=== PATIENT | female | born 1995 | race Caucasian/White ===

== ENCOUNTER 2017-08-13 17:55 | Emergency (ER) | payer OTHER ==
[2017-08-13 18:13] VITALS: BP 134/73; PULSE 80; RESP 18; TEMP 99.5
[2017-08-13] MEDS ORDERED: METOCLOPRAMIDE 5 MG/ML 2 ML VIAL IVP STA (19:06)
[2017-08-13] MEDS ORDERED: SODIUM CHLORIDE 0.9% 1,000 ML IV STA (19:06)
--- NOTE | 2017-08-13 19:09 | ED ---
General Adult HPI - General Chief complaint: Nausea/Vomiting/Diarrhea Stated complaint: Vomiting. Newly Time Seen by Provider: 08/13/17 19:02 Source: patient, RN notes reviewed Mode of arrival: ambulatory Limitations: no limitations - History of Present Illness Initial comments: 22-year-old female presents to the emergency department with a chief complaint of nausea vomiting . Patient states is about 5 or 6 weeks . Patient states that she is having a lot of nausea vomiting. She able to keep water down but she is unable to keep down. She states no pain discomfort no vaginal bleeding. Patient is a . Patient states she called her doctor and they referred her here. Patient states he keep water down. She was concerned due to the vomiting so she thought that she should be evaluated. Patient denies any recent fever, chills, shortness of breath, chest pain, back pain, abdominal pain, numbness or tingling, dysuria or hematuria, constipation or diarrhea, headaches or visual changes, or any other current symptoms. - Related Data Home Medications Medication Instructions Recorded Confirmed No Known Home Medications [No 08/13/17 08/13/17 Known Home Medications] Allergies Allergy/AdvReac Type Severity Reaction Status Date / Time No Known Allergies Allergy Verified 08/13/17 19:14 Review of Systems ROS Statement: Those systems with pertinent positive or pertinent negative responses have been documented in the HPI. ROS Other: All systems not noted in ROS Statement are negative. 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 Absent: scleral icterus, conjunctival injection, periorbital swelling ENT exam: Present: normal exam, mucous membranes moist Neck exam: Present: normal inspection. Absent: tenderness, meningismus, lymphadenopathy Respiratory exam: Present: normal lung sounds bilaterally. Absent: respiratory distress, wheezes, rales, rhonchi, stridor Cardiovascular Exam: Present: regular rate, normal rhythm, normal heart sounds. Absent: systolic murmur, diastolic murmur, rubs, gallop, clicks GI/Abdominal exam: Present: soft, normal bowel sounds. Absent: distended, tenderness, guarding, rebound, rigid Neurological exam: Present: alert, oriented X3 Psychiatric exam: Present: normal affect, normal mood Skin exam: Present: warm, dry, intact, normal color. Absent: rash Course Vital Signs 08/13/17 18:09 Temperature 99.5 F Pulse Rate 80 Respiratory 18 Rate Blood Pressure 134/73 O2 Sat by Pulse 99 Oximetry - Reevaluation(s) Reevaluation #1: 08/13/17 19:46 Patient appeared to the department prior to workup for her nausea. At this time unable to locate the patient. Unable to educate the patient was amenable to discuss discharge for return parameters. Medical Decision Making - Medical Decision Making 22-year-old female presents to the emergency department with a chief complaint of nausea and vomiting in . Disposition Clinical Impression: Nausea Disposition: Left Against Medical Advice Condition: Undetermined Referrals: None,Stated [Primary Care Provider] - 1-2 days Time of Disposition: 19:47
== END 2017-08-13 19:51 | disposition left against medical advice (07) ==
LOC: EC 17:55
DX: O21.9 Vomiting of pregnancy, unspecified (principal); Z3A.01 Less than 8 weeks gestation of pregnancy
CPT/HCPCS: 99283

== ENCOUNTER 2018-12-28 15:41 | Observation (INO) | payer OTHER ==
[2018-12-28] MEDS ORDERED: SODIUM CHLORIDE 0.9% 1,000 ML IV STA (16:21)
[2018-12-28] MEDS ORDERED: ONDANSETRON 4 MG/2 ML VIAL IVP STA (16:21)
[2018-12-28 16:37] LABS: Basophils % (A) 0 %; Eosinophils # (A) 0.1 k/uL (0-0.7); Eosinophils % (A) 1 %; HCT 34.2 % (34.0-46.0); HGB 11.7 gm/dL (11.4-16.0); Lymphocytes # (A) 1.2 k/uL (1.0-4.8); Lymphocytes % (A) 14 %; MCH 29.2 pg (25.0-35.0); MCHC 34.2 g/dL (31.0-37.0); MCV 85.5 fL (80.0-100.0); Mean Platelet Volume 7.4; Monocytes # (A) 0.2 k/uL (0-1.0); Monocytes % (A) 3 %; Neutrophils # (A) 6.6 k/uL (1.3-7.7); Neutrophils % (A) 81 %; Platelet Count 229 k/uL (150-450); RDW 13.6 % (11.5-15.5); WBC 8.2 k/uL (3.8-10.6)
[2018-12-28 16:49] LABS: ALT 28 U/L (9-52); AST 20 U/L (14-36); Albumin 4.3 g/dL (3.5-5.0); Alkaline Phosphatase 54 U/L (38-126); Amylase 82 U/L (30-110); Anion Gap 14 mmol/L; Blood Urea Nitrogen 10 mg/dL (7-17); Calcium 9.2 mg/dL (8.4-10.2); Carbon Dioxide 15 mmol/L (22-30); Chloride 108 mmol/L (98-107); Glucose 80 mg/dL (74-99); Lipase 94 U/L (23-300); Potassium 3.6 mmol/L (3.5-5.1); Sodium 137 mmol/L (137-145); Total Bilirubin 0.9 mg/dL (0.2-1.3); Total Protein 6.9 g/dL (6.3-8.2)
[2018-12-28] MEDS: SODIUM CHLORIDE 0.9% 1,000 ML IV SCH (17:07)
--- NOTE | 2018-12-28 17:32 | ED ---
Nausea/Vomiting/Diarrhea HPI - General Source: patient, RN notes reviewed, old records reviewed Mode of arrival: EMS Limitations: no limitations <April Davis - Last Filed: 12/28/18 18:36> <George Hernandez - Last Filed: 12/28/18 18:54> - General Chief complaint: Nausea/Vomiting/Diarrhea Stated complaint: N/V Time Seen by Provider: 12/28/18 15:47 - History of Present Illness Initial comments: Alanis is a 23-year-old female presents to emergency department today after a syncopal episode while she was with her grandmother. She reports she's been under immense stress and has not been eating well over the past 3 days. She states she's been anxious and worked herself up to a panic attack. She states she's been having some vomiting episodes. She denies any chest or abdominal pain. She has a known history of Taiko-Vwvdbzzmv-Ktxgc syndrome. Patient states that she has has no headache. She reports that when she passed out today she did not fall to hit her head on the ground. She states that she has no complaints of pain at this time. (April Davis) - Related Data Home Medications Medication Instructions Recorded Confirmed No Known Home Medications 08/13/17 08/13/17 Allergies Allergy/AdvReac Type Severity Reaction Status Date / Time No Known Allergies Allergy Verified 12/28/18 15:49 Review of Systems ROS Other: All systems not noted in ROS Statement are negative. <April Davis - Last Filed: 12/28/18 18:36> ROS Other: All systems not noted in ROS Statement are negative. <George Hernandez - Last Filed: 12/28/18 18:54> ROS Statement: Those systems with pertinent positive or pertinent negative responses have been documented in the HPI. 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 History of Any Multi-Drug Resistant Organisms: None Reported Past Surgical History: No Surgical Hx Reported Past Anesthesia/Blood Transfusion Reactions: No Reported Reaction Past Psychological History: No Psychological Hx Reported Smoking Status: Never smoker Past Alcohol Use History: None Reported Past Drug Use History: None Reported - Past Family History Mother Family Medical History: No Reported History <April Davis - Last Filed: 12/28/18 18:36> General Exam Limitations: no limitations General appearance: alert, in no apparent distress Head exam: Present: atraumatic, normocephalic, normal inspection Eye exam: Present: normal appearance, PERRL, EOMI. Absent: scleral icterus, conjunctival injection, periorbital swelling ENT exam: Present: normal exam, mucous membranes moist Neck exam: Present: normal inspection. Absent: tenderness, meningismus, lymphadenopathy Respiratory exam: Present: normal lung sounds bilaterally. Absent: respiratory distress, wheezes, rales, rhonchi, stridor Cardiovascular Exam: Present: regular rate, normal rhythm, normal heart sounds. Absent: systolic murmur, diastolic murmur, rubs, gallop, clicks GI/Abdominal exam: Present: soft, normal bowel sounds. Absent: distended, tenderness, guarding, rebound, rigid Extremities exam: Present: normal inspection, full ROM, normal capillary refill. Absent: tenderness, pedal edema, joint swelling, calf tenderness Back exam: Present: normal inspection Neurological exam: Present: alert, oriented X3, CN II-XII intact Psychiatric exam: Present: normal affect, normal mood Skin exam: Present: warm, dry, intact, normal color. Absent: rash <April Davis - Last Filed: 12/28/18 18:36> - General Exam Comments Initial Comments: Well-appearing 23-year-old female. Alert and oriented 3. No significant distress. Patient appears somewhat anxious. (April Davis) Course Vital Signs 12/28/18 12/28/18 15:46 18:32 Temperature 97.4 F L Pulse Rate 88 88 Respiratory 16 16 Rate Blood Pressure 119/81 111/69 O2 Sat by Pulse 99 98 Oximetry Medical Decision Making - Lab Data Result diagrams: 12/28/18 16:25 12/28/18 16:25 <April Davis - Last Filed: 12/28/18 18:36> - Lab Data Result diagrams: 12/28/18 16:25 12/28/18 16:25 <George Hernandez - Last Filed: 12/28/18 18:54> - Medical Decision Making 23-year-old female with syncopal episode with known history of blood Parkinson White. She states she's been having some nausea and vomiting as well as anxiety. She is on her menstrual cyst the father for children has recently left her. She reports that her symptoms are related to panic attack and likely dehydration. The patient's history of Parkinson White would like to admit the Patient for cardiac workup. She denies any chest pain at this time. Patient was given a liter bolus at this time and started on maintenance fluids. Reevaluation she is resting comfortably in bed. I discussed the concerns for staple episode with a history of Swann Parkinson Axel. Patient agrees to admission. All questions answered. She does previously see Dr. Mahajan for cardiology. (April Davis) Case was discussed with PA. Chart reviewed. EKG reviewed. Case was discussed with Dr. Cope, who will admit for hospital call. (George Hernandez) - Lab Data Lab Results 12/28/18 12/28/18 12/28/18 Range/Units 16:25 16:25 17:05 WBC 8.2 (3.8-10.6) k/uL RBC 4.00 (3.80-5.40) m/uL Hgb 11.7 (11.4-16.0) gm/dL Hct 34.2 (34.0-46.0) % MCV 85.5 (80.0-100.0) fL MCH 29.2 (25.0-35.0) pg MCHC 34.2 (31.0-37.0) g/dL RDW 13.6 (11.5-15.5) % Plt Count 229 (150-450) k/uL Neutrophils % 81 % Lymphocytes % 14 % Monocytes % 3 % Eosinophils % 1 % Basophils % 0 % Neutrophils # 6.6 (1.3-7.7) k/uL Lymphocytes # 1.2 (1.0-4.8) k/uL Monocytes # 0.2 (0-1.0) k/uL Eosinophils # 0.1 (0-0.7) k/uL Basophils # 0.0 (0-0.2) k/uL Sodium 137 (137-145) mmol/L Potassium 3.6 (3.5-5.1) mmol/L Chloride 108 H (98-107) mmol/L Carbon Dioxide 15 L (22-30) mmol/L Anion Gap 14 mmol/L BUN 10 (7-17) mg/dL Creatinine 0.33 L (0.52-1.04) mg/dL Est GFR (CKD-EPI)AfAm >90 (>60 ml/min/1.73 sqM) Est GFR (CKD-EPI)NonAf >90 (>60 ml/min/1.73 sqM) Glucose 80 (74-99) mg/dL Calcium 9.2 (8.4-10.2) mg/dL Total Bilirubin 0.9 (0.2-1.3) mg/dL AST 20 (14-36) U/L ALT 28 (9-52) U/L Alkaline Phosphatase 54 (38-126) U/L Total Protein 6.9 (6.3-8.2) g/dL Albumin 4.3 (3.5-5.0) g/dL Amylase 82 (30-110) U/L Lipase 94 (23-300) U/L Urine Color Yellow Urine Appearance Cloudy H (Clear) Urine pH 5.5 (5.0-8.0) Ur Specific [place] 1.030 (1.001-1.035) Urine Protein 1+ H (Negative) Urine Glucose (UA) Negative (Negative) Urine Ketones 4+ H (Negative) Urine Blood Negative (Negative) Urine Nitrite Negative (Negative) Urine Bilirubin Negative (Negative) Urine Urobilinogen 2.0 (<2.0) mg/dL Ur Leukocyte Esterase Trace H (Negative) Urine RBC 3 (0-5) /hpf Urine WBC 3 (0-5) /hpf Ur Squamous Epith Cells 9 H (0-4) /hpf Urine Bacteria Occasional H (None) /hpf Urine Mucus Moderate H (None) /hpf Urine HCG, Qual (Not Detectd) 12/28/18 Range/Units 17:05 WBC (3.8-10.6) k/uL RBC (3.80-5.40) m/uL Hgb (11.4-16.0) gm/dL Hct (34.0-46.0) % MCV (80.0-100.0) fL MCH (25.0-35.0) pg MCHC (31.0-37.0) g/dL RDW (11.5-15.5) % Plt Count (150-450) k/uL Neutrophils % % Lymphocytes % % Monocytes % % Eosinophils % % Basophils % % Neutrophils # (1.3-7.7) k/uL Lymphocytes # (1.0-4.8) k/uL Monocytes # (0-1.0) k/uL Eosinophils # (0-0.7) k/uL Basophils # (0-0.2) k/uL Sodium (137-145) mmol/L Potassium (3.5-5.1) mmol/L Chloride (98-107) mmol/L Carbon Dioxide (22-30) mmol/L Anion Gap mmol/L BUN (7-17) mg/dL Creatinine (0.52-1.04) mg/dL Est GFR (CKD-EPI)AfAm (>60 ml/min/1.73 sqM) Est GFR (CKD-EPI)NonAf (>60 ml/min/1.73 sqM) Glucose (74-99) mg/dL Calcium (8.4-10.2) mg/dL Total Bilirubin (0.2-1.3) mg/dL AST (14-36) U/L ALT (9-52) U/L Alkaline Phosphatase (38-126) U/L Total Protein (6.3-8.2) g/dL Albumin (3.5-5.0) g/dL Amylase (30-110) U/L Lipase (23-300) U/L Urine Color Urine Appearance (Clear) Urine pH (5.0-8.0) Ur Specific [place] (1.001-1.035) Urine Protein (Negative) Urine Glucose (UA) (Negative) Urine Ketones (Negative) Urine Blood (Negative) Urine Nitrite (Negative) Urine Bilirubin (Negative) Urine Urobilinogen (<2.0) mg/dL Ur Leukocyte Esterase (Negative) Urine RBC (0-5) /hpf Urine WBC (0-5) /hpf Ur Squamous Epith Cells (0-4) /hpf Urine Bacteria (None) /hpf Urine Mucus (None) /hpf Urine HCG, Qual Detected (Not Detectd) 12/28/18 18:37 EKG shows normal sinus rhythm with full Parkinson White noted. Ventricular rate of 82 bpm. Verbal 108 ms. QS ration 114 ms. QT QTc is 43/511 ms. (April Davis) Disposition Is patient prescribed a controlled substance at d/c from ED?: No Time of Disposition: 18:40 <April Davis - Last Filed: 12/28/18 18:36> <George Hernandez - Last Filed: 12/28/18 18:54> Clinical Impression: Syncope, WPW (Tremk-Ewvptktcn-Ffsbe syndrome), Nausea & vomiting Disposition: HOME SELF-CARE Condition: Stable Referrals: None,Stated [Primary Care Provider] - 1-2 days
[2018-12-28 17:36] LABS: Appearance,Urine Cloudy (Clear); Bacteria,Urine Occasional /hpf; Bilirubin,Urine Negative (Negative); Blood,Urine Negative (Negative); Color,Urine Yellow; Glucose,Urine (UA) Negative (Negative); Ketones,Urine 4+ (Negative); Leukocyte Esterase,Urine Trace (Negative); Mucus,Urine Moderate /hpf; Nitrite,Urine Negative (Negative); PH, Urine 5.5 (5.0-8.0); Protein,Urine 1+ (Negative); RBC,Urine 3 /hpf (0-5); Squamous Epithelial Cell,Urine 9 /hpf (0-4); WBC,Urine 3 /hpf (0-5)
[2018-12-28] MEDS ORDERED: ACETAMINOPHEN TAB 325 MG TAB PO PRN (21:24)
[2018-12-29] MEDS: SODIUM CHLORIDE 0.9% 1,000 ML IV SCH (03:00)
[2018-12-29 05:09] LABS: Cholesterol 127 mg/dL (<200); HDL Cholesterol 45 mg/dL (40-60); LDL Cholesterol,Calculated 64 mg/dL (0-99); Triglycerides 91 mg/dL (<150)
[2018-12-29 05:39] VITALS: TEMP 98.4
[2018-12-29 07:10] VITALS: RESP 16
--- NOTE | 2018-12-29 08:59 | P.CRDCN ---
History of Present Illness History of present illness: This is a pleasant 23-year-old female past medical history significant for WPW first noted in 2013. She followed with Dr. Mahajan in the office. She presented to the hospital with symptoms of nausea, vomiting, dizziness and pre- syncope. She just recently found out she was . Her symptoms of nausea and vomiting have been going on for approximately 3 days and she has not been eating or drinking. Yesterday she was vomiting and then she started feeling extremely light headed and felt like her vision went black. She did no actually lose consciousness or fall to the ground. This only happened one time and resolved on its own. At the time of my exam she is seen and examined resting comfortably in bed in no acute distress. She states her symptoms of nausea and vomiting have improved since admission. She has had no further symptoms of dizziness or presyncope. EKG reveals sinus mechanism with ST abnormalities and T-wave inverson in the precordial leads with a delta wave noted in V2. Laboratory data reviewed, WBC 8.2, hemoglobin 11.7, platelets 229, sodium 137, potassium 3.6, creatinine 0.33, cardiac enzymes negative 3, LDL 64 and HDL 45. At the time of my exam: CONSTITUTIONAL: Denies fever. Denies chills. EYES: Denies blurred vision. Denies vision changes. Denies eye pain. EARS, NOSE, MOUTH & THROAT: Denies headache. Denies sore throat. Denies ear pain. CARDIOVASCULAR: Denies chest pain. Denies shortness of breath. Denies orthopnea. Denies PND. Denies palpitations. RESPIRATORY: Denies cough. GASTROINTESTINAL: Denies abdominal pain. Denies diarrhea. Denies constipation. Denies nausea. Denies vomiting. MUSCULOSKELETAL: Denies myalgias. INTEGUMENTARY: Denies pruitis. Denies rash. NEUROLOGIC: Denies numbness. Denies tingling. Denies weakness. PSYCHIATRIC: Denies anxiety. Denies depression. ENDOCRINE: Denies fatigue. Denies weight change. Denies polydipsia. Denies polyurina. GENITOURINARY: Denies burning, hematuria or urgency with micturation. HEMATOLOGIC: Denies history of anemia. Denies bleeding. Blood pressure 108/65 heart rate 85 afebrile maintaining oxygen saturation on room air GENERAL: This is a 23-year-old female in no apparent distress at the time of my examination. HEENT: Head is atraumatic, normocephalic. Pupils are equal, round. Sclerae anicteric. Conjunctivae are clear. Mucous membranes of the mouth are moist. Neck is supple. There is no jugular venous distention. No carotid bruit is heard. LUNGS: Clear to auscultation no wheezes, rales or rhonchi. No chest wall tenderness is noted on palpation or with deep breathing. HEART: Regular rate and rhythm without murmurs, rubs or gallops. S1 and S2 heard. ABDOMEN: Soft, nontender. Bowel sounds are heard. No organomegaly noted. EXTREMITIES: No evidence of peripheral edema and no calf tenderness noted. VASCULAR: Radial and dorsalis pedis pulses palpated, no evidence of clubbing. NEUROLOGIC: Patient is awake, alert and oriented x3. ASSESSMENT Dehydration, poor oral intake, nausea/vomiting and presyncopal spell History of Swann Parkinson White PLAN Check for orthostatic changes. Obtain 2-D echocardiogram and Doppler study to assess cardiac structure and fun ction. Hydrate the patient and increase oral intake. No further cardiac workup at this time. Follow-up in the office with Dr. Mahajan upon discharge. Thank you kindly for this consultation. Nurse Practitioner note has been reviewed, I agree with a documented findings and plan of care. Patient was seen and examined. 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 History of Any Multi-Drug Resistant Organisms: None Reported Past Surgical History: No Surgical Hx Reported Past Anesthesia/Blood Transfusion Reactions: No Reported Reaction Past Psychological History: No Psychological Hx Reported Smoking Status: Never smoker Past Alcohol Use History: None Reported Past Drug Use History: None Reported - Past Family History Mother Family Medical History: No Reported History Medications and Allergies Home Medications Medication Instructions Recorded Confirmed Type Acetaminophen Tab [Tylenol Tab] 325 mg PO Q6H PRN 12/28/18 12/28/18 History Allergies Allergy/AdvReac Type Severity Reaction Status Date / Time No Known Allergies Allergy Verified 12/28/18 19:19 Physical Exam Vitals: Vital Signs Temp Pulse Resp BP Pulse Ox 12/29/18 07:07 85 16 108/65 97 12/29/18 05:38 98.4 F 92 19 116/71 97 12/28/18 19:19 98.1 F 85 19 116/82 95 12/28/18 18:32 88 16 111/69 98 12/28/18 15:46 97.4 F L 88 16 119/81 99 Intake and Output 12/28/18 12/29/18 12/29/18 22:59 06:59 14:59 Other: Weight 45.359 kg Results 12/28/18 16:25 12/28/18 16:25 Cardiac Enzymes 12/28/18 12/28/18 12/28/18 Range/Units 16:25 16:25 22:54 AST 20 (14-36) U/L Troponin I <0.012 <0.012 (0.000-0.034) ng/mL 12/29/18 Range/Units 04:41 AST (14-36) U/L Troponin I <0.012 (0.000-0.034) ng/mL Lipids 12/29/18 Range/Units 04:41 Triglycerides 91 (<150) mg/dL Cholesterol 127 (<200) mg/dL HDL Cholesterol 45 (40-60) mg/dL CBC 12/28/18 Range/Units 16:25 WBC 8.2 (3.8-10.6) k/uL RBC 4.00 (3.80-5.40) m/uL Hgb 11.7 (11.4-16.0) gm/dL Hct 34.2 (34.0-46.0) % Plt Count 229 (150-450) k/uL Comprehensive Metabolic Panel 12/28/18 Range/Units 16:25 Sodium 137 (137-145) mmol/L Potassium 3.6 (3.5-5.1) mmol/L Chloride 108 H (98-107) mmol/L Carbon Dioxide 15 L (22-30) mmol/L BUN 10 (7-17) mg/dL Creatinine 0.33 L (0.52-1.04) mg/dL Glucose 80 (74-99) mg/dL Calcium 9.2 (8.4-10.2) mg/dL AST 20 (14-36) U/L ALT 28 (9-52) U/L Alkaline Phosphatase 54 (38-126) U/L Total Protein 6.9 (6.3-8.2) g/dL Albumin 4.3 (3.5-5.0) g/dL Current Medications Generic Name Dose Route Start Last Admin Trade Name Freq PRN Reason Stop Dose Admin Acetaminophen 650 mg 12/28/18 21:24 Tylenol Tab PO Q6H PRN Pain Sodium Chloride 1,000 mls @ 100 mls/hr 12/28/18 17:00 12/29/18 03:00 Saline 0.9% IV 100 mls/hr .Q10H LIZZETH Administration Intake and Output 12/28/18 12/29/18 12/29/18 22:59 06:59 14:59 Other: Weight 45.359 kg 12/28/18 16:25 12/28/18 16:25
[2018-12-29 10:45] VITALS: BMI 18.8
[2018-12-29] MEDS ORDERED: ONDANSETRON 4 MG TAB PO PRN (11:10)
[2018-12-29 11:13] VITALS: BP 126/71; PULSE 106
--- NOTE | 2018-12-29 13:22 | ECHOF ---
Referral Reason:dizziness,syncope MEASUREMENTS -------- HEIGHT: 152.4 cm WEIGHT: 45.4 kg BP: RVIDd: 2.0 cm (< 3.3) IVSd: 0.6 cm (0.6 - 1.1) LVIDd: 4.2 cm (3.9 - 5.3) LVPWd: 0.6 cm (0.6 - 1.1) IVSs: 1.1 cm LVIDs: 2.9 cm LVPWs: 0.9 cm LA Diam: 2.3 cm (2.7 - 3.8) Ao Diam: 2.5 cm (2.0 - 3.7) AV Cusp: 2.0 cm (1.5 - 2.6) LA Diam: 2.1 cm (2.7 - 3.8) MV EXCURSION: 25.163 mm (> 18.000) MV EF SLOPE: 136 mm/s (70 - 150) EPSS: 0.2 cm MV E Ender: 0.83 m/s MV DecT: 179 ms MV A Ender: 0.73 m/s MV E/A Ratio: 1.13 RAP: 5.00 mmHg RVSP: 22.27 mmHg FINDINGS -------- Sinus rhythm. This was a technically adequate study. LV size, wall thickness and systolic function are normal, with an EF greater than 55%. The left eric tricular size is normal. The right ventricle is normal in size. The left atrial size is normal. The right atrial size is normal. The aortic valve is trileaflet, and appears structurally normal. No aortic stenosis or regurgitation. Mild mitral annular calcification present. Mild mitral regurgitation is present. Mild tricuspid regurgitation present. There is no evidence of pulmonary hypertension. The right v entricular systolic pressure, as measured by Doppler, is 22.27mmHg. There is no pulmonic regurgitation present. The aortic root size is normal. There is no pericardial effusion. CONCLUSIONS -------- 1. LV size, wall thickness and systolic function are normal, with an EF greater than 55%. 2. The left ventricular size is normal. 3. The right ventricle is normal in size. 4. The left atrial size is normal. 5. The right atrial size is normal. 6. The aortic valve is trileaflet, and appears structurally normal. No aortic stenosis or regurgitati on. 7. Mild mitral annular calcification present. 8. Mild mitral regurgitation is present. 9. Mild tricuspid regurgitation present. 10. There is no evidence of pulmonary hypertension. 11. The right ventricular systolic pressure, as measured by Doppler, is 22.27mmHg. 12. There is no pulmonic regurgitation present. 13. The aortic root size is normal. 14. There is no pericardial effusion. BOX COVERING MACHINE OPERATOR: Shaina Sauceda RDCS
--- NOTE | 2018-12-29 17:41 | HP ---
HISTORY AND PHYSICAL CHIEF COMPLAINT: Syncope. HISTORY OF PRESENT ILLNESS: This is the first known admission for this 23-year-old white female. She is under a great deal of stress in that her boyfriend just left. They have 3 children together. She has history of Kuqne-Wfqwqwofn-Erjca and has not been handling things well at all. She passed out. She apparently had no warning, or, etc. She has never done this before and she has never had seizure problem. She has had no chest pain, headache, focal neurologic deficits, diaphoresis, fever and chills, etc. PAST MEDICAL HISTORY: Past medical history, family history and personal and social histories are otherwise unremarkable and noncontributory. She is not taking any medication and she is not allergic to any. She has had no surgery and she does not smoke. PHYSICAL EXAM: Blood pressure 147/77 with a pulse of 101, respirations 36 and she is afebrile. In general, she appeared to be slender, pale and in no acute distress. Skin color was normal otherwise. Skin is warm and dry. Lymph nodes not enlarged. Head, ears, eyes, nose, mouth, and throat were normal. Pupils equal, round, reactive to light and accommodation. Extraocular movements were intact. Neck was supple. Ears, nose, mouth, and throat were otherwise normal. Chest is clear. Cardiac exam is normal. No murmurs or extra sounds. The abdomen is flat, soft, nontender. Extremities: Normal. Neurologically she is intact. IMPRESSION: 1. Syncopal episode. 2. Anxiety. 3. History of Qwqei-Hhpvrtzaz-Rtbko syndrome. PLAN: 1. Bed rest. 2. IV fluids. 3. Cardiology consult. MMODL / IJN: [id number] /
--- NOTE | 2018-12-29 18:55 | DS ---
DISCHARGE SUMMARY CHIEF COMPLAINT: Syncope. HISTORY OF PRESENT ILLNESS AND PHYSICAL EXAM: Details of this lady's history and physical can be found in the initial workup. LABORATORY STUDIES: While she was in the hospital, she had laboratory studies, details of which can be found in the laboratory section of her chart. COURSE IN HOSPITAL: After admission, she was placed on bedrest, started on intravenous fluids and she had no further problems including arrhythmias, syncope, etc. It was felt that she could go home and she will go home on her usual activity, diet and medication. She will be given a prescription for Zofran. While she has in the hospital, she found out that she was . FINAL DIAGNOSES: 1. Syncope. 2. Anxiety. 3. Intrauterine . 4. Nausea and vomiting. 5. Anorexia. PLAN: Discharge on Zofran and follow up in several days. She is also instructed to start taking a vitamin. MMODL / CASIEN: [id number] /
== END 2018-12-29 12:16 | disposition home or self-care (01) ==
LOC: EC 15:41 → 1SOBS 18:54
PROVIDERS: ADMIT Family Medicine; ATTEND Family Medicine
DX: R55 Syncope and collapse (principal); I45.6 Pre-excitation syndrome; E86.0 Dehydration; R63.0 Anorexia; Z68.1 Body mass index [BMI] 19.9 or less, adult; R11.2 Nausea with vomiting, unspecified; Z33.1 Pregnant state, incidental
CPT/HCPCS: 96361; 96374; 99285; 36415; 93005; 93306; 80061; 80053; 82150; 83690; 84484 ×2; 85025; 81001; 81025; G0378 ×2; J2405

== ENCOUNTER 2019-02-15 18:55 | Emergency (ER) | payer OTHER ==
[2019-02-15 19:01] VITALS: BP 115/79; PULSE 79; RESP 18; TEMP 98.2
[2019-02-15] MEDS ORDERED: HYDROcodone/APAP 7.5-325MG 1 EACH TAB PO ONE (19:25)
[2019-02-15] MEDS ORDERED: AMOXIC-POT CLAV 875-125MG 1 EACH TAB PO STA (19:25)
--- NOTE | 2019-02-15 19:46 | ED ---
General Adult HPI - General Chief complaint: Dental/Oral Stated complaint: dental pain Time Seen by Provider: 02/15/19 19:03 Source: patient, RN notes reviewed, old records reviewed Mode of arrival: ambulatory Limitations: no limitations - History of Present Illness Initial comments: 43-year-old female patient no pertinent past medical history presents to ED with dental pain. Patient reports that she has history of poor dentition, had a tooth break in the right lower jaw proximal to distal. Patient now has pain for 1 day. She denies any other complaints. She states that she is not . Systemic: Pt denies fatigue, myalgia, fever/chills, rash. Pt denies weakness, night sweats, weight loss. Neuro: Pt denies headache, visual disturbances, syncope or pre-syncope. HEENT: Pt denies ocular discharge or irritation, otalgia, rhinorrhea, pharyngitis or notable lymphadenopathy. Cardiopulmonary: Pt denies chest pain, SOB, heart palpitations, dyspnea on exertion. Abdominal/GI: Pt denies abdominal pain, n/v/d. : Pt denies dysuria, burning w/ urination, frequency/urgency. Denies new onset urinary or bowel incontinence. MSK: Pt denies myalgia, loss of strength or function in extremities. Neuro: Pt denies new onset weakness, paresthesias. - Related Data Previous Rx's Medication Instructions Recorded Ondansetron [Zofran] 4 mg PO Q8HR PRN #10 tab 12/29/18 Amoxicillin/Potassium Clav 1 each PO Q12HR #20 tab 02/15/19 [Augmentin 875-125 Tablet] Allergies Allergy/AdvReac Type Severity Reaction Status Date / Time No Known Allergies Allergy Verified 12/28/18 19:19 Review of Systems ROS Statement: Those systems with pertinent positive or pertinent negative responses have been documented in the HPI. ROS Other: All systems not noted in ROS Statement are negative. 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, migraines, past syncope when she had influenza. History of Any Multi-Drug Resistant Organisms: None Reported Past Surgical History: No Surgical Hx Reported Past Anesthesia/Blood Transfusion Reactions: No Reported Reaction Past Psychological History: Anxiety Smoking Status: Current some day smoker Past Alcohol Use History: Occasional - Past Family History Father History Unknown: Yes Additional Family Medical History / Comment(s): Father resides in [facility] and pt does not know his medical hx. Mother Family Medical History: No Reported History Additional Family Medical History / Comment(s): Mother is healthy General Exam - General Exam Comments Initial Comments: Constitutional: NAD, AOX3, Pt has pleasant affect. HEENT: NC/AT, trachea midline, neck supple, no lymphadenopathy. Posterior pharynx non erythematous, without exudates. External ears appear normal, without discharge. Mucous membranes moist. Eyes PERRLA, EOM intact. There is no scleral icterus. No pallor noted. Broken 32nd tooth. Mild amount of erythema. No drainable abscess. Dental exam reveals mildly poor dentition. No other areas of erythema. Cardiopulmonary: RRR, no murmurs, rubs or gallops, no JVD noted. Lungs CTAB in anterior and posterior snyder. No peripheral edema. Abdominal exam: Abdomen soft and non-distended. Abdomen non-tender to palpation in all 4 quadrants. Bowel sounds active in LLQ. No hepatosplenomegaly. No ecchymosis Neuro: CN II-XII grossly intact. No nuchal rigidity. MSK: No posterior calf tenderness bilaterally, homans sign negative bilaterally. Posterior tibialis and radial pulse +2 bilaterally. Sensation intact in upper and lower extremities. Full active ROM in upper and lower extremities, 5/5 stregnth. Limitations: no limitations Course Vital Signs 02/15/19 18:59 Temperature 98.2 F Pulse Rate 79 Respiratory 18 Rate Blood Pressure 115/79 O2 Sat by Pulse 99 Oximetry Medical Decision Making - Medical Decision Making 43-year-old female patient no pertinent past medical history presents to ED with dental pain. Patient reports that she has history of poor dentition, had a tooth break in the right lower jaw proximal to distal. Patient now has pain for 1 day. She denies any other complaints. She states that she is not . Pt vital sign stable, afebrile. Physical exam displayed: Broken 32nd tooth. Mild amount of erythema. No drainable abscess. Dental exam reveals mildly poor dentition. No other areas of erythema. Patient administered 1 dose of pain medication and Augmentin ED. Patient was discharged with Augmentin. Patient to follow up with primary care provider and dentist in 1-[address] Patient not drive him home. Case discussed with Dr. Bro. Disposition Clinical Impression: Pain, dental Disposition: HOME SELF-CARE Condition: Stable Instructions (If sedation given, give patient instructions): Toothache (ED) Additional Instructions: Patient to adhere to previously discussed treatment plan and will take medication(s) as directed. Patient to follow up with PCP in 1-2 days. Patient to return to ED if symptoms do not improve. Follow-up with dentist as soon as possible. Follow up with primary care provider in 1-2 days. Prescriptions: Amoxicillin/Potassium Clav [Augmentin 875-125 Tablet] 1 each PO Q12HR #20 tab Is patient prescribed a controlled substance at d/c from ED?: No Referrals: None,Stated [Primary Care Provider] - 1-2 days
== END 2019-02-15 20:03 | disposition home or self-care (01) ==
LOC: EC 18:55
DX: K08.89 Other specified disorders of teeth and supporting structures (principal); F17.200 Nicotine dependence, unspecified, uncomplicated
CPT/HCPCS: 99283

== ENCOUNTER 2019-05-23 22:33 | Emergency (ER) | payer OTHER ==
[2019-05-23] MEDS ORDERED: LIDOCAINE 1% INJ 10MG/ML (20 ML MDV) SQ ONE (23:18)
[2019-05-23] MEDS ORDERED: CLINDAMYCIN 150 MG CAP PO STA (23:18)
--- NOTE | 2019-05-23 23:59 | ED ---
General Adult HPI - General Chief complaint: Dental/Oral Stated complaint: Dental Pain Time Seen by Provider: 05/23/19 22:55 Source: patient Mode of arrival: ambulatory Limitations: no limitations - History of Present Illness Initial comments: 24-year-old female patient presents to the emergency department today for evaluation of left upper dental pain. Patient states she did have a tooth break a couple of days ago and the pain has been worsening. Patient denies any facial swelling, fever, chills, nausea, or vomiting. Denies any trismus or difficulty swallowing. Patient is 35 weeks , reports normal movement, denies vaginal bleeding or discharge. Patient has not yet contacted a dentist. Patient denies any recent rash, shortness breath, chest pain, abdominal pain, diarrhea, constipation, back pain, numbness, tingling, dizziness, weakness, hematuria, dysuria, urinary urgency, urinary frequency, headache, visual changes, or any other complaints. - Related Data Previous Rx's Medication Instructions Recorded Clindamycin HCl 300 mg PO Q6H #40 cap 05/24/19 Allergies Allergy/AdvReac Type Severity Reaction Status Date / Time No Known Allergies Allergy Verified 12/28/18 19:19 Review of Systems ROS Statement: Those systems with pertinent positive or pertinent negative responses have been documented in the HPI. ROS Other: All systems not noted in ROS Statement are negative. 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, migraines, past syncope when she had influenza. History of Any Multi-Drug Resistant Organisms: None Reported Past Surgical History: No Surgical Hx Reported Past Anesthesia/Blood Transfusion Reactions: No Reported Reaction Past Psychological History: Anxiety Smoking Status: Current some day smoker Past Alcohol Use History: Occasional - Past Family History Father History Unknown: Yes Additional Family Medical History / Comment(s): Father resides in [facility] and pt does not know his medical hx. Mother Family Medical History: No Reported History Additional Family Medical History / Comment(s): Mother is healthy General Exam Limitations: no limitations General appearance: alert, in no apparent distress, other (This is a well-d eveloped, well-nourished adult female patient in mild distress related to pain. Vital signs upon presentation are temperature 97.9F, pulse 95, respirations 20, blood pressure 135/92, pulse ox 97% on room air.) ENT exam: Present: mucous membranes moist, other (There is very poor dentition with multiple dental caries. Left first molar is broken with exposed pulp. There is surrounding gingival erythema but no evidence for drainable abscess.). Absent: normal exam Respiratory exam: Present: normal lung sounds bilaterally. Absent: respiratory distress, wheezes, rales, rhonchi, stridor Cardiovascular Exam: Present: regular rate, normal rhythm, normal heart sounds. Absent: systolic murmur, diastolic murmur, rubs, gallop, clicks Neurological exam: Present: alert, oriented X3, CN II-XII intact Psychiatric exam: Present: normal affect, normal mood Skin exam: Present: warm, dry, intact, normal color. Absent: rash Course Vital Signs 05/23/19 05/24/19 22:52 00:12 Temperature 97.9 F 98 F Pulse Rate 95 90 Respiratory 20 18 Rate Blood Pressure 135/92 131/80 O2 Sat by Pulse 97 98 Oximetry Procedures - Nerve Block Consent Obtained: verbal consent Local Anesthetic Used: Lidocaine 1% Amount of anesthesia used: 3 Side: left Intraoral Nerve Block: superior alveolar Procedure Successful: Yes Complications: none Patient Tolerated Procedure: well, no complications Medical Decision Making - Medical Decision Making 24-year-old female patient who is 35 weeks presents to the emergency department today for evaluation of left upper dental pain. Physical examination did reveal broken first molar with exposed pulp. There is some surrounding gingival erythema but no evidence for dental abscess. We did perform nerve block as patient is quite uncomfortable. She is having no related symptoms. She was started on clindamycin. She is instructed to follow up with dentistry as soon as possible. She will be discharged to follow up with the primary care physician for recheck in 1-2 days. Return parameters were discussed in detail. She verbalizes understanding and agrees with this plan. Disposition Clinical Impression: Dental caries, Dental infection Disposition: HOME SELF-CARE Condition: Good Instructions (If sedation given, give patient instructions): Dental Caries (ED), Toothache (ED) Additional Instructions: Complete antibiotic prescription in full. Follow up with dentistry for recheck as soon as possible. Follow up with your primary care physician for recheck in 1-2 days. Return to the emergency department for recheck for any new, worsening, or concerning symptoms. Prescriptions: Clindamycin HCl 300 mg PO Q6H #40 cap Is patient prescribed a controlled substance at d/c from ED?: No Referrals: None,Stated [Primary Care Provider] - 1-2 days Time of Disposition: 23:58
[2019-05-24 00:13] VITALS: BP 131/80; PULSE 90; RESP 18; TEMP 98
== END 2019-05-24 00:17 | disposition home or self-care (01) ==
LOC: EC 22:33
DX: O99.613 Diseases of the digestive system complicating pregnancy, third trimester (principal); K02.9 Dental caries, unspecified; K04.7 Periapical abscess without sinus; Z3A.35 35 weeks gestation of pregnancy
CPT/HCPCS: 99282; 64400; J2001

== ENCOUNTER 2019-05-28 22:18 | Inpatient (IN) | payer OTHER ==
[2019-05-28 22:55] LABS: Amphetamine Screen,Urine Not Detected (NotDetected); Barbiturate Screen,Urine Not Detected (NotDetected); Benzodiazepines Screen,Urine Not Detected (NotDetected); Cocaine Screen,Urine Not Detected (NotDetected); Methadone Screen, Urine Not Detected (NotDetected); Opiate Screen,Urine Not Detected (NotDetected); Oxycodone Screen, Urine Not Detected (NotDetected); Phencyclidine Screen,Urine Not Detected (NotDetected); Tricyclic Antidepressant,Urine Not Detected (NotDetected); Urn Cannabinoid Scrn Not Detected (NotDetected)
[2019-05-28 23:04] LABS: Appearance,Urine Clear (Clear); Bilirubin,Urine Negative (Negative); Blood,Urine Small (Negative); Color,Urine Colorless; Glucose,Urine (UA) Negative (Negative); Ketones,Urine Negative (Negative); Leukocyte Esterase,Urine Negative (Negative); Nitrite,Urine Negative (Negative); Protein,Urine Negative (Negative); RBC,Urine <1 /hpf (0-5); Specific Gravity,Urine 1.002 (1.001-1.035); Squamous Epithelial Cell,Urine <1 /hpf (0-4); Urobilinogen,Urine <2.0 mg/dL (<2.0)
[2019-05-29 00:10] LABS: Basophils % (A) 1 %; Eosinophils # (A) 0.2 k/uL (0-0.7); Eosinophils % (A) 3 %; HCT 27.4 % (34.0-46.0); HGB 8.9 gm/dL (11.4-16.0); Lymphocytes # (A) 2.6 k/uL (1.0-4.8); Lymphocytes % (A) 32 %; MCH 26.1 pg (25.0-35.0); MCHC 32.4 g/dL (31.0-37.0); MCV 80.5 fL (80.0-100.0); Mean Platelet Volume 8.5; Monocytes # (A) 0.4 k/uL (0-1.0); Monocytes % (A) 5 %; Neutrophils # (A) 4.6 k/uL (1.3-7.7); Neutrophils % (A) 56 %; Platelet Count 287 k/uL (150-450); RDW 14.4 % (11.5-15.5); WBC 8.2 k/uL (3.8-10.6)
[2019-05-29] MEDS ORDERED: LIDOCAINE 0.5% (PF) 5 MG/ML (50 ML SDV) SQ PRN (00:44)
[2019-05-29] MEDS ORDERED: OXYTOCIN 10 UNIT/ML 1 ML VIAL IM PRN (00:44)
[2019-05-29] MEDS ORDERED: TERBUTALINE 1 MG/ML VIAL SQ PRN (00:44)
[2019-05-29] MEDS ORDERED: AMPICILLIN 2,000 MG in SODIUM CHLORIDE 0.9% 100 ML IVPB STA (00:44)
[2019-05-29] MEDS ORDERED: CARBOPROST TROMETHAMINE 250 MCG/ML 1 ML AMP IM PRN (00:44)
[2019-05-29] MEDS ORDERED: METHYLERGONOVINE 0.2 MG/ML 1 ML AMP IM PRN (00:44)
[2019-05-29] MEDS ORDERED: OXYTOCIN 30 UNITS/500 ML NS 30 UNIT in SALINE 1 500ML.BAG IV SCH (00:45)
[2019-05-29] MEDS ORDERED: LACTATED RINGERS 1,000 ML IV SCH (00:45)
[2019-05-29] MEDS: LACTATED RINGERS 1,000 ML IV SCH ×2 (01:01→10:19)
--- NOTE | 2019-05-29 01:03 | US ---
EXAM: US Second or Third Trimester , Transabdominal and Transvaginal CLINICAL HISTORY: ITS.REASON US Reason: no care, complete OB ultrasound TECHNIQUE: Real-time transabdominal and endovaginal obstetrical ultrasound of the maternal pelvis and a second or third trimester with image documentation. Endovaginal imaging was used for better evaluation of the fetus and adnexa. COMPARISON: No relevant prior studies available. FINDINGS: Fetus: Coffey. Heart rate: Positive heart tones noted at 126 bpm. Presentation: There is a single intrauterine gestation identified in the vertex position. Placenta: The placenta is fundal and posterior in location. Hypoechoic areas within the placenta are most consistent with developing venous lakes. No evidence for abruption. Amniotic fluid: The BALBIR is 8.17 cm. Anatomy: See below. BIOMETRICS Gestational age: Estimated gestational age by ultrasound is 35 weeks 1 day. FATMATA: The estimated date of delivery is 07/01/2019. EFW: The estimated weight is 2708 g. BPD: The biparietal diameter is 8.6 cm consistent with 34 weeks 5 days. HC: Head circumference measures 31.59 cm consistent with 35 weeks 3 days. AC: The abdominal circumference is 31.71 cm consistent with 35 weeks 4 days. FL: Femur length is 6.97 cm consistent with 35 weeks 5 days. MATERNAL: Uterus: Unremarkable. No myometrial mass. Cervix: The cervix is closed measuring 2.2 cm. Free fluid: No free fluid. IMPRESSION: 1. There is a single intrauterine gestation identified in the vertex position. Positive heart tones noted at 126 bpm. 2. The placenta is fundal and posterior in location. No significant abnormality identified. No evidence for previa. The cervix is closed measuring 2.2 cm. 3. Estimated gestational age by ultrasound is 35 weeks 1 day. The estimated date of delivery is 07/01/2019. 4. The estimated weight is 2708 g. 5. The BALBIR is 8.17 cm. This is low normal but above the 5th percentile for dates.
[2019-05-29 01:07] VITALS: BMI 24.3
[2019-05-29] MEDS ORDERED: ROPIVACAINE 100 MG, fentaNYL (PF) 200 MCG in SODIUM CHLORIDE 0.9% 76 ML EPIDURAL ONE (04:10)
[2019-05-29] MEDS: AMPICILLIN 1,000 MG in SODIUM CHLORIDE 0.9% 50 ML IVPB SCH ×2 (05:20→10:19)
--- NOTE | 2019-05-29 07:22 | P.HPOB ---
History of Present Illness H&P Date: 05/29/19 Chief Complaint: Leaking of fluid and bleeding This is a 24-year-old female 4 para 3 with an unknown date of confinement with a last menstrual period in early August, who presented to labor and delivery with complaints of leaking of fluid at about 9:30 PM last night and then after she started to leak she noticed some vaginal bleeding. She did pass some small clot and then came to the hospital. She has been feeling good movement. In triage she was evaluated and found to be positive amnisure and some minimal bleeding noted. A complete ultrasound was performed and the baby was measuring at 35 and one sevenths weeks. Placenta looked okay and fluid level was 8.2. She was admitted for possible rupture of membranes and vaginal bleeding. Obstetrical history: . History of 3 vaginal deliveries at term. She states she was 2 weeks over on all 3 of her other deliveries and was induced. She denies any complications or problems with her other pregnancies. Gynecologic history: No history of sexual transmitted diseases. Review of Systems Constitutional: Denies chills, Denies fever Eyes: denies blurred vision, denies pain Ears, nose, mouth and throat: Reports dental pain (Tooth pain, states she took some Advil a few days ago.) Cardiovascular: Denies chest pain, Denies shortness of breath Respiratory: Denies cough Gastrointestinal: Denies abdominal pain Genitourinary: Reports abnormal vaginal bleeding, Reports pelvic pain, Reports Musculoskeletal: Reports low back pain Integumentary: Denies pruritus, Denies rash Neurological: Denies numbness, Denies weakness Psychiatric: Denies anxiety, Denies depression 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, past syncope when she had influenza. History of Any Multi-Drug Resistant Organisms: None Reported Past Surgical History: No Surgical Hx Reported Past Anesthesia/Blood Transfusion Reactions: No Reported Reaction Past Psychological History: Anxiety Additional Psychological History / Comment(s): Pt states her significant other of 8 yrs recently left and that she is very stressed out at this time. She now resides with her mother and her 3 children, ages 5,3 and 1[address] She [address] not drive. Smoking Status: Never smoker Past Alcohol Use History: Occasional Past Drug Use History: None Reported - Past Family History Father History Unknown: Yes Additional Family Medical History / Comment(s): Father resides in [facility] and pt does not know his medical hx. Mother Family Medical History: No Reported History Additional Family Medical History / Comment(s): Mother is healthy Medications and Allergies Home Medications Medication Instructions Recorded Confirmed Type Ibuprofen [Advil] 400 mg PO DAILY PRN 05/28/19 05/28/19 History Allergies Allergy/AdvReac Type Severity Reaction Status Date / Time No Known Allergies Allergy Verified 05/28/19 22:30 Exam Osteopathic Statement: *. No significant issues noted on an osteopathic structural exam other than those noted in the History and Physical/Consult. Vital Signs Temp Pulse Resp BP 05/28/19 22:56 97.3 F L 92 16 135/72 Intake and Output 05/28/19 05/28/19 05/29/19 14:59 22:59 06:59 Other: Weight 54.749 kg HEENT: Within normal limits Heart: Regular rate and rhythm Lungs: Clear to auscultation bilaterally Abdomen: Cervix: Initially in triage was 1 cm/50%/-2 station with a small amount of blood noted on the glove and no gush of fluid seen. Amnisure was positive. heart tones: Category 1 Extremities: Negative Homans Results Result Diagrams: 05/28/19 23:48 05/28/19 23:48 Abnormal Lab Results - Last 24 Hours (Table) 05/28/19 05/28/19 Range/Units 22:50 23:48 RBC 3.40 L (3.80-5.40) m/uL Hgb 8.9 L (11.4-16.0) gm/dL Hct 27.4 L (34.0-46.0) % Urine Blood Small H (Negative) Assessment and Plan (1) with third trimester bleeding Current Visit: Yes Status: Acute Code(s): O46.93 - ANTEPARTUM HEMORRHAGE, UNSPECIFIED, THIRD TRIMESTER SNOMED Code(s): 139971859 (2) Third trimester Current Visit: No Status: Acute Code(s): Z33.1 - STATE, INCIDENTAL SNOMED Code(s): 36482218 Plan: Admission for possible spontaneous rupture membranes with some vaginal bleeding. Oxytocin induction of labor. Will obtain all labs and urine drug screen. Expectant management. If bleeding becomes excessive or heart tone issues, will proceed with section. We'll give ampicillin due to unknown group B streptococcus.
--- NOTE | 2019-05-29 07:25 | P.PROBDLV ---
Vaginal Delivery Note - . Vaginal Delivery Note: The patient was found to be 9 cm when I first checked her. Artificial rupture of membrane's was carried out with clear fluid noted with some dark red blood clot. She had received an epidural. She pushed a couple pushes and infant taken to a [facility]. With one further push, the infant's head delivered across the perineum followed by the anterior shoulder. Nose and mouth were bulb suctioned at the perineum. A gush of bloody fluid was noted after delivery of the body. The remainder the infant easily delivered and was placed on mother's abdomen. Cord was clamped and cut and was taken to warmer for evaluation. A viable female was noted with scores of 8 at 1 minute and 9 at 5 minutes and weight was 6 lbs. 1 oz. Placenta delivered shortly thereafter, intact, with a three-vessel cord. There was some adherent clot noted in the membranes. There was also an area along 1 edge that appeared to be a very small abruption. Uterus did contract fairly well after oxytocin was given and uterine massage was carried out. A gloved hand was placed within the uterine cavity and there was a few pieces of membrane removed. No active bleeding is noted. Inspection of the perineum revealed a small second-degree perineal laceration and a left periurethral laceration. These areas were anesthetized with 1% lidocaine and then sutured with 3-0 and 2-0 Vicryl suture in the usual multilayer fashion. Estimated blood loss is approximately 200 mL's.
[2019-05-29] MEDS ORDERED: IBUPROFEN 600 MG TAB PO PRN (07:32)
[2019-05-29] MEDS ORDERED: diphenhydrAMINE 50 MG/ML 1 ML VIAL IVP PRN ×4 (07:32→08:52)
[2019-05-29] MEDS ORDERED: ACETAMINOPHEN TAB 325 MG TAB PO PRN (07:32)
[2019-05-29] MEDS ORDERED: BENZOCAINE/MENTHOL SPRAY 1 GM/SPRAY AEROSOL TOPICAL PRN ×2 (07:32→08:52)
[2019-05-29] MEDS ORDERED: diphenhydrAMINE 25 MG CAP PO PRN ×2 (07:32→08:52)
[2019-05-29] MEDS ORDERED: LANOLIN CREAM 5 GM TUBE TOPICAL PRN ×2 (07:32→08:52)
[2019-05-29] MEDS ORDERED: HYDROCORTISONE 2.5% RECTAL CREAM 30 GM TUBE RECTAL PRN ×2 (07:32→08:52)
[2019-05-29] MEDS ORDERED: diphenhydrAMINE 50 MG CAP PO PRN ×2 (07:32→08:52)
[2019-05-29] MEDS ORDERED: WITCH HAZEL 1 EACH MED..PAD TOPICAL PRN ×2 (07:32→08:52)
[2019-05-29] MEDS ORDERED: ZOLPIDEM 5 MG TAB PO PRN ×2 (07:32→08:52)
[2019-05-29] MEDS ORDERED: SIMETHICONE 80 MG CHEWABLE PO PRN ×2 (07:32→08:52)
[2019-05-29] MEDS ORDERED: OXYTOCIN 20 UNITS/1000 ML NS 1,000 ML IV SCH ×2 (07:45→08:52)
[2019-05-29] MEDS ORDERED: SENNOSIDES-DOCUSATE SODIUM 1 EACH TAB PO SCH (08:00)
[2019-05-29] MEDS: IBUPROFEN 600 MG TAB PO PRN ×2 (09:46→16:54)
[2019-05-29] MEDS: SENNOSIDES-DOCUSATE SODIUM 1 EACH TAB PO SCH ×2 (10:18→19:49)
[2019-05-29] MEDS: ACETAMINOPHEN TAB 325 MG TAB PO PRN ×2 (12:22→21:59)
[2019-05-30] MEDS: IBUPROFEN 600 MG TAB PO PRN (03:57)
[2019-05-30 06:14] LABS: Basophils # (A) 0.1 k/uL (0-0.2); Basophils % (A) 1 %; Eosinophils # (A) 0.4 k/uL (0-0.7); Eosinophils % (A) 3 %; HGB 8.6 gm/dL (11.4-16.0); Lymphocytes # (A) 3.1 k/uL (1.0-4.8); Lymphocytes % (A) 26 %; MCH 26.6 pg (25.0-35.0); MCHC 32.9 g/dL (31.0-37.0); MCV 80.7 fL (80.0-100.0); Mean Platelet Volume 8.5; Monocytes # (A) 0.6 k/uL (0-1.0); Monocytes % (A) 5 %; Neutrophils # (A) 7.6 k/uL (1.3-7.7); Neutrophils % (A) 63 %; Platelet Count 272 k/uL (150-450); RBC 3.22 m/uL (3.80-5.40); WBC 11.9 k/uL (3.8-10.6)
--- NOTE | 2019-05-30 06:54 | P.PNOBGVD ---
Subjective - Subjective Patient reports: Reports appetite normal, Reports voiding normally, Reports pain well controlled, Reports ambulating normally : doing well Objective - Latest Vital Signs Latest vital signs: Vital Signs Temp Pulse Resp BP Pulse Ox 05/30/19 00:00 98.3 F 85 16 102/56 95 05/29/19 20:00 97.6 F 80 20 135/59 96 05/29/19 16:00 80 20 118/75 05/29/19 12:00 97.6 F 91 20 126/60 05/29/19 09:15 97.7 F 96 16 122/73 05/29/19 08:45 98.6 F 72 15 122/66 05/29/19 08:15 97.4 F L 77 16 125/62 05/29/19 08:00 97.1 F L 78 16 119/60 05/29/19 07:45 97.8 F 75 16 133/60 05/29/19 07:30 97.2 F L 85 16 118/57 05/29/19 07:15 98.1 F 92 16 120/57 Intake and Output 05/29/19 05/29/19 05/30/19 14:59 22:59 06:59 Other: Voiding Method Toilet # Voids 0 1 2 - Exam Lungs: bilateral: normal Chest: Normal S1, Normal S2 Extremities: Present: normal Abdomen: Present: normal appearance, soft Uterus: Present: normal, firm - Labs Labs: Abnormal Lab Results - Last 24 Hours (Table) 05/30/19 Range/Units 05:48 WBC 11.9 H (3.8-10.6) k/uL RBC 3.22 L (3.80-5.40) m/uL Hgb 8.6 L (11.4-16.0) gm/dL Hct 26.0 L (34.0-46.0) % Assessment and Plan Assessment: day #1. Patient is resting without complaints. Vital signs are stable she is afebrile. Uterus is firm nontender and she is having normal lochia. My impression this is a normal course. Plan is to continue routine care discharge home tomorrow (1) with third trimester bleeding Current Visit: Yes Status: Acute Code(s): O46.93 - ANTEPARTUM HEMORRHAGE, UNSPECIFIED, THIRD TRIMESTER SNOMED Code(s): 320497437
[2019-05-30] MEDS: IRON AG/C/B12/CA/SUC.ACID/STOM 1 EACH TAB PO SCH (09:18)
[2019-05-30] MEDS: SENNOSIDES-DOCUSATE SODIUM 1 EACH TAB PO SCH (09:19)
[2019-05-31] MEDS: SENNOSIDES-DOCUSATE SODIUM 1 EACH TAB PO SCH ×2 (00:55→07:45)
[2019-05-31] MEDS: IBUPROFEN 600 MG TAB PO PRN ×2 (02:31→11:38)
--- NOTE | 2019-05-31 07:02 | P.PNOBGVD ---
Subjective - Subjective Patient reports: Reports appetite normal, Reports voiding normally, Reports pain well controlled, Reports ambulating normally : doing well Objective - Latest Vital Signs Latest vital signs: Vital Signs Temp Pulse Resp BP Pulse Ox 05/31/19 00:00 97.8 F 67 20 105/51 98 05/30/19 16:00 98.4 F 76 16 107/56 05/30/19 08:00 98.6 F 80 16 127/61 Intake and Output 05/30/19 05/31/19 05/31/19 22:59 06:59 14:59 Other: # Voids 1 2 - Exam Lungs: bilateral: normal Chest: Normal S1, Normal S2 Extremities: Present: normal Abdomen: Present: normal appearance, soft Uterus: Present: normal, firm Assessment and Plan Assessment: day #1. Patient is resting without complaints. Vital signs are stable she's afebrile. Uterus is firm nontender she's having normal lochia. My impression is a normal course. Patient also appears to have chronic anemia however she is asymptomatic. Plan is to discharge home and follow-up with Dr. Rocha in approximately 6 weeks. (1) with third trimester bleeding Current Visit: Yes Status: Acute Code(s): O46.93 - ANTEPARTUM HEMORRHAGE, UNSPECIFIED, THIRD TRIMESTER SNOMED Code(s): 703038436
--- NOTE | 2019-05-31 07:09 | P.DS ---
Providers Date of admission: 05/29/19 00:33 Expected date of discharge: 05/31/19 Attending physician: Rachel Rocha Primary care physician: Stated None - Discharge Diagnosis(es) (1) with third trimester bleeding Current Visit: Yes Status: Acute Hospital Course: Please see dictated H&P per Dr. Rocha on this patient's admission. In brief summary this is a 24-year-old 4 para 3 female with limited or no care who presented to labor and delivery with bleeding and thought to be in active labor. Patient went on to have a vaginal delivery viable female infant., Please see dictated delivery note. Patient also was noted to have chronic anemia started on some iron therapy. Patient on day #2 felt to be stable for discharge home follow up with Dr. Rocha in 6 weeks. Procedures: Normal spontaneous vaginal delivery Patient Condition at Discharge: Good Plan - Discharge Summary New Discharge Prescriptions: New Ibuprofen [Motrin] 600 mg PO Q6HR PRN #30 tab PRN Reason: Mild Pain Or Fever >= 100.5 Discontinued Ibuprofen [Advil] 400 mg PO DAILY PRN PRN Reason: Mild Pain Discharge Medication List Ibuprofen [Motrin] 600 mg PO Q6HR PRN #30 tab 05/31/19 [Rx] Follow up Appointment(s)/Referral(s): Rachel Rocha DO [Doctor of Osteopathic Medicine] - 07/10/19 11:30 am Patient Instructions/Handouts: Vaginal Delivery (DC), Iron Deficiency Anemia (DC) Activity/Diet/Wound Care/Special Instructions: No intercourse or anything per vagina for 6 weeks. Please call if any fever, chills, excessive vaginal bleeding, and/or abdominal pain. Please buy some [id number] iron tablets for your chronic anemia. Discharge Disposition: HOME SELF-CARE
[2019-05-31 08:35] VITALS: BP 95/57; PULSE 73; RESP 16; TEMP 98
[2019-05-31] MEDS: IRON AG/C/B12/CA/SUC.ACID/STOM 1 EACH TAB PO SCH (10:08)
== END 2019-05-31 12:30 | disposition home or self-care (01) | DRG 807 ==
LOC: FBPOP 22:18 → 4FBP 05-29 00:33
PROVIDERS: ADMIT Obstetrics & Gynecology; ATTEND Obstetrics & Gynecology
PROC: 10E0XZZ Delivery of Products of Conception, External Approach (ICD-10-PCS; principal; 2019-05-29)
PROC: 0KQM0ZZ Repair Perineum Muscle, Open Approach (ICD-10-PCS; 2019-05-29)
PROC: 10907ZC Drainage of Amniotic Fluid, Therapeutic from Products of Conception, Via Natural or Artificial Opening (ICD-10-PCS; 2019-05-29)
PROC: 0UQMXZZ Repair Vulva, External Approach (ICD-10-PCS; 2019-05-29)
DX: O67.8 Other intrapartum hemorrhage (principal); Z37.0 Single live birth; Z3A.35 35 weeks gestation of pregnancy; O99.02 Anemia complicating childbirth; O70.1 Second degree perineal laceration during delivery; O71.82 Other specified trauma to perineum and vulva; D64.9 Anemia, unspecified; F41.9 Anxiety disorder, unspecified; O99.344 Other mental disorders complicating childbirth; K08.89 Other specified disorders of teeth and supporting structures; I45.6 Pre-excitation syndrome; O09.33 Supervision of pregnancy with insufficient antenatal care, third trimester
CPT/HCPCS: 59025; 76805; 76817; 80306; 81001; 82947; 84112; 85025; 86762; 86780; 86850; 86900; 86901; 87340; 88307; 99213

== ENCOUNTER 2019-07-11 16:38 | Emergency (ER) | payer OTHER ==
[2019-07-11 16:53] VITALS: BP 117/73; PULSE 96; RESP 18; TEMP 98.7
[2019-07-11] MEDS ORDERED: LIDOCAINE 1% INJ 10MG/ML (20 ML MDV) SQ ONE (16:57)
[2019-07-11] MEDS ORDERED: ACETAMINOPHEN TAB 325 MG TAB PO STA (17:35)
--- NOTE | 2019-07-11 17:39 | ED ---
General Adult HPI - General Chief complaint: Skin/Abscess/Foreign Body Stated complaint: lump lt armpit Time Seen by Provider: 07/11/19 16:56 Source: patient, RN notes reviewed Mode of arrival: ambulatory Limitations: no limitations - History of Present Illness Initial comments: 24-year-old female without any significant past medical history presents to the emergency department for abscess to the left armpit. This has been ongoing for about 4-5 days. Patient states she shaved and then 2 days later started to get a bump in her armpit. States it is very painful. Denies fevers or chills. Denies any spreading or streaking redness. Denies any chance of stating that she had a baby 1 month ago. She is not breast-feeding.Patient has no other complaints at this time including shortness of breath, chest pain, abdominal pain, nausea or vomiting, headache, or visual changes. - Related Data Previous Rx's Medication Instructions Recorded Cephalexin [Keflex] 500 mg PO Q12HR #20 cap 07/11/19 Sulfamethox-Tmp 800-160Mg [Bactrim 1 tab PO Q12HR #20 tab 07/11/19 DS 800-160 mg] Allergies Allergy/AdvReac Type Severity Reaction Status Date / Time No Known Allergies Allergy Verified 07/11/19 17:05 Review of Systems ROS Statement: Those systems with pertinent positive or pertinent negative responses have been documented in the HPI. ROS Other: All systems not noted in ROS Statement are negative. 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 History of Any Multi-Drug Resistant Organisms: None Reported Past Surgical History: No Surgical Hx Reported Past Anesthesia/Blood Transfusion Reactions: No Reported Reaction Past Psychological History: Anxiety Smoking Status: Never smoker Past Alcohol Use History: Occasional Past Drug Use History: None Reported - Past Family History Father History Unknown: Yes Additional Family Medical History / Comment(s): Father resides in [facility] and pt does not know his medical hx. Mother Family Medical History: No Reported History Additional Family Medical History / Comment(s): Mother is healthy General Exam Limitations: no limitations General appearance: alert, in no apparent distress Head exam: Present: atraumatic, normocephalic, normal inspection Eye exam: Present: normal appearance, PERRL, EOMI. Absent: scleral icterus, conjunctival injection, periorbital swelling ENT exam: Present: normal exam, mucous membranes moist Neck exam: Present: normal inspection. Absent: tenderness, meningismus, lymphadenopathy Respiratory exam: Present: normal lung sounds bilaterally. Absent: respiratory distress, wheezes, rales, rhonchi, stridor Cardiovascular Exam: Present: regular rate, normal rhythm, normal heart sounds. Absent: systolic murmur, diastolic murmur, rubs, gallop, clicks Extremities exam: Present: other (H and is a 1 cm x 1 cm abscess noted in the left armpit. This is tender to palpation. There is no significant overlying erythema. ) Course Vital Signs 07/11/19 16:51 Temperature 98.7 F Pulse Rate 96 Respiratory 18 Rate Blood Pressure 117/73 O2 Sat by Pulse 98 Oximetry Medical Decision Making - Medical Decision Making Abscess was incised and drained. Purulent material expelled. There is no spreading redness or streaking redness. No fever. Vitals are stable. Patient is well-appearing, nontoxic. No immunocompromising states. Patient will be discharged home with antibiotics. Recommended warm compresses and following up with primary care or dermatology. Recommended returning here if she has any worsening symptoms. Disposition Clinical Impression: Abscess Disposition: HOME SELF-CARE Condition: Good Instructions (If sedation given, give patient instructions): Abscess Incision and Drainage (ED), Abscess (ED) Additional Instructions: Please apply warm compresses to the area to keep abscess draining. Take antibiotics as directed. Follow-up with primary care or dermatology in 1-2 days. Return to the emergency department if you have any worsening symptoms, abscess is not resolving, or youre getting fevers. Prescriptions: Sulfamethox-Tmp 800-160Mg [Bactrim DS 800-160 mg] 1 tab PO Q12HR #20 tab Cephalexin [Keflex] 500 mg PO Q12HR #20 cap Is patient prescribed a controlled substance at d/c from ED?: No Referrals: Jodie Parham MD [REFERRING] - 1-2 days Paulino Cardoza MD [STAFF PHYSICIAN] - 1-2 days Time of Disposition: 17:36
== END 2019-07-11 18:06 | disposition home or self-care (01) ==
LOC: EC 16:38
DX: L02.412 Cutaneous abscess of left axilla (principal)
CPT/HCPCS: 99283; 10060; J2001

== ENCOUNTER 2019-12-02 19:52 | Emergency (ER) | payer OTHER ==
[2019-12-02 20:00] VITALS: BP 129/76; PULSE 99; RESP 18; TEMP 98.6
[2019-12-02] MEDS ORDERED: LIDOCAINE 1%-EPI 1:100,000 20 ML VIAL SQ STA (20:10)
[2019-12-02] MEDS ORDERED: SULFAMETH-TMP DS STARTER PACK 2 TAB BTL PO STA (20:26)
--- NOTE | 2019-12-02 20:31 | ED ---
Skin/Abscess/FB HPI - General Chief complaint: Skin/Abscess/Foreign Body Stated complaint: L Axilla Abcess Time Seen by Provider: 12/02/19 20:01 Source: patient Mode of arrival: ambulatory Limitations: no limitations - History of Present Illness Initial comments: Patient is a 24-year-old female presenting to emergency Department with a chief complaint of an abscess. Patient states the abscess form of the last 3 days in the left axilla. States she's had an abscesses previously in the same region. States it had to be drained and she was on antibiotics afterwards. Denies any drainage from the reason. States warm compresses improves the pain. States she has pain whenever she is moving her left upper extremity. Denies any fevers or chills nausea vomiting. Denies taking medication to alleviate the symptoms. - Related Data Previous Rx's Medication Instructions Recorded Cephalexin [Keflex] 500 mg PO Q12HR #20 cap 07/11/19 Sulfamethox-Tmp 800-160Mg [Bactrim 1 tab PO Q12HR #20 tab 07/11/19 DS 800-160 mg] Sulfamethox-Tmp 800-160Mg [Bactrim 1 each PO Q12HR #20 tab 12/02/19 Ds] Allergies Allergy/AdvReac Type Severity Reaction Status Date / Time No Known Allergies Allergy Verified 07/11/19 17:05 Review of Systems ROS Statement: Those systems with pertinent positive or pertinent negative responses have been documented in the HPI. ROS Other: All systems not noted in ROS Statement are negative. 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 History of Any Multi-Drug Resistant Organisms: None Reported Past Surgical History: No Surgical Hx Reported Past Anesthesia/Blood Transfusion Reactions: No Reported Reaction Past Psychological History: Anxiety Smoking Status: Never smoker Past Alcohol Use History: Occasional Past Drug Use History: None Reported - Past Family History Father History Unknown: Yes Additional Family Medical History / Comment(s): Father resides in [facility] and pt does not know his medical hx. Mother Family Medical History: No Reported History Additional Family Medical History / Comment(s): Mother is healthy General Exam Limitations: no limitations General appearance: alert, in no apparent distress Head exam: Present: atraumatic, normocephalic, normal inspection Eye exam: Present: normal appearance Pupils: Present: normal accommodation ENT exam: Present: normal exam Neck exam: Present: normal inspection, full ROM Respiratory exam: Present: normal lung sounds bilaterally Cardiovascular Exam: Present: regular rate, normal rhythm, normal heart sounds Extremities exam: Present: full ROM, tenderness (Tenderness at the site of abscess.). Absent: normal inspection (Abscess in the left axilla measuring approximately 3 cm x 1.5 cm. No discharge. Fluctuance noted. No induration.) Back exam: Present: normal inspection, full ROM Neurological exam: Present: alert, oriented X3 Psychiatric exam: Present: normal affect, normal mood Skin exam: Present: warm, dry, intact, normal color Course Vital Signs 12/02/19 19:55 Temperature 98.6 F Pulse Rate 99 Respiratory 18 Rate Blood Pressure 129/76 O2 Sat by Pulse 100 Oximetry Procedures - Incision & Drainage Consent Obtained: verbal consent Indication: Abscess Site: other (Left axilla) Size (cm): 3 Anesthetic Used: lidocaine 1%, with epi Amount (mLs): 3 I&D Cleaning Method: Alcohol Wipe Sterile Field Used?: No Scalpel Used: #11 Needle Aspiration Performed?: No Irrigation Performed?: No I&D Drainage Obtained: Pus, Blood Culture Obtained?: Yes Complications: pain, bleeding Patient Tolerated Procedure: well, no complications Medical Decision Making - Medical Decision Making Patient is 24-year-old female presenting to emergency with chief complaint an abscess. Abscess in the left axilla. The fluctuance noted. I was able to drain the abscess. Wound culture obtained. Patient started on Bactrim. Return parameters discussed. Case discussed with physician. Disposition Clinical Impression: Abscess of axilla, left Disposition: HOME SELF-CARE Condition: Stable Instructions (If sedation given, give patient instructions): Abscess (ED), Abscess Incision and Drainage (DC) Additional Instructions: Take prescribed medication as directed. Follow with primary care. Return to emergency department if symptoms worsen. Avoid using deodorants on the left armpit. Avoid shaving in the region as well. Prescriptions: Sulfamethox-Tmp 800-160Mg [Bactrim Ds] 1 each PO Q12HR #20 tab Is patient prescribed a controlled substance at d/c from ED?: No Referrals: None,Stated [Primary Care Provider] - 1-2 days Time of Disposition: 20:31
== END 2019-12-02 20:48 | disposition home or self-care (01) ==
LOC: EC 19:52
DX: L02.412 Cutaneous abscess of left axilla (principal)
CPT/HCPCS: 10060; 87070; 87077; 87186; 87205; 99283

== ENCOUNTER 2020-09-07 17:34 | Emergency (ER) | payer OTHER ==
[2020-09-07 17:51] VITALS: PULSE 80
[2020-09-07 18:18] LABS: Basophils # (A) 0.1 k/uL (0-0.2); Basophils % (A) 1 %; Eosinophils # (A) 0.2 k/uL (0-0.7); Eosinophils % (A) 3 %; HCT 38.4 % (34.0-46.0); HGB 12.6 gm/dL (11.4-16.0); Lymphocytes # (A) 2.5 k/uL (1.0-4.8); Lymphocytes % (A) 40 %; MCH 28.2 pg (25.0-35.0); MCHC 32.8 g/dL (31.0-37.0); MCV 85.9 fL (80.0-100.0); Mean Platelet Volume 8.2; Monocytes # (A) 0.3 k/uL (0-1.0); Monocytes % (A) 4 %; Neutrophils # (A) 3.2 k/uL (1.3-7.7); Neutrophils % (A) 51 %; Platelet Count 295 k/uL (150-450); RBC 4.47 m/uL (3.80-5.40); WBC 6.3 k/uL (3.8-10.6)
[2020-09-07 18:20] LABS: Appearance,Urine Clear (Clear); Bilirubin,Urine Negative (Negative); Blood,Urine Moderate (Negative); Color,Urine Yellow; Glucose,Urine (UA) Negative (Negative); Ketones,Urine Negative (Negative); Leukocyte Esterase,Urine Negative (Negative); Mucus,Urine Rare /hpf; Nitrite,Urine Negative (Negative); Protein,Urine Negative (Negative); RBC,Urine 65 /hpf (0-5); Specific Gravity,Urine 1.018 (1.001-1.035); Squamous Epithelial Cell,Urine <1 /hpf (0-4); Urobilinogen,Urine <2.0 mg/dL (<2.0); WBC,Urine 1 /hpf (0-5)
--- NOTE | 2020-09-07 18:24 | ED ---
General Adult HPI - General Chief complaint: Vaginal Bleeding Stated complaint: vaginal bleeding Time Seen by Provider: 09/07/20 17:49 Source: patient, RN notes reviewed Mode of arrival: ambulatory Limitations: no limitations - History of Present Illness Initial comments: 25-year-old female presents to the emergency room for a chief complaint of vaginal bleeding times one month. Patient states she has had heavier vaginal bleeding than normal. States it has lasted consistently for one month. She states she does take oral contraceptives and has not taken a test. Patient states that she called her ACCOUNT ENGINEER and has an appointment in 2 days but did not want to wait. States she wants it taken care of before the holidays. Patient denies any lightheadedness shortness of breath or chest pain.Patient has no other complaints at this time including shortness of breath, chest pain, abdominal pain, nausea or vomiting, headache, or visual changes. - Related Data Home Medications Medication Instructions Recorded Confirmed Control Unknown 1 tab PO DAILY 09/07/20 09/07/20 Allergies Allergy/AdvReac Type Severity Reaction Status Date / Time No Known Allergies Allergy Verified 09/07/20 18:29 Review of Systems ROS Statement: Those systems with pertinent positive or pertinent negative responses have been documented in the HPI. ROS Other: All systems not noted in ROS Statement are negative. 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 Mother Family Medical History: No Reported History Additional Family Medical History / Comment(s): Mother is healthy General Exam Limitations: no limitations General appearance: alert, in no apparent distress Head exam: Present: atraumatic, normocephalic, normal inspection Eye exam: Present: normal appearance ENT exam: Present: normal exam, mucous membranes moist Neck exam: Present: normal inspection, full ROM. Absent: tenderness, meningismus, lymphadenopathy Respiratory exam: Present: normal lung sounds bilaterally. Absent: respiratory distress, wheezes, rales, rhonchi, stridor Cardiovascular Exam: Present: regular rate, normal rhythm, normal heart sounds. Absent: systolic murmur, diastolic murmur, rubs, gallop, clicks GI/Abdominal exam: Present: soft, normal bowel sounds. Absent: distended, tenderness, guarding, rebound, rigid External exam: Present: normal external exam. Absent: erythema, swelling, l esions, lacerations, ecchymosis Speculum exam: Present: vaginal bleeding (minimal). Absent: normal speculum exam, erythema, vaginal discharge, cervical discharge, foreign body, tissue, laceration By manual exam: Present: normal by manual exam. Absent: cervical motion tenderness, adnexal tenderness, adnexal mass, uterine enlargement, uterine tende rness Neurological exam: Present: alert Course Vital Signs 09/07/20 09/07/20 17:36 18:47 Temperature 98.9 F 99.6 F Pulse Rate 80 80 Respiratory 20 18 Rate Blood Pressure 126/83 128/83 O2 Sat by Pulse 100 100 Oximetry Medical Decision Making - Medical Decision Making Vitals are stable. Patient presents for light vaginal bleeding for 1 month. Physical exam otherwise unremarkable aside from minimal bleeding on pelvic exam. CBC CMP unremarkable. Urinalysis does show 65 red blood cells which is likely secondary to vaginal bleeding. Trichomonas negative, gonorrhea chlamydia pending however patient does not have a high suspicion for this. Ultrasound shows no evidence of ovarian torsion, solid adnexal mass, or free fluid. At this time patient is stable and can be discharged home to follow up with primary care. If she develops any worsening symptoms it is lightheadedness or worsening bleeding she will return to the emergency room. Patient has an appointment with her ACCOUNT ENGINEER Dr. Noland in 2 days that she will attend. - Lab Data Result diagrams: 09/07/20 18:06 09/07/20 18:06 Lab Results 09/07/20 09/07/20 09/07/20 Range/Units 18:06 18:06 18:06 WBC 6.3 (3.8-10.6) k/uL RBC 4.47 (3.80-5.40) m/uL Hgb 12.6 (11.4-16.0) gm/dL Hct 38.4 (34.0-46.0) % MCV 85.9 (80.0-100.0) fL MCH 28.2 (25.0-35.0) pg MCHC 32.8 (31.0-37.0) g/dL RDW 13.0 (11.5-15.5) % Plt Count 295 (150-450) k/uL MPV 8.2 Neutrophils % 51 % Lymphocytes % 40 % Monocytes % 4 % Eosinophils % 3 % Basophils % 1 % Neutrophils # 3.2 (1.3-7.7) k/uL Lymphocytes # 2.5 (1.0-4.8) k/uL Monocytes # 0.3 (0-1.0) k/uL Eosinophils # 0.2 (0-0.7) k/uL Basophils # 0.1 (0-0.2) k/uL Sodium (137-145) mmol/L Potassium (3.5-5.1) mmol/L Chloride (98-107) mmol/L Carbon Dioxide (22-30) mmol/L Anion Gap mmol/L BUN (7-17) mg/dL Creatinine (0.52-1.04) mg/dL Est GFR (CKD-EPI)AfAm (>60 ml/min/1.73 sqM) Est GFR (CKD-EPI)NonAf (>60 ml/min/1.73 sqM) Glucose (74-99) mg/dL Calcium (8.4-10.2) mg/dL Total Bilirubin (0.2-1.3) mg/dL AST (14-36) U/L ALT (4-34) U/L Alkaline Phosphatase (38-126) U/L Total Protein (6.3-8.2) g/dL Albumin (3.5-5.0) g/dL Urine Color Yellow Urine Appearance Clear (Clear) Urine pH 5.0 (5.0-8.0) Ur Specific [place] 1.018 (1.001-1.035) Urine Protein Negative (Negative) Urine Glucose (UA) Negative (Negative) Urine Ketones Negative (Negative) Urine Blood Moderate H (Negative) Urine Nitrite Negative (Negative) Urine Bilirubin Negative (Negative) Urine Urobilinogen <2.0 (<2.0) mg/dL Ur Leukocyte Esterase Negative (Negative) Urine RBC 65 H (0-5) /hpf Urine WBC 1 (0-5) /hpf Ur Squamous Epith Cells <1 (0-4) /hpf Urine Mucus Rare H (None) /hpf Urine HCG, Qual Not Detected (Not Detectd) Trichomonas Ag (Rapid) (Negative) 09/07/20 09/07/20 Range/Units 18:06 18:24 WBC (3.8-10.6) k/uL RBC (3.80-5.40) m/uL Hgb (11.4-16.0) gm/dL Hct (34.0-46.0) % MCV (80.0-100.0) fL MCH (25.0-35.0) pg MCHC (31.0-37.0) g/dL RDW (11.5-15.5) % Plt Count (150-450) k/uL MPV Neutrophils % % Lymphocytes % % Monocytes % % Eosinophils % % Basophils % % Neutrophils # (1.3-7.7) k/uL Lymphocytes # (1.0-4.8) k/uL Monocytes # (0-1.0) k/uL Eosinophils # (0-0.7) k/uL Basophils # (0-0.2) k/uL Sodium 139 (137-145) mmol/L Potassium 4.2 (3.5-5.1) mmol/L Chloride 106 (98-107) mmol/L Carbon Dioxide 27 (22-30) mmol/L Anion Gap 6 mmol/L BUN 10 (7-17) mg/dL Creatinine 0.55 (0.52-1.04) mg/dL Est GFR (CKD-EPI)AfAm >90 (>60 ml/min/1.73 sqM) Est GFR (CKD-EPI)NonAf >90 (>60 ml/min/1.73 sqM) Glucose 96 (74-99) mg/dL Calcium 9.7 (8.4-10.2) mg/dL Total Bilirubin 0.4 (0.2-1.3) mg/dL AST 79 H (14-36) U/L ALT 84 H (4-34) U/L Alkaline Phosphatase 58 (38-126) U/L Total Protein 7.7 (6.3-8.2) g/dL Albumin 4.5 (3.5-5.0) g/dL Urine Color Urine Appearance (Clear) Urine pH (5.0-8.0) Ur Specific [place] (1.001-1.035) Urine Protein (Negative) Urine Glucose (UA) (Negative) Urine Ketones (Negative) Urine Blood (Negative) Urine Nitrite (Negative) Urine Bilirubin (Negative) Urine Urobilinogen (<2.0) mg/dL Ur Leukocyte Esterase (Negative) Urine RBC (0-5) /hpf Urine WBC (0-5) /hpf Ur Squamous Epith Cells (0-4) /hpf Urine Mucus (None) /hpf Urine HCG, Qual (Not Detectd) Trichomonas Ag (Rapid) Negative (Negative) Disposition Clinical Impression: Dysfunctional uterine bleeding Disposition: HOME SELF-CARE Condition: Good Instructions (If sedation given, give patient instructions): Dysmenorrhea (ED) Additional Instructions: Please follow-up with your doctor in one to 2 days. If you have any worsening symptoms such as worsening bleeding or lightheadedness return to the emergency room. Is patient prescribed a controlled substance at d/c from ED?: No Referrals: Edward Velasquez [STAFF PHYSICIAN] - 1-2 days Time of Disposition: 20:34
[2020-09-07 18:27] LABS: ALT 84 U/L (4-34); AST 79 U/L (14-36); African American GFR (CKD) >90 (>60 ml/min/1.73 sqM); Albumin 4.5 g/dL (3.5-5.0); Alkaline Phosphatase 58 U/L (38-126); Anion Gap 6 mmol/L; Blood Urea Nitrogen 10 mg/dL (7-17); Calcium 9.7 mg/dL (8.4-10.2); Carbon Dioxide 27 mmol/L (22-30); Chloride 106 mmol/L (98-107); Glucose 96 mg/dL (74-99); Non-African American GFR(CKD) >90 (>60 ml/min/1.73 sqM); Potassium 4.2 mmol/L (3.5-5.1); Sodium 139 mmol/L (137-145); Total Bilirubin 0.4 mg/dL (0.2-1.3); Total Protein 7.7 g/dL (6.3-8.2)
[2020-09-07 18:49] VITALS: BP 128/83; RESP 18; TEMP 99.6
--- NOTE | 2020-09-07 20:25 | US ---
EXAMINATION TYPE: US transvaginal DATE OF EXAM: 09/07/2020 COMPARISON: US CLINICAL HISTORY: pain, bleeding. Irregular bleeding x 1 month. . TECHNIQUE: Transvaginal (TV). Date of LMP: 07/28/2020 EXAM MEASUREMENTS: Uterus: 7.3 x 4.2 x 3.6 cm Endometrial Stripe: 0.65 cm Right Ovary: 2.7 x 1.6 x 1.4 cm Left Ovary: 2.9 x 1.8 x 1.7 cm 1. Uterus: Anteverted 2. Endometrium: Measures 0.65 cm. 3. Right Ovary: Anechoic areas seen. Largest measures 0.8 x 0.6 x 0.5 cm. 4. Left Ovary: Anechoic areas seen. Largest measures 0.7 x 0.7 x 0.6 cm. Spectral, color and waveform doppler imaging shows arterial and venous flow within the ovaries. 5. Bilateral Adnexa: Prominent vessels left adnexa 0.6 cm. 6. Posterior cul-de-sac: Appears wnl Bowel peristalsis seen throughout adnexa. IMPRESSION: No evidence of ovarian torsion. No solid adnexal mass. No free fluid.
== END 2020-09-07 21:12 | disposition home or self-care (01) ==
LOC: EC 17:34
DX: N93.8 Other specified abnormal uterine and vaginal bleeding (principal); F17.290 Nicotine dependence, other tobacco product, uncomplicated; Z79.3 Long term (current) use of hormonal contraceptives; Z86.14 Personal history of Methicillin resistant Staphylococcus aureus infection
CPT/HCPCS: 36415; 76830; 80053; 81001; 81025; 85025; 87070; 87491; 87591; 87808; 93975; 99284

== ENCOUNTER 2021-01-17 14:56 | Emergency (ER) | payer OTHER ==
[2021-01-17] MEDS ORDERED: SODIUM CHLORIDE 0.9% 1,000 ML IV STA (15:09)
[2021-01-17] MEDS ORDERED: ONDANSETRON 4 MG/2 ML VIAL IVP STA (15:09)
[2021-01-17 15:34] LABS: Appearance,Urine Clear (Clear); Bilirubin,Urine Negative (Negative); Blood,Urine Negative (Negative); Color,Urine Yellow; Glucose,Urine (UA) Negative (Negative); Ketones,Urine 3+ (Negative); Leukocyte Esterase,Urine Negative (Negative); Nitrite,Urine Negative (Negative); Protein,Urine Trace (Negative); Specific Gravity,Urine 1.024 (1.001-1.035); Urobilinogen,Urine <2.0 mg/dL (<2.0)
--- NOTE | 2021-01-17 15:39 | ED ---
General Adult HPI - General Chief complaint: Abdominal Pain Stated complaint: Nausea,Vomitting Time Seen by Provider: 01/17/21 15:02 Source: patient, RN notes reviewed, old records reviewed Mode of arrival: ambulatory Limitations: no limitations - History of Present Illness Initial comments: 25 -year-old female presenting for evaluation of fever, vomiting, lower abdominal pain. Symptoms have been present for the past 24 hours. She has central and bilateral lower abdominal pain and suprapubic pain. She denies dysuria or urinary frequency. She denies any vaginal discharge or vaginal bleeding. Uncertain if she is currently . She has had multiple episodes of vomiting. No upper abdominal pain. No previous abdominal surgery. - Related Data Home Medications Medication Instructions Recorded Confirmed No Known Home Medications 01/17/21 01/17/21 Allergies Allergy/AdvReac Type Severity Reaction Status Date / Time No Known Allergies Allergy Verified 01/17/21 15:52 Review of Systems ROS Statement: Those systems with pertinent positive or pertinent negative responses have been documented in the HPI. ROS Other: All systems not noted in ROS Statement are negative. 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 Mother Family Medical History: No Reported History Additional Family Medical History / Comment(s): Mother is healthy General Exam Limitations: no limitations General appearance: alert, in no apparent distress Head exam: Present: atraumatic, normocephalic Eye exam: Present: normal appearance, PERRL ENT exam: Present: normal oropharynx, mucous membranes dry Neck exam: Present: normal inspection. Absent: tenderness, meningismus Respiratory exam: Present: normal lung sounds bilaterally. Absent: respiratory distress, wheezes, rales Cardiovascular Exam: Present: regular rate, normal rhythm GI/Abdominal exam: Present: soft, tenderness (Lower abdominal pain and tenderne ss). Absent: distended, guarding, rebound Extremities exam: Present: normal inspection, normal capillary refill. Absent: pedal edema Neurological exam: Present: alert, oriented X3, CN II-XII intact. Absent: motor sensory deficit Psychiatric exam: Present: normal affect, normal mood Skin exam: Present: warm, dry, intact. Absent: cyanosis, diaphoretic Course Vital Signs 01/17/21 14:57 Temperature 100.3 F H Pulse Rate 91 Respiratory 20 Rate Blood Pressure 116/71 O2 Sat by Pulse 100 Oximetry Medical Decision Making - Medical Decision Making 25-year-old female presenting with vomiting, lower abdominal pain. No vaginal bleeding or vaginal discharge. No dysuria. On examination the patient does have some minimal tenderness. No rebound or guarding. She is hemodynamically stable. She does appear dehydrated likely secondary to vomiting. Her workup reveals a normal CBC, normal CMP, she has 3+ ketones in her urine suggestive of dehydration and volume loss. Her urine test is positive. Blood type is A+. She has a ultrasound showing a yolk sac within the uterus. She will require repeat beta hCG. She does have good OB follow-up as this is her fifth and she has 4 living children. She will take a vitamin. She's given strict return parameters. - Lab Data Result diagrams: 01/17/21 15:38 01/17/21 15:38 Lab Results 01/17/21 01/17/21 01/17/21 Range/Units 15:21 15:22 15:38 WBC 3.8 (3.8-10.6) k/uL RBC 4.03 (3.80-5.40) m/uL Hgb 12.1 (11.4-16.0) gm/dL Hct 34.6 (34.0-46.0) % MCV 85.9 (80.0-100.0) fL MCH 29.9 (25.0-35.0) pg MCHC 34.9 (31.0-37.0) g/dL RDW 13.6 (11.5-15.5) % Plt Count 198 (150-450) k/uL MPV 8.3 Neutrophils % 59 % Lymphocytes % 29 % Monocytes % 9 % Eosinophils % 1 % Basophils % 0 % Neutrophils # 2.2 (1.3-7.7) k/uL Lymphocytes # 1.1 (1.0-4.8) k/uL Monocytes # 0.3 (0-1.0) k/uL Eosinophils # 0.0 (0-0.7) k/uL Basophils # 0.0 (0-0.2) k/uL Sodium (137-145) mmol/L Potassium (3.5-5.1) mmol/L Chloride (98-107) mmol/L Carbon Dioxide (22-30) mmol/L Anion Gap mmol/L BUN (7-17) mg/dL Creatinine (0.52-1.04) mg/dL Est GFR (CKD-EPI)AfAm (>60 ml/min/1.73 sqM) Est GFR (CKD-EPI)NonAf (>60 ml/min/1.73 sqM) Glucose (74-99) mg/dL Plasma Lactic Acid Rosas (0.7-2.0) mmol/L Calcium (8.4-10.2) mg/dL Total Bilirubin (0.2-1.3) mg/dL AST (14-36) U/L ALT (4-34) U/L Alkaline Phosphatase (38-126) U/L Total Protein (6.3-8.2) g/dL Albumin (3.5-5.0) g/dL Amylase (30-110) U/L Lipase (23-300) U/L Urine Color Yellow Urine Appearance Clear (Clear) Urine pH 6.0 (5.0-8.0) Ur Specific Girard 1.024 (1.001-1.035) Urine Protein Trace H (Negative) Urine Glucose (UA) Negative (Negative) Urine Ketones 3+ H (Negative) Urine Blood Negative (Negative) Urine Nitrite Negative (Negative) Urine Bilirubin Negative (Negative) Urine Urobilinogen <2.0 (<2.0) mg/dL Ur Leukocyte Esterase Negative (Negative) Urine HCG, Qual Detected (Not Detectd) Blood Type Blood Type Recheck Bld Type Recheck Status 01/17/21 01/17/21 01/17/21 Range/Units 15:38 15:38 16:45 WBC (3.8-10.6) k/uL RBC (3.80-5.40) m/uL Hgb (11.4-16.0) gm/dL Hct (34.0-46.0) % MCV (80.0-100.0) fL MCH (25.0-35.0) pg MCHC (31.0-37.0) g/dL RDW (11.5-15.5) % Plt Count (150-450) k/uL MPV Neutrophils % % Lymphocytes % % Monocytes % % Eosinophils % % Basophils % % Neutrophils # (1.3-7.7) k/uL Lymphocytes # (1.0-4.8) k/uL Monocytes # (0-1.0) k/uL Eosinophils # (0-0.7) k/uL Basophils # (0-0.2) k/uL Sodium 138 (137-145) mmol/L Potassium 3.8 (3.5-5.1) mmol/L Chloride 106 (98-107) mmol/L Carbon Dioxide 22 (22-30) mmol/L Anion Gap 10 mmol/L BUN 6 L (7-17) mg/dL Creatinine 0.51 L (0.52-1.04) mg/dL Est GFR (CKD-EPI)AfAm >90 (>60 ml/min/1.73 sqM) Est GFR (CKD-EPI)NonAf >90 (>60 ml/min/1.73 sqM) Glucose 85 (74-99) mg/dL Plasma Lactic Acid Rosas 0.9 (0.7-2.0) mmol/L Calcium 9.4 (8.4-10.2) mg/dL Total Bilirubin 0.6 (0.2-1.3) mg/dL AST 25 (14-36) U/L ALT 16 (4-34) U/L Alkaline Phosphatase 49 (38-126) U/L Total Protein 6.9 (6.3-8.2) g/dL Albumin 4.2 (3.5-5.0) g/dL Amylase 104 (30-110) U/L Lipase 60 (23-300) U/L Urine Color Urine Appearance (Clear) Urine pH (5.0-8.0) Ur Specific Girard (1.001-1.035) Urine Protein (Negative) Urine Glucose (UA) (Negative) Urine Ketones (Negative) Urine Blood (Negative) Urine Nitrite (Negative) Urine Bilirubin (Negative) Urine Urobilinogen (<2.0) mg/dL Ur Leukocyte Esterase (Negative) Urine HCG, Qual (Not Detectd) Blood Type B Positive Blood Type Recheck B Pos Bld Type Recheck Status No Disposition Clinical Impression: Nausea & vomiting, Disposition: HOME SELF-CARE Condition: Good Instructions (If sedation given, give patient instructions): (ED), Nausea and Vomiting in (ED) Additional Instructions: Please follow up with Dr. Noland. Please return with worsening or changing symptoms. Is patient prescribed a controlled substance at d/c from ED?: No Referrals: Burke Cope MD [Primary Care Provider] - 1-2 days Time of Disposition: 17:55
[2021-01-17 15:52] LABS: Basophils % (A) 0 %; Eosinophils % (A) 1 %; HCT 34.6 % (34.0-46.0); HGB 12.1 gm/dL (11.4-16.0); Lymphocytes # (A) 1.1 k/uL (1.0-4.8); Lymphocytes % (A) 29 %; MCH 29.9 pg (25.0-35.0); MCHC 34.9 g/dL (31.0-37.0); MCV 85.9 fL (80.0-100.0); Mean Platelet Volume 8.3; Monocytes # (A) 0.3 k/uL (0-1.0); Monocytes % (A) 9 %; Neutrophils # (A) 2.2 k/uL (1.3-7.7); Neutrophils % (A) 59 %; Platelet Count 198 k/uL (150-450); RBC 4.03 m/uL (3.80-5.40); RDW 13.6 % (11.5-15.5); WBC 3.8 k/uL (3.8-10.6)
[2021-01-17 16:03] LABS: ALT 16 U/L (4-34); AST 25 U/L (14-36); African American GFR (CKD) >90 (>60 ml/min/1.73 sqM); Albumin 4.2 g/dL (3.5-5.0); Alkaline Phosphatase 49 U/L (38-126); Amylase 104 U/L (30-110); Anion Gap 10 mmol/L; Blood Urea Nitrogen 6 mg/dL (7-17); Calcium 9.4 mg/dL (8.4-10.2); Carbon Dioxide 22 mmol/L (22-30); Chloride 106 mmol/L (98-107); Glucose 85 mg/dL (74-99); Lipase 60 U/L (23-300); Non-African American GFR(CKD) >90 (>60 ml/min/1.73 sqM); Potassium 3.8 mmol/L (3.5-5.1); Sodium 138 mmol/L (137-145); Total Bilirubin 0.6 mg/dL (0.2-1.3); Total Protein 6.9 g/dL (6.3-8.2)
--- NOTE | 2021-01-17 17:02 | US ---
EXAMINATION TYPE: Transabdominal DATE OF EXAM: 01/17/2021 4:46 PM COMPARISON: NONE CLINICAL HISTORY: preg pain. pelvic pain EXAM PERFORMED: Transabdominal (TA) EXAM MEASUREMENTS: GESTATIONAL AGE / DATING Physician Established: Not yet established Dates by LMP: (2 weeks/1 days) EDC: 10/09/21 Dates by First Scan: No previous this is first scan Dates by Current Scan for: (5 weeks/4 days) EDC: 09/15/21 - MSD MATERNAL ANATOMY Uterus: 7.4 x 5.4 x 5.6cm Right Ovary: 2.3 x 1.0 x 1.6cm Left Ovary: 3.1 x 1.7 x 2.4cm Post CDS / Adnexa: dilated vessels bilateral adnexa Presence of free fluid: no Presence of corpus luteal cyst: hypoechoic area left ovary = 1.5 x 1.4 x 1.9cm GESTATION / SURVEY MSD: 1.4cm (5 weeks/4 days) Yolk Sac (normal less than 6mm): 0.3cm no evidence of pole at this time. Date of LMP: 01/02/21 Beta HcG (if available): Not available at this time IMPRESSION: Intrauterine saclike structure without pole identified and suggestive of early gestation. Recom mend serial beta hCG and follow-up imaging to confirm viability and exclude failed .
[2021-01-17 18:00] VITALS: BP 124/71; PULSE 72; RESP 16; TEMP 99.9
== END 2021-01-17 18:50 | disposition home or self-care (01) ==
LOC: EC 14:56
DX: O21.9 Vomiting of pregnancy, unspecified (principal); O26.891 Other specified pregnancy related conditions, first trimester; R10.30 Lower abdominal pain, unspecified; Z3A.01 Less than 8 weeks gestation of pregnancy
CPT/HCPCS: 36415; 86900; 86901; 80053; 82150; 83605; 83690; 85025; 81003; 81025; 84702; 87040; 76801; 99284; 96374; 96361; J2405

== ENCOUNTER → 2021-01-18 | Outpatient (CLI) | payer OTHER | END | disposition home or self-care (01) | LOC: LABWHC1 14:23 | PROVIDERS: ATTEND Emergency Medicine | DX: O20.0 Threatened abortion (principal); Z3A.00 Weeks of gestation of pregnancy not specified | CPT/HCPCS: 36415; 84702 ==

== ENCOUNTER 2021-06-27 15:35 | Outpatient (CLI) | payer OTHER ==
[2021-06-27 16:08] VITALS: BP 122/65; PULSE 84; RESP 16; TEMP 97.3
[2021-06-27 16:13] LABS: Appearance,Urine Clear (Clear); Bilirubin,Urine Negative (Negative); Blood,Urine Negative (Negative); Color,Urine Yellow; Glucose,Urine (UA) Negative (Negative); Ketones,Urine 1+ (Negative); Leukocyte Esterase,Urine Negative (Negative); Nitrite,Urine Negative (Negative); PH, Urine 5.5 (5.0-8.0); Protein,Urine Negative (Negative); Specific Gravity,Urine 1.015 (1.001-1.035); Urobilinogen,Urine <2.0 mg/dL (<2.0)
--- NOTE | 2021-06-28 07:59 | P.MSEPDOC ---
Presenting Problems - Arrival Data Date of Arrival on Unit: 06/27/21 Time of Arrival on Unit: 15:40 Mode of Transport: Ambulatory - Complaint OB-Reason for Admission/Chief Complaint: Pain Comment: abd cramping. 03/25 Medical History - Information : 5 Para: 4 Term: 4 : 0 Abortions: Spontaneous or Elective: 0 Number of Living Children: 4 - Gestational Age Gestational Age by FATMATA (wks/days): 29 Weeks and 2 Days - History Complications: No Care Comment: late care Review of Systems - Review of Systems Constitutional: No problems Breast: No problems ENT: No problems Cardiovascular: No problems Respiratory: No problems Gastrointestinal: No problems Genitourinary: No problems Musculoskeletal: No problems Neurological: No problems Skin: No problems Vital Signs - Temperature Temperature: 97.3 F Temperature Source: Temporal Artery Scan - Pulse Pulse Oximetery Pulse Rate: 84 Pulse Assessment Method: Pulse Oximetry - Respirations Respiratory Rate: 16 Oxygen Delivery Method: Room Air O2 Sat by Pulse Oximetry: 97 - Blood Pressure Right Arm Sitting Blood Pressure: 122/65 Blood Pressure Mean: 84 Blood Pressure Source: Automatic Cuff Maternal Triage Index - Maternal Triage Index Presenting for scheduled procedure w/no complaint: No - Stat/Priority 1 Stat Priority 1: No - Urgent/Priority 2 Urgent Priority 2: No - Prompt/Priority 3 Prompt Priority 3: No - Non-Urgent/Priority 4 Non-Urgent Priority 4: No - Scheduled/Requesting Priority 5 Scheduled/Requesting Priority 5: Yes Criteria Met for Priority 5: abd cramping Disposition - Disposition OB Disposition: Triage, Discharge to home Discharge Date: 06/27/21 Discharge Time: 16:33 I agree with the RN Medical Screening Exam: Yes Case reviewed; plan agreed upon as documented in EMR&OBIX.: Yes Comments: Pateint was neither seen nor examined by me Diagnosis: FALSE LABOR, UNSPECIFIED
== END 2021-06-27 16:33 | disposition home or self-care (01) ==
LOC: FBPOP 15:35
PROVIDERS: ATTEND Obstetrics & Gynecology
DX: O47.9 False labor, unspecified (principal); Z3A.29 29 weeks gestation of pregnancy
CPT/HCPCS: 81003; G0463; 99213

== ENCOUNTER 2021-08-17 20:24 | Outpatient (CLI) | payer OTHER ==
[2021-08-17 21:31] VITALS: BP 131/60; PULSE 110; RESP 16; TEMP 97.5
--- NOTE | 2021-10-06 09:28 | P.MSEPDOC ---
Presenting Problems - Arrival Data Date of Arrival on Unit: 08/17/21 Time of Arrival on Unit: 20:24 Mode of Transport: Ambulatory - Complaint OB-Reason for Admission/Chief Complaint: Pain Comment: Pt presents to triage with c/o a sharp pain in vagina that started around 193. 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 Pt states her fourth child came on their own at 38 weeks. Pt states she is not taking any medication for heart condition and that she has not had any issues with it this . Pt reports Dr. Griffith is not concerned and is not planning on inducing early due to WPW Review of Systems - Review of Systems Constitutional: No problems Breast: No problems ENT: No problems Cardiovascular: No problems Respiratory: No problems Gastrointestinal: No problems Genitourinary: No problems Musculoskeletal: No problems Neurological: No problems Skin: No problems Vital Signs - Temperature Temperature: 97.5 F Temperature Source: Temporal Artery Scan - Pulse Pulse Oximetery Pulse Rate: 110 Pulse Assessment Method: Automatic Cuff - Respirations Respiratory Rate: 16 Oxygen Delivery Method: Room Air O2 Sat by Pulse Oximetry: 97 - Blood Pressure Right Arm Blood Pressure: 131/60 Blood Pressure Mean: 83 Blood Pressure Source: Automatic Cuff Medical Screen Scoring - Cervical Exam Dilation (cm): 1 Effacement (%): 60 Station: -1 Membranes: Intact - Uterine Contractions Intensity: Mild Resting: Soft to palpation - Assessment - Baby A Baseline FHR: 140 Heart Rate - NICHD Category: Category I (Normal) NST: Reactive Physician Notification - Physician Notified Physician Notified Date: 08/17/21 Physician Notified Time: 21:04 Physician: Nivia Neal New Order Received: Yes - Notification Comment Comment: Dr. Neal in dept. Update provided re: pt c/o sharp, knife like pain in vagina. that started around 193, pain 7/10, reactive NST, contx pattern, pelvic/bedrest for last month due to "baby sititng low", SVE same as in office yesterday, and vitals WNL. Strip reviewed per Dr. Neal. Orders received to d/c pt home at this time Maternal Triage Index - Maternal Triage Index Presenting for scheduled procedure w/no complaint: No - Stat/Priority 1 Stat Priority 1: No - Urgent/Priority 2 Urgent Priority 2: No - Prompt/Priority 3 Prompt Priority 3: No - Non-Urgent/Priority 4 Non-Urgent Priority 4: Yes Criteria Met for Priority 4: Non-urgent symptoms: sharp knifelike pain in vagina Disposition - Disposition OB Disposition: Discharge to home Discharge Date: 08/17/21 Discharge Time: 21:13 I agree with the RN Medical Screening Exam: Yes Case reviewed; plan agreed upon as documented in EMR&OBIX.: Yes Diagnosis: RELATED CONDITIONS, UNSPECIFIED, THIRD TRIMESTER
== END 2021-08-17 21:13 | disposition home or self-care (01) ==
LOC: FBPOP 20:24
PROVIDERS: ATTEND Obstetrics & Gynecology Obstetrics
DX: O26.893 Other specified pregnancy related conditions, third trimester (principal); R10.2 Pelvic and perineal pain; Z3A.36 36 weeks gestation of pregnancy
CPT/HCPCS: 59025; G0463; 99213

== ENCOUNTER 2021-08-25 12:32 | Outpatient (CLI) | payer OTHER ==
[2021-08-25 13:30] VITALS: BP 125/56; PULSE 88; RESP 16; TEMP 97.7
--- NOTE | 2021-10-06 09:25 | P.MSEPDOC ---
Presenting Problems - Arrival Data Date of Arrival on Unit: 08/25/21 Time of Arrival on Unit: 12:32 Mode of Transport: Ambulatory - Complaint OB-Reason for Admission/Chief Complaint: Rule Out SROM Comment: Pt states woke up with wet shorts at 0900, clear fluid with no odor, denies further leaking, did not wear a pad, perineum dry. Medical History - Information : 5 Para: 4 Term: 4 : 0 Abortions: Spontaneous or Elective: 0 Number of Living Children: 4 - Gestational Age Gestational Age by FATMATA (wks/days): 37 Weeks and 5 Days Review of Systems - Review of Systems Constitutional: No problems Breast: No problems ENT: No problems Cardiovascular: No problems Respiratory: No problems Gastrointestinal: No problems Genitourinary: No problems Musculoskeletal: No problems Neurological: No problems Skin: No problems Vital Signs - Temperature Temperature: 97.7 F Temperature Source: Oral - Pulse Right Sitting Brachial Pulse Rate: 88 Pulse Assessment Method: Automatic Cuff - Respirations Respiratory Rate: 16 Oxygen Delivery Method: Room Air - Blood Pressure Right Arm Sitting Blood Pressure: 125/56 Blood Pressure Mean: 79 Blood Pressure Source: Automatic Cuff Medical Screen Scoring - Cervical Exam Dilation (cm): 3 Effacement (%): 60 Station: -2 Membranes: Intact - Assessment - Baby A Baseline FHR: 140 Heart Rate - NICHD Category: Category I (Normal) NST: Reactive Physician Notification - Physician Notified Physician Notified Date: 08/25/21 Physician Notified Time: 13:20 Physician: Luis Miguel Carpenter New Order Received: Yes - Notification Comment Comment: Spk c\Dr. Carpenter, advil pt of Nacho, , 37 5/7, c/o possible SROM at 0900, amnisure negative, no leaking, SVE 3/60/-2, firm cervix, unchanged from check 2 days ago. Cat 1 FHT. Appt 08/30 c\Nacho. Orders rec'd to d/c home. Maternal Triage Index - Maternal Triage Index Presenting for scheduled procedure w/no complaint: No - Stat/Priority 1 Stat Priority 1: No - Urgent/Priority 2 Urgent Priority 2: No - Prompt/Priority 3 Prompt Priority 3: No - Non-Urgent/Priority 4 Non-Urgent Priority 4: Yes Criteria Met for Priority 4: r/o SROM, 37 5/7 wks Disposition - Disposition OB Disposition: Discharge to home, Written follow up instructions reviewed Discharge Date: 08/25/21 Discharge Time: 13:26 I agree with the RN Medical Screening Exam: Yes Physician's MSE Comment: I have neither seen nor examined the patient. Case reviewed; plan agreed upon as documented in EMR&OBIX.: Yes Diagnosis: RELATED CONDITIONS, UNSPECIFIED, THIRD TRIMESTER
== END 2021-08-25 13:26 | disposition home or self-care (01) ==
LOC: FBPOP 12:32
PROVIDERS: ATTEND Obstetrics & Gynecology
DX: O26.893 Other specified pregnancy related conditions, third trimester (principal); N89.8 Other specified noninflammatory disorders of vagina; Z3A.37 37 weeks gestation of pregnancy
CPT/HCPCS: 59025; 84112; G0463; 99213

== ENCOUNTER 2021-09-01 04:43 | Inpatient (IN) | payer OTHER ==
[2021-09-01] MEDS ORDERED: LIDOCAINE 0.5% (PF) 5 MG/ML (50 ML SDV) SQ PRN (06:10)
[2021-09-01] MEDS ORDERED: TERBUTALINE 1 MG/ML VIAL SQ PRN (06:10)
[2021-09-01] MEDS ORDERED: CARBOPROST TROMETHAMINE 250 MCG/ML 1 ML AMP IM PRN (06:10)
[2021-09-01] MEDS ORDERED: METHYLERGONOVINE 0.2 MG/ML 1 ML AMP IM PRN (06:10)
[2021-09-01] MEDS ORDERED: OXYTOCIN 10 UNIT/ML 1 ML VIAL IM PRN (06:10)
[2021-09-01] MEDS ORDERED: OXYTOCIN 30 UNITS/500 ML NS 30 UNIT in SALINE 1 500ML.BAG IV SCH (06:15)
[2021-09-01] MEDS: LACTATED RINGERS 1,000 ML IV SCH ×2 (06:30→07:35)
[2021-09-01 06:53] LABS: Basophils % (A) 1 %; Eosinophils % (A) 3 %; HCT 34.8 % (34.0-46.0); HGB 11.3 gm/dL (11.4-16.0); Hypochromasia Slight; Lymphocytes % (A) 25 %; MCH 28.3 pg (25.0-35.0); MCHC 32.4 g/dL (31.0-37.0); MCV 87.3 fL (80.0-100.0); Mean Platelet Volume 8.8; Monocytes % (A) 6 %; Neutrophils % (A) 62 %; Platelet Count 350 k/uL (150-450); RBC 3.99 m/uL (3.80-5.40); RDW 14.1 % (11.5-15.5); WBC 12.4 k/uL (3.8-10.6)
[2021-09-01 06:54] LABS: Basophils # (A) 0.1 k/uL (0-0.2); Eosinophils # (A) 0.4 k/uL (0-0.7); Lymphocytes # (A) 3.1 k/uL (1.0-4.8); Monocytes # (A) 0.8 k/uL (0-1.0); Neutrophils # (A) 7.7 k/uL (1.3-7.7)
[2021-09-01 07:04] LABS: Amphetamine Screen,Urine Not Detected (NotDetected); Barbiturate Screen,Urine Not Detected (NotDetected); Benzodiazepines Screen,Urine Not Detected (NotDetected); Cocaine Screen,Urine Not Detected (NotDetected); Methadone Screen, Urine Not Detected (NotDetected); Opiate Screen,Urine Not Detected (NotDetected); Oxycodone Screen, Urine Not Detected (NotDetected); Phencyclidine Screen,Urine Not Detected (NotDetected); Tricyclic Antidepressant,Urine Not Detected (NotDetected); Urn Cannabinoid Scrn Detected (NotDetected)
--- NOTE | 2021-09-01 07:26 | P.HPOB ---
History of Present Illness H&P Date: 09/01/21 Chief Complaint: Strong uterine contractions every 10 minutes apart This is a 26-year-old female 5 para 4004 EDC 09/10/2021 at 38-5/7 weeks' gestation who initially presented to the hospital with uterine contractions every 10 minutes apart, moderate to strong intensity, throughout the night. She was monitored in the triage area, heart tones were reassuring, however there was a variable deceleration down to the 100s. Cervix is 5 cm dilated, patient is admitted for labor. Past medical history significant for Corbett Parkinson White syndrome, asymptomatic. Past surgical history is negative. Current medications vitamins daily, Zofran as needed, baby aspirin daily. ALLERGIES none known. Family history significant for colon cancer, brain aneurysm, diabetes. Obstetric history is significant for normal spontaneous vaginal deliveries 4, unremarkable. Social history patient is a former tobacco smoker, quit with . She is , she denies alcohol or drug use. history blood type is B+, rubella status immune. VDRL testing, urine culture, group B strep cultures, HIV, hepatitis B surface antigen, gonorrhea Chlamydia cultures all negative. One-hour Glucola 108. On exam patient is 5 foot 0 inches, 124 pounds, blood pressure 134/72 with a pulse of 82 on admission. General physical exam is within normal limits. Chest is clear in all snyder. Cardiac exam reveals regular rate and rhythm. Cervix is 5 cm dilated, 80% effaced, -1 to -2 station, vertex presentation. Artificial amniorrhexis reveals clear fluid. heart rate at this time is consistent with reactive NST with frequent accelerations. Uterine contractions are occurring every 5 minutes apart of moderate intensity. Impression: 38-5/7 weeks intrauterine , early labor. All signs reassuring at this time with one variable deceleration noted in the triage area. Plan: Patient is requesting epidural and anesthesia is aware. Continue close maternal and surveillance. Oxytocin augmentation as needed. Anticipate normal spontaneous vaginal delivery. 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 History of Any Multi-Drug Resistant Organisms: None Reported, MRSA Date of last positivie culture/infection: 12/02/19 MDRO Source:: MRSA AXILLA Past Surgical History: No Surgical Hx Reported Past Anesthesia/Blood Transfusion Reactions: No Reported Reaction Past Psychological History: Anxiety, Depression Additional Psychological History / Comment(s): pt lives with fiance and children, taking wellbutrin for depression Smoking Status: Current every day smoker Past Alcohol Use History: Occasional Past Drug Use History: None Reported - Past Family History Father History Unknown: Yes Additional Family Medical History / Comment(s): Father resides in [facility] and pt does not know his medical hx. Mother Family Medical History: No Reported History Additional Family Medical History / Comment(s): 4 brain anyresms Medications and Allergies Home Medications Medication Instructions Recorded Confirmed Type Pnv,Calcium 72/Iron/Folic Acid 1 tab PO DAILY 06/27/21 09/01/21 History [ Plus Tablet] Iron 1 tab PO DAILY 08/17/21 09/01/21 History buPROPion [Wellbutrin] 25 mg PO DAILY 08/25/21 09/01/21 History Allergies Allergy/AdvReac Type Severity Reaction Status Date / Time No Known Allergies Allergy Verified 09/01/21 04:51 Exam Vital Signs Temp Pulse Resp BP 09/01/21 06:36 97.0 F L 82 18 134/72 09/01/21 06:19 97.0 F L 82 18 134/72 Intake and Output 08/31/21 09/01/21 09/01/21 22:59 06:59 14:59 Other: Weight 56.245 kg Dictation under HPI please Results Result Diagrams: 09/01/21 06:30 Abnormal Lab Results - Last 24 Hours (Table) 09/01/21 09/01/21 Range/Units 05:30 06:30 WBC 12.4 H (3.8-10.6) k/uL Hgb 11.3 L (11.4-16.0) gm/dL U Marijuana (THC) Screen Detected H (NotDetected) Assessment and Plan Assessment: 38-5/7 weeks intrauterine , early labor. All signs reassuring. Plan: Oxytocin augmentation as needed. Dural has been requested in the anesthesia team is aware. close maternal and surveillance. Anticipate normal spontaneous vaginal delivery.
[2021-09-01] MEDS ORDERED: ACETAMINOPHEN TAB 325 MG TAB PO PRN (08:25)
[2021-09-01] MEDS ORDERED: diphenhydrAMINE 25 MG CAP PO PRN (08:25)
[2021-09-01] MEDS ORDERED: diphenhydrAMINE ELIXIR 25 MG/10 ML CUP PO PRN (08:25)
[2021-09-01] MEDS ORDERED: HYDROCORTISONE 2.5% RECTAL CREAM 30 GM TUBE RECTAL PRN (08:25)
[2021-09-01] MEDS ORDERED: LANOLIN CREAM 5 GM TUBE TOPICAL PRN (08:25)
[2021-09-01] MEDS ORDERED: diphenhydrAMINE 50 MG CAP PO PRN (08:25)
[2021-09-01] MEDS ORDERED: SIMETHICONE 80 MG CHEWABLE PO PRN (08:25)
[2021-09-01] MEDS ORDERED: diphenhydrAMINE 50 MG/ML 1 ML VIAL IVP PRN ×2 (08:25)
[2021-09-01] MEDS ORDERED: BENZOCAINE/MENTHOL SPRAY 1 GM/SPRAY AEROSOL TOPICAL PRN (08:25)
[2021-09-01] MEDS ORDERED: ZOLPIDEM 5 MG TAB PO PRN (08:25)
--- NOTE | 2021-09-01 08:25 | P.PROBDLV ---
Vaginal Delivery Note - . Vaginal Delivery Note: This is a 26-year-old white female 5 para 4004 EDC 09/10/2021 at 38-5/7 weeks' gestation who presented early this morning in early labor. Group strep cultures negative, blood type B positive, rubella status immune. Essentially normal , please see dictated history and physical for details. On admission patient was 5 cm dilated. Artificial amniorrhexis revealed clear fluid. 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 Epidural was placed per her request. She became completely dilated at 0758 hours. Perineal body was prepped and draped in usual sterile fashion. With excellent maternal expulsive efforts 's head delivered occiput anterior and restituted accordingly. There was a nuchal cord 1 that was reduced. Left or anterior shoulder was gently delivered from underneath the pubic symphysis at which time the oropharynx, nasopharynx, and external nares were all bulb suctioned. Patient was officially delivered of a liveborn male infant at 0810 hours. There was a tight body cord 1 that was reduced that wrapped as well around the shoulder. Umbilical cord was doubly clamped and ligated, he was handed to waiting nurses for evaluation where scores of 9 and 10 at one and 5 minutes respectively were given. The placenta delivered spontaneously, it was inspected and noted to be intact with trivascular cord at 0813 hours. Uterus is then massaged. Careful inspection of the cervix, vagina, perineum, periurethral, and perirectal areas revealed no lacerations or defects. Total estimated blood loss 250 mL's. All sponge needle and enhancement counts are correct. Patient is requesting circumcision for her infant son.
[2021-09-01] MEDS: IBUPROFEN 600 MG TAB PO SCH ×3 (11:46→22:21)
[2021-09-01] MEDS ORDERED: ROPIVACAINE 100 MG, fentaNYL (PF). 200 MCG in SODIUM CHLORIDE 0.9% 76 ML EPIDURAL ONE (12:45)
[2021-09-01] MEDS: SENNOSIDES-DOCUSATE SODIUM 1 EACH TAB PO SCH (20:38)
[2021-09-02 01:22] VITALS: TEMP 98.3
[2021-09-02] MEDS: IBUPROFEN 600 MG TAB PO SCH ×2 (06:27→09:09)
[2021-09-02] MEDS: SENNOSIDES-DOCUSATE SODIUM 1 EACH TAB PO SCH (09:09)
[2021-09-02 09:43] VITALS: BP 118/63; PULSE 71; RESP 18
--- NOTE | 2021-09-02 11:02 | P.DS ---
Providers Date of admission: 09/01/21 06:10 Expected date of discharge: 09/02/21 Attending physician: Sinai Griffith Primary care physician: Stated None - Discharge Diagnosis(es) (1) Spontaneous onset of labor Current Visit: Yes Status: Acute (2) Term Current Visit: Yes Status: Acute (3) Normal spontaneous vaginal delivery Current Visit: Yes Status: Acute (4) Nuchal cord Current Visit: Yes Status: Acute Hospital Course: This is a 26-year-old 5 now para 5 woman who presented at 38-5/7 weeks gestation in spontaneous active labor. Following admission she received an epidural anesthetic. She received Pitocin augmentation and artificial rupture of membranes. She went on to deliver a liveborn male infant with Apgars of 9 at 1 minute and 10 at 5 minutes. Please see the delivery summary for complete details. The patient's course was unremarkable. By day #1 she was ambulating and voiding without difficulty. Her lochia was decreasing. She was breast-feeding successfully. She had sustained no perineal lacerations and her pain was well-controlled. Vital signs were stable. She was therefore discharged home with routine instructions for care and follow-up. Patient Condition at Discharge: Good Plan - Discharge Summary New Discharge Prescriptions: No Action Iron 1 tab PO DAILY buPROPion [Wellbutrin] 25 mg PO DAILY Pnv,Calcium 72/Iron/Folic Acid [ Plus Tablet] 1 tab PO DAILY Discharge Medication List Pnv,Calcium 72/Iron/Folic Acid [ Plus Tablet] 1 tab PO DAILY 06/27/21 [History] Iron 1 tab PO DAILY 08/17/21 [History] buPROPion [Wellbutrin] 25 mg PO DAILY 08/25/21 [History] Follow up Appointment(s)/Referral(s): Sinai Griffith MD [STAFF PHYSICIAN] - 6 Weeks Activity/Diet/Wound Care/Special Instructions: Follow-up in the office in 6 weeks . Call with any concerning signs or symptoms including heavy vaginal bleeding, severe abdominal pain, fever greater than 101, swelling or redness of the lower extremities, foul vaginal discharge, or signs of depression. Nothing in the vagina for 6 weeks after delivery, specifically no intercourse. Discharge Disposition: HOME SELF-CARE
== END 2021-09-02 13:00 | disposition home or self-care (01) | DRG 805 ==
LOC: FBPOP 04:43 → 4FBP 06:10
PROVIDERS: ADMIT Obstetrics & Gynecology; ATTEND Obstetrics & Gynecology
PROC: 10E0XZZ Delivery of Products of Conception, External Approach (ICD-10-PCS; principal; 2021-09-01)
PROC: 4A0HXCZ Measurement of Products of Conception, Cardiac Rate, External Approach (ICD-10-PCS; 2021-09-01)
PROC: 10907ZC Drainage of Amniotic Fluid, Therapeutic from Products of Conception, Via Natural or Artificial Opening (ICD-10-PCS; 2021-09-01)
PROC: 3E033VJ Introduction of Other Hormone into Peripheral Vein, Percutaneous Approach (ICD-10-PCS; 2021-09-01)
DX: O76 Abnormality in fetal heart rate and rhythm complicating labor and delivery (principal); O99.42 Diseases of the circulatory system complicating childbirth; Z37.0 Single live birth; F17.210 Nicotine dependence, cigarettes, uncomplicated; F32.A Depression, unspecified; F41.9 Anxiety disorder, unspecified; I45.6 Pre-excitation syndrome; O69.81X0 Labor and delivery complicated by cord around neck, without compression, not applicable or unspecified; O99.344 Other mental disorders complicating childbirth; Z3A.38 38 weeks gestation of pregnancy; Z79.82 Long term (current) use of aspirin; Z79.899 Other long term (current) drug therapy
CPT/HCPCS: 59025; 80306; 85025; 86850; 86900; 86901; 99213

== ENCOUNTER 2022-02-27 14:20 | Emergency (ER) | payer OTHER ==
[2022-02-27 15:12] VITALS: BP 139/91; PULSE 83; RESP 16; TEMP 97.7
[2022-02-27] MEDS ORDERED: LORazepam 1 MG TAB PO STA (15:37)
--- NOTE | 2022-02-27 15:41 | ED ---
Anxiety HPI - General Chief Complaint: Anxiety Stated Complaint: Anxiety Time Seen by Provider: 02/27/22 15:13 Source: patient Mode of arrival: ambulatory - History of Present Illness Initial Comments: Patient is a 26-year-old female presenting with chief complaint of anxiety. Patient states that for the last week her anxiety has been much worse. She admits to frequent panic attacks, loss of appetite, and nausea. She is currently on Wellbutrin, she has no appointment with Dr. Cope to increase the dosage. Patient was hopeful that by coming here today in seeking help she would be able to get in with Dr. Cope sooner. She denies any chest pain, shortness of breath, abdominal pain, vomiting, diarrhea, hematochezia, melena, cough, congestion, headache, vision or hearing changes, dysuria, hematuria, urgency, frequency. - Related Data Home Medications: Home Medications Medication Instructions Recorded Confirmed Pnv,Calcium 72/Iron/Folic Acid 1 tab PO DAILY 06/27/21 11/10/21 [ Plus Tablet] Iron 1 tab PO DAILY 08/17/21 11/10/21 buPROPion [Wellbutrin] 25 mg PO DAILY 08/25/21 11/10/21 Previous Rx's Medication Instructions Recorded hydrOXYzine HCL 25 mg PO Q8HR PRN #20 tab 02/27/22 Allergies/Adverse Reactions: Allergies Allergy/AdvReac Type Severity Reaction Status Date / Time No Known Allergies Allergy Verified 02/27/22 15:12 Review of Systems ROS Statement: Those systems with pertinent positive or pertinent negative responses have been documented in the HPI. ROS Other: All systems not noted in ROS Statement are negative. 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 History of Any Multi-Drug Resistant Organisms: MRSA Date of last positivie culture/infection: 12/02/19 MDRO Source:: MRSA LEFT AXILLA Past Surgical History: No Surgical Hx Reported Past Anesthesia/Blood Transfusion Reactions: No Reported Reaction Additional Past Anesthesia/Blood Transfusion Reaction / Comment(s): NO ANESTH HX Past Psychological History: Anxiety, Depression Smoking Status: Current every day smoker Past Alcohol Use History: None Reported Past Drug Use History: Marijuana - Past Family History Father History Unknown: Yes Mother Family Medical History: No Reported History General Exam Limitations: no limitations General appearance: alert, in no apparent distress Head exam: Present: atraumatic, normocephalic, normal inspection Eye exam: Present: normal appearance, EOMI. Absent: scleral icterus Neck exam: Present: normal inspection Respiratory exam: Present: normal lung sounds bilaterally. Absent: respiratory distress, wheezes, rales, rhonchi, stridor Cardiovascular Exam: Present: regular rate, normal rhythm, normal heart sounds. Absent: systolic murmur, diastolic murmur, rubs, gallop, clicks Neurological exam: Present: alert, oriented X3, CN II-XII intact Psychiatric exam: Present: normal affect, normal mood Skin exam: Present: warm, dry, intact, normal color. Absent: rash Course Vital Signs 02/27/22 15:10 Temperature 97.7 F Pulse Rate 83 Respiratory 16 Rate Blood Pressure 139/91 O2 Sat by Pulse 99 Oximetry Medical Decision Making - Medical Decision Making Patient is a 26-year-old female presenting with chief complaint of anxiety. Patient states that over the last week her anxiety has been increased. She is currently on Wellbutrin. She is unable to get in to see her PCP until next week. Vitals are stable. Examination is unremarkable. Patient was given anxiety medication here in the ER, she was discharged with a prescription for hydroxyzine. I discussed precautions when taking hydroxyzine. Follow-up with PCP as soon as possible. Report back to ER with any new or worsening symptoms. I discussed return parameters and alarming symptoms. Answered all questions. Patient conveyed verbal understanding and agreed to the plan. I discussed this case with my attending Dr. Dumont. Disposition Clinical Impression: Acute anxiety Disposition: HOME SELF-CARE Condition: Good Instructions (If sedation given, give patient instructions): Generalized Anxiety Disorder (ED) Additional Instructions: Follow-up with PCP at scheduled appointment. Report back to ER if any new or worsening symptoms. Take medication as prescribed. Prescriptions: hydrOXYzine HCL 25 mg PO Q8HR PRN #20 tab PRN Reason: Anxiety Is patient prescribed a controlled substance at d/c from ED?: No Referrals: None,Stated [REFERRING] - 1-2 days Time of Disposition: 15:41
== END 2022-02-27 15:49 | disposition home or self-care (01) ==
LOC: EC 14:20
DX: F41.9 Anxiety disorder, unspecified (principal); F32.A Depression, unspecified; F17.200 Nicotine dependence, unspecified, uncomplicated; F12.90 Cannabis use, unspecified, uncomplicated; Z79.899 Other long term (current) drug therapy
CPT/HCPCS: 99283

== ENCOUNTER 2022-03-04 07:59 | Emergency (ER) | payer OTHER ==
[2022-03-04] MEDS ORDERED: NEOMYCIN-POLYMYXIN-HC (3.5-10,000-10 MG) OTIC DROPS 10 ML BTL LEFT EAR STA (09:06)
--- NOTE | 2022-03-04 09:06 | ED ---
ENT HPI - General Chief complaint: ENT Stated complaint: Covid, ear pain Time Seen by Provider: 03/04/22 08:06 Source: patient Mode of arrival: ambulatory Limitations: no limitations - History of Present Illness Initial comments: Patient is a 26-year-old female presenting with chief complaint of left ear pain. Pain began yesterday, she states that her ears have been popping. She admits to external pain as well. She denies any hearing changes or discharge from the ear. Her infant son is Covid positive. She denies any sore throat, congestion, sinus pain or pressure, fever, chills, nausea, vomiting, headache, vision or hearing changes, neck pain or stiffness, chest pain, shortness of breath. - Related Data Home Medications Medication Instructions Recorded Confirmed Vit No.180/Iron/Folic 1 tab PO DAILY 06/27/21 11/10/21 [ Plus Tablet] Iron 1 tab PO DAILY 08/17/21 11/10/21 buPROPion [Wellbutrin] 25 mg PO DAILY 08/25/21 11/10/21 Previous Rx's Medication Instructions Recorded hydrOXYzine HCL 25 mg PO Q8HR PRN #20 tab 02/27/22 Allergies Allergy/AdvReac Type Severity Reaction Status Date / Time No Known Allergies Allergy Verified 03/04/22 08:06 Review of Systems ROS Statement: Those systems with pertinent positive or pertinent negative responses have been documented in the HPI. ROS Other: All systems not noted in ROS Statement are negative. 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 History of Any Multi-Drug Resistant Organisms: MRSA Date of last positivie culture/infection: 12/02/19 MDRO Source:: MRSA LEFT AXILLA Past Surgical History: No Surgical Hx Reported Past Anesthesia/Blood Transfusion Reactions: No Reported Reaction Additional Past Anesthesia/Blood Transfusion Reaction / Comment(s): NO ANESTH HX Past Psychological History: Anxiety, Depression Smoking Status: Current every day smoker Past Alcohol Use History: None Reported Past Drug Use History: Marijuana - Past Family History Father History Unknown: Yes Additional Family Medical History / Comment(s): Father resides in [facility] and pt does not know his medical hx. Mother Family Medical History: No Reported History Additional Family Medical History / Comment(s): 4 brain anyresms General Exam Limitations: no limitations General appearance: alert, in no apparent distress Head exam: Present: atraumatic, normocephalic, normal inspection Eye exam: Present: normal appearance, EOMI. Absent: scleral icterus ENT exam: Present: normal oropharynx, mucous membranes moist, TM's normal bilaterally, other (Left-sided tragal tenderness, canal erythema, no mastoid tenderness.) Neck exam: Present: normal inspection Neurological exam: Present: alert, oriented X3, CN II-XII intact Psychiatric exam: Present: normal affect, normal mood Skin exam: Present: warm, dry, intact, normal color. Absent: rash Course Vital Signs 03/04/22 03/04/22 08:04 09:27 Temperature 97.8 F 98.1 F Pulse Rate 84 71 Respiratory 20 18 Rate Blood Pressure 129/89 122/78 O2 Sat by Pulse 99 99 Oximetry Medical Decision Making - Medical Decision Making Patient is a 26-year-old female presenting with chief complaint of left ear pain. Pain started yesterday, states her ear has been popping, she has been exposed to Covid. On examination there is tragal tenderness and canal tenderness and erythema. There is no mastoid tenderness. Patient is swabbed for Covid, results pending at time of discharge. I instructed her that she is able to call our facility for her results showed she did not want to wait for them. Patient likely has otitis externa, we'll treat with polymyxin B ear drops. Follow-up with PCP in one to 2 days. Report back to ER if any new or worsening symptoms. Answered all questions and discussed return parameters. Patient conveyed verbal understanding and agreed to the plan. I discussed this case with my attending Dr. Bro - Lab Data Lab Results 03/04/22 Range/Units 08:17 Coronavirus (PCR) Not Detected (Not Detectd) Disposition Clinical Impression: Otitis externa Disposition: HOME SELF-CARE Condition: Good Instructions (If sedation given, give patient instructions): Earache (ED) Additional Instructions: Follow-up with PCP this week. Report back to ER with any new or worsening symptoms. You may call the ER for Covid test results. Apply 4 drops of antibiotic eardrops 4 times daily for 7 days. Is patient prescribed a controlled substance at d/c from ED?: No Referrals: Burke Cope MD [Primary Care Provider] - 1-2 days Time of Disposition: 09:05
[2022-03-04 09:29] VITALS: BP 122/78; PULSE 71; RESP 18; TEMP 98.1
== END 2022-03-04 09:29 | disposition home or self-care (01) ==
LOC: EC 07:59
DX: U07.1 COVID-19 (principal); H60.92 Unspecified otitis externa, left ear; F41.8 Other specified anxiety disorders; F12.90 Cannabis use, unspecified, uncomplicated
CPT/HCPCS: 87635; 99283

== ENCOUNTER 2022-10-07 14:53 | Emergency (ER) | payer OTHER ==
[2022-10-07 15:12] VITALS: TEMP 98.8
[2022-10-07] MEDS ORDERED: SODIUM CHLORIDE 0.9% 1,000 ML IV STA (15:24)
--- NOTE | 2022-10-07 15:45 | ED ---
Abdominal Pain HPI - General Source: patient, RN notes reviewed Mode of arrival: ambulatory Limitations: no limitations <Leon Borja - Last Filed: 10/07/22 15:44> <Lokesh Julien - Last Filed: 10/07/22 18:09> - General Chief Complaint: Abdominal Pain Stated Complaint: NVD Time Seen by Provider: 10/07/22 15:20 - History of Present Illness Initial Comments: 27-year-old female presents emergency Department with chief complaint of abdominal pain. Patient states that over the last 3 days she is lower abdominal pain when she eats. She has no upper abdominal pain states that she starts getting cramping, diarrhea patient denies any dysuria hematuria denies any chance states that her last menstrual cycle was proximal month ago. Patient denies any vomiting states that she can drink fluids without issues. Denies history of appendectomy or cholecystomy no prior GI disorders. (Leon Borja) - Related Data Home Medications Medication Instructions Recorded Confirmed No Known Home Medications 10/07/22 10/07/22 Allergies Allergy/AdvReac Type Severity Reaction Status Date / Time No Known Allergies Allergy Verified 10/07/22 17:27 Review of Systems ROS Other: All systems not noted in ROS Statement are negative. <Leon Borja - Last Filed: 10/07/22 15:44> ROS Other: All systems not noted in ROS Statement are negative. <Lokesh Julien - Last Filed: 10/07/22 18:09> ROS Statement: Those systems with pertinent positive or pertinent negative responses have been documented in the HPI. 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 History of Any Multi-Drug Resistant Organisms: MRSA Date of last positivie culture/infection: 12/02/19 MDRO Source:: MRSA LEFT AXILLA Past Surgical History: No Surgical Hx Reported Past Anesthesia/Blood Transfusion Reactions: No Reported Reaction Additional Past Anesthesia/Blood Transfusion Reaction / Comment(s): NO ANESTH HX Past Psychological History: Anxiety, Depression Smoking Status: Current every day smoker Past Alcohol Use History: None Reported Past Drug Use History: Marijuana - Past Family History Father History Unknown: Yes Additional Family Medical History / Comment(s): Father resides in [facility] and pt does not know his medical hx. Mother Family Medical History: No Reported History Additional Family Medical History / Comment(s): 4 brain anyresms <HuongLeon Judi - Last Filed: 10/07/22 15:44> General Exam Limitations: no limitations General appearance: alert, in no apparent distress Head exam: Present: atraumatic, normocephalic, normal inspection ENT exam: Present: normal exam, mucous membranes moist Neck exam: Present: normal inspection, full ROM. Absent: tenderness, meningismus, lymphadenopathy Respiratory exam: Present: normal lung sounds bilaterally. Absent: respiratory distress, wheezes, rales, rhonchi, stridor Cardiovascular Exam: Present: regular rate, normal rhythm, normal heart sounds. Absent: systolic murmur, diastolic murmur, rubs, gallop, clicks GI/Abdominal exam: Present: soft, tenderness (Minimal lower), normal bowel sounds. Absent: distended, guarding, rebound, rigid Back exam: Absent: CVA tenderness (R), CVA tenderness (L) <Leon Borja - Last Filed: 10/07/22 15:44> Course <Lokesh Julien - Last Filed: 10/07/22 18:09> Vital Signs 10/07/22 15:09 Temperature 98.8 F Pulse Rate 84 Respiratory 20 Rate Blood Pressure 127/75 O2 Sat by Pulse 99 Oximetry - Reevaluation(s) Reevaluation #1: 10/07/22 17:54 Patient denies development of any new symptoms while in the ED. Patient's abdomen is currently soft and nontender on exam. Patient is aware of her test results, and she feels comfortable being discharged home at this time. Patient was counseled about early and abdominal pain/nausea/diarrhea. Patient states that she intends to follow up with Dr. Griffith (who is her OBGYN doctor) for her . Patient was clearly explained return and follow-up instructions, and she feels comfortable with this plan. (Lokesh Julien) Medical Decision Making - Lab Data Result diagrams: 10/07/22 15:45 10/07/22 15:45 <Lokesh Julien - Last Filed: 10/07/22 18:09> - Medical Decision Making Was pt. sent in by a medical professional or institution (Dr., PA, REGISTERED TRAVEL NURSE, urgent care, hospital, or snf...) When possible be specific @ -No Did you speak to anyone other than the patient for history (EMS, parent, family, police, friend...)? What history was obtained from this source @ -No Did you review nursing and triage notes (agree or disagree)? Why? @ -I reviewed and agree with nursing and triage notes Were old charts reviewed (outside hosp., previous admission, EMS record, old EKG, old radiological studies, urgent care reports/EKG's, snf records)? Report findings @ -No old charts were reviewed Differential Diagnosis (chest pain, altered mental status, abdominal pain women, abdominal pain men, vaginal bleeding, weakness, fever, dyspnea, syncope, headache, dizziness, GI bleed, back pain, seizure, CVA, palpatations, mental health)? @ -Differential Abdominal Pain Women: Appendicitis, diverticulosis, pancreatitis, hepatitis, UTI, gastroenteritis, bowel obstruction, constipation, inflammatory bowel, hepatitis, peptic ulcer disease, ovarian torsion, kidney stone, , ectopic , ovarian cyst, diarrhea, this is not meant to be an all-inclusive list EKG interpreted by me (3pts min.). @ -None done X-rays interpreted by me (1pt min.). @ -Negative KUB CT interpreted by me (1pt min.). @ -None done U/S interpreted by me (1pt. min.). @ -No What testing was considered but not performed or refused? (CT, X-rays, U/S, labs)? Why? @ -None What meds were considered but not given or refused? Why? @ -None Did you discuss the management of the patient with other professionals (professionals i.e. MARY JANE Ibanez, REGISTERED TRAVEL NURSE, lab, RT, psych nurse, social sciences research scientist, petrol tanker driver, teacher, loan officer assistant, special education case manager)? Give summary @ -No Was smoking cessation discussed for >3mins.? @ -No Was critical care preformed (if so, how long)? @ -No Were there social determinants of health that impacted care today? How? (Homelessness, low income, unemployed, alcoholism, drug addiction, transportation, low edu. Level, literacy, decrease access to med. care, long-term, rehab)? @ -No Was there de-escalation of care discussed even if they declined (Discuss DNR or withdrawal of care, Hospice)? DNR status @ -No What co-morbidities impacted this encounter? (DM, HTN, Smoking, COPD, CAD, Cancer, CVA, ARF, Chemo, Hep., AIDS, mental health diagnosis, sleep apnea, morbid obesity)? @ -None Was patient admitted / discharged? Hospital course, mention meds given and route, prescriptions, significant lab abnormalities, going to OR and other pertinent info. @ -Patient has a benign abdominal exam in the ED. Patient is afebrile and without leukocytosis. Patient's labs were reviewed and are fairly unremarkable other than having a positive test. Patient's blood type is B+. Patient's OB ultrasound demonstrates an uncomplicated 8 week and 1 day gestation. I do not suspect an emergent medical condition. Will discharge patient home. Undiagnosed new problem with uncertain prognosis? @ -No Drug Therapy requiring intensive monitoring for toxicity (Heparin, Nitro, Insulin, Cardizem)? @ -No Were any procedures done? @ -No Diagnosis/symptom? @ -Abdominal pain, nausea and diarrhea Acute, or Chronic, or Acute on Chronic? @ -Acute Uncomplicated (without systemic symptoms) or Complicated (systemic symptoms)? @ -Uncomplicated Side effects of treatment? @ -No Exacerbation, Progression, or Severe Exacerbation? @ -No Poses a threat to life or bodily function? How? (Chest pain, [place], [place], pneumonia, PE, COPD, DKA, ARF, appy, cholecystitis, CVA, Diverticulitis, Homicidal, Suicidal, threat to staff... and all critical care pts) @ -No Diagnosis/symptom? @ -Early Acute, or Chronic, or Acute on Chronic? @ -Acute Uncomplicated (without systemic symptoms) or Complicated (systemic symptoms)? @ -Uncomplicated Side effects of treatment? @ -none Exacerbation, Progression, or Severe Exacerbation] @ -no Poses a threat to life or bodily function? @ -no (Lokesh Julien) - Lab Data Lab Results 10/07/22 10/07/22 10/07/22 Range/Units 15:45 15:45 15:45 WBC 7.3 (3.8-10.6) k/uL RBC 3.89 (3.80-5.40) m/uL Hgb 11.8 (11.4-16.0) gm/dL Hct 34.5 (34.0-46.0) % MCV 88.8 (80.0-100.0) fL MCH 30.2 (25.0-35.0) pg MCHC 34.1 (31.0-37.0) g/dL RDW 12.7 (11.5-15.5) % Plt Count 204 (150-450) k/uL MPV 8.9 Neutrophils % 63 % Lymphocytes % 28 % Monocytes % 5 % Eosinophils % 1 % Basophils % 1 % Neutrophils # 4.6 (1.3-7.7) k/uL Lymphocytes # 2.1 (1.0-4.8) k/uL Monocytes # 0.4 (0-1.0) k/uL Eosinophils # 0.1 (0-0.7) k/uL Basophils # 0.1 (0-0.2) k/uL Sodium (137-145) mmol/L Potassium (3.5-5.1) mmol/L Chloride (98-107) mmol/L Carbon Dioxide (22-30) mmol/L Anion Gap mmol/L BUN (7-17) mg/dL Creatinine (0.52-1.04) mg/dL Est GFR (CKD-EPI)AfAm (>60 ml/min/1.73 sqM) Est GFR (CKD-EPI)NonAf (>60 ml/min/1.73 sqM) Glucose (74-99) mg/dL Plasma Lactic Acid Rosas (0.7-2.0) mmol/L Calcium (8.4-10.2) mg/dL Total Bilirubin (0.2-1.3) mg/dL AST (14-36) U/L ALT (4-34) U/L Alkaline Phosphatase (38-126) U/L Total Protein (6.3-8.2) g/dL Albumin (3.5-5.0) g/dL Amylase (30-110) U/L Lipase (23-300) U/L HCG, Quant mIU/mL Urine Color Yellow Urine Appearance Clear (Clear) Urine pH 6.0 (5.0-8.0) Ur Specific Roscoe 1.016 (1.001-1.035) Urine Protein Negative (Negative) Urine Glucose (UA) Negative (Negative) Urine Ketones 2+ H (Negative) Urine Blood Negative (Negative) Urine Nitrite Negative (Negative) Urine Bilirubin Negative (Negative) Urine Urobilinogen <2.0 (<2.0) mg/dL Ur Leukocyte Esterase Negative (Negative) Urine HCG, Qual Detected (Not Detectd) 10/07/22 10/07/22 10/07/22 Range/Units 15:45 15:45 15:45 WBC (3.8-10.6) k/uL RBC (3.80-5.40) m/uL Hgb (11.4-16.0) gm/dL Hct (34.0-46.0) % MCV (80.0-100.0) fL MCH (25.0-35.0) pg MCHC (31.0-37.0) g/dL RDW (11.5-15.5) % Plt Count (150-450) k/uL MPV Neutrophils % % Lymphocytes % % Monocytes % % Eosinophils % % Basophils % % Neutrophils # (1.3-7.7) k/uL Lymphocytes # (1.0-4.8) k/uL Monocytes # (0-1.0) k/uL Eosinophils # (0-0.7) k/uL Basophils # (0-0.2) k/uL Sodium 137 (137-145) mmol/L Potassium 3.5 (3.5-5.1) mmol/L Chloride 106 (98-107) mmol/L Carbon Dioxide 24 (22-30) mmol/L Anion Gap 7 mmol/L BUN 9 (7-17) mg/dL Creatinine 0.37 L (0.52-1.04) mg/dL Est GFR (CKD-EPI)AfAm >90 (>60 ml/min/1.73 sqM) Est GFR (CKD-EPI)NonAf >90 (>60 ml/min/1.73 sqM) Glucose 79 (74-99) mg/dL Plasma Lactic Acid Rosas 0.7 (0.7-2.0) mmol/L Calcium 9.3 (8.4-10.2) mg/dL Total Bilirubin 0.6 (0.2-1.3) mg/dL AST 20 (14-36) U/L ALT 19 (4-34) U/L Alkaline Phosphatase 41 (38-126) U/L Total Protein 7.0 (6.3-8.2) g/dL Albumin 4.5 (3.5-5.0) g/dL Amylase 86 (30-110) U/L Lipase 40 (23-300) U/L HCG, Quant 95024.0 mIU/mL Urine Color Urine Appearance (Clear) Urine pH (5.0-8.0) Ur Specific Roscoe (1.001-1.035) Urine Protein (Negative) Urine Glucose (UA) (Negative) Urine Ketones (Negative) Urine Blood (Negative) Urine Nitrite (Negative) Urine Bilirubin (Negative) Urine Urobilinogen (<2.0) mg/dL Ur Leukocyte Esterase (Negative) Urine HCG, Qual (Not Detectd) - Radiology Data KUB x-ray: Nonacute abdomen. No change. OB ultrasound: The ultrasound gestational age is 8 weeks and 1 day. No definite complicating process seen. (Lokesh Julien) Disposition <Leon Borja - Last Filed: 10/07/22 15:44> Is patient prescribed a controlled substance at d/c from ED?: No Time of Disposition: 18:09 <Lokesh Julien - Last Filed: 10/07/22 18:09> Clinical Impression: Abdominal pain, Diarrhea, Early stage of Disposition: HOME SELF-CARE Condition: Stable Instructions (If sedation given, give patient instructions): Abdominal Pain in (ED), Acute Diarrhea (ED) Additional Instructions: Return to the ER immediately should you develop new or worsening pain, a fever, persistent vomiting, vaginal bleeding, feeling dizzy or faint, shortness of breath, or new or worsening symptoms. Follow up closely with your PHLEBOTOMY PROGRAM COORDINATOR doctor. Referrals: Burke Cope MD [Primary Care Provider] - 1-2 days Sinai Griffith MD [STAFF PHYSICIAN] - 1-2 days
[2022-10-07 16:02] LABS: Basophils # (A) 0.1 k/uL (0-0.2); Basophils % (A) 1 %; Eosinophils # (A) 0.1 k/uL (0-0.7); Eosinophils % (A) 1 %; HCT 34.5 % (34.0-46.0); HGB 11.8 gm/dL (11.4-16.0); Lymphocytes # (A) 2.1 k/uL (1.0-4.8); Lymphocytes % (A) 28 %; MCH 30.2 pg (25.0-35.0); MCHC 34.1 g/dL (31.0-37.0); MCV 88.8 fL (80.0-100.0); Mean Platelet Volume 8.9; Monocytes # (A) 0.4 k/uL (0-1.0); Monocytes % (A) 5 %; Neutrophils # (A) 4.6 k/uL (1.3-7.7); Neutrophils % (A) 63 %; Platelet Count 204 k/uL (150-450); RBC 3.89 m/uL (3.80-5.40); RDW 12.7 % (11.5-15.5); WBC 7.3 k/uL (3.8-10.6)
[2022-10-07 16:06] LABS: Appearance,Urine Clear (Clear); Bilirubin,Urine Negative (Negative); Blood,Urine Negative (Negative); Color,Urine Yellow; Glucose,Urine (UA) Negative (Negative); Leukocyte Esterase,Urine Negative (Negative); Nitrite,Urine Negative (Negative); Protein,Urine Negative (Negative); Specific Gravity,Urine 1.016 (1.001-1.035); Urobilinogen,Urine <2.0 mg/dL (<2.0)
[2022-10-07 16:13] LABS: ALT 19 U/L (4-34); AST 20 U/L (14-36); African American GFR (CKD) >90 (>60 ml/min/1.73 sqM); Albumin 4.5 g/dL (3.5-5.0); Alkaline Phosphatase 41 U/L (38-126); Amylase 86 U/L (30-110); Anion Gap 7 mmol/L; Blood Urea Nitrogen 9 mg/dL (7-17); Calcium 9.3 mg/dL (8.4-10.2); Carbon Dioxide 24 mmol/L (22-30); Chloride 106 mmol/L (98-107); Glucose 79 mg/dL (74-99); Lipase 40 U/L (23-300); Non-African American GFR(CKD) >90 (>60 ml/min/1.73 sqM); Potassium 3.5 mmol/L (3.5-5.1); Sodium 137 mmol/L (137-145); Total Bilirubin 0.6 mg/dL (0.2-1.3)
[2022-10-07 16:19] LABS: Ketones,Urine 2+ (Negative)
--- NOTE | 2022-10-07 16:56 | XR ---
EXAMINATION TYPE: XR KUB DATE OF EXAM: 10/07/2022 COMPARISON: 12/28/2012 HISTORY: Pain TECHNIQUE: Single view FINDINGS: Bowel gas pattern is normal. No sign of intestinal obstruction or pneumoperitoneum. Fecal p attern is normal. No pathologic calcifications over the kidneys. Lung bases are clear. No sign of a m ass. IMPRESSION: Nonacute abdomen. No change.
--- NOTE | 2022-10-07 17:13 | US ---
EXAMINATION TYPE: Transabdominal DATE OF EXAM: 10/07/2022 4:59 PM COMPARISON: NONE CLINICAL HISTORY: pain. N/V/D, abd pain, , patient was unaware she was EXAM PERFORMED: OBTA/TV EXAM MEASUREMENTS: GESTATIONAL AGE / DATING Physician Established: Not yet established Dates by LMP: LMP unknown Dates by First Scan: No previous this is first scan Dates by Current Scan for: ( 8 weeks/1 days) EDC: 05/18/2023 MATERNAL ANATOMY Uterus: 10.5 x 6.2 x 6.0cm Right Ovary: 2.6 x 1.9 x 2.2cm Left Ovary: 2.4 x 1.8 x 1.8cm Post CDS / Adnexa: mild rt adnexa fluid Presence of free fluid: within rt adnexa and cul-de-sac Presence of corpus luteal cyst: yes, right ovary = 2.0cm Presence of subchorionic bleed: no GESTATION / SURVEY CRL: 1.6cm (8 weeks/1 days) MSD: wnl Yolk Sac (normal less than 6mm): 0.3cm Heart Rate: 167 bpm Rhythm: Normal IUP: Viable IUP Date of LMP: 09/25/2022 Beta HcG (if available): pending IMPRESSION: The ultrasound gestational age is 8 weeks and 1 day. No definite complicating process seen.
[2022-10-07 18:14] VITALS: BP 120/70; PULSE 74; RESP 18
== END 2022-10-07 18:18 | disposition home or self-care (01) ==
LOC: EC 14:53
DX: O26.891 Other specified pregnancy related conditions, first trimester (principal); R10.30 Lower abdominal pain, unspecified; R19.7 Diarrhea, unspecified; O99.341 Other mental disorders complicating pregnancy, first trimester; F41.9 Anxiety disorder, unspecified; F32.A Depression, unspecified; O99.331 Smoking (tobacco) complicating pregnancy, first trimester; F17.200 Nicotine dependence, unspecified, uncomplicated; F12.90 Cannabis use, unspecified, uncomplicated
CPT/HCPCS: 36415; 74018; 76801; 76817; 80053; 81003; 81025; 82150; 83605; 83690; 84702; 85025; 86850; 86900; 86901; 96360; 99284

== ENCOUNTER 2023-01-21 08:13 | Outpatient (CLI) | payer OTHER ==
[2023-01-21] MEDS ORDERED: METOCLOPRAMIDE 5 MG/ML 2 ML VIAL IVP STA (08:40)
[2023-01-21] MEDS ORDERED: LACTATED RINGERS 1,000 ML IV SCH (08:45)
[2023-01-21] MEDS ORDERED: FAMOTIDINE 20 MG/2 ML VIAL IV SCH (09:00)
[2023-01-21 09:02] LABS: Basophils % (A) 0 %; Eosinophils # (A) 0.1 k/uL (0-0.7); Eosinophils % (A) 1 %; HCT 33.1 % (34.0-46.0); HGB 11.2 gm/dL (11.4-16.0); Lymphocytes # (A) 0.6 k/uL (1.0-4.8); Lymphocytes % (A) 6 %; MCH 30.8 pg (25.0-35.0); MCHC 33.8 g/dL (31.0-37.0); Mean Platelet Volume 8.7; Monocytes # (A) 0.3 k/uL (0-1.0); Monocytes % (A) 3 %; Neutrophils # (A) 10.1 k/uL (1.3-7.7); Neutrophils % (A) 90 %; Platelet Count 246 k/uL (150-450); RBC 3.64 m/uL (3.80-5.40); WBC 11.2 k/uL (3.8-10.6)
[2023-01-21 09:13] LABS: African American GFR (CKD) >90 (>60 ml/min/1.73 sqM); Anion Gap 11 mmol/L; Blood Urea Nitrogen 13 mg/dL (7-17); Calcium 8.1 mg/dL (8.4-10.2); Carbon Dioxide 21 mmol/L (22-30); Chloride 105 mmol/L (98-107); Glucose 113 mg/dL (74-99); Non-African American GFR(CKD) >90 (>60 ml/min/1.73 sqM); Potassium 3.4 mmol/L (3.5-5.1); Sodium 137 mmol/L (137-145)
[2023-01-21 09:51] LABS: Appearance,Urine Clear (Clear); Bilirubin,Urine Negative (Negative); Blood,Urine Negative (Negative); Color,Urine Yellow; Glucose,Urine (UA) Negative (Negative); Ketones,Urine 4+ (Negative); Leukocyte Esterase,Urine Negative (Negative); Nitrite,Urine Negative (Negative); PH, Urine 5.5 (5.0-8.0); Protein,Urine Trace (Negative); Specific Gravity,Urine 1.027 (1.001-1.035); Urobilinogen,Urine <2.0 mg/dL (<2.0)
[2023-01-21] MEDS ORDERED: ONDANSETRON 4 MG/2 ML VIAL IVP STA (10:40)
[2023-01-21] MEDS ORDERED: POTASSIUM CHLORIDE 10 MEQ in WATER FOR INJECTION 1 100ML.BAG IVPB STA (10:52)
[2023-01-21 15:13] VITALS: BP 122/67; PULSE 93; RESP 17; TEMP 97.4
--- NOTE | 2023-01-29 14:09 | P.MSEPDOC ---
Presenting Problems - Arrival Data Date of Arrival on Unit: 01/21/23 Time of Arrival on Unit: 08:13 Mode of Transport: Ambulatory - Complaint OB-Reason for Admission/Chief Complaint: Acute Nausea/Vomiting Comment: pt presents to triage for n/v that started at 0100 this am, vomited at least 10 times, and now dry heaving Medical History - Information : 6 Para: 5 Term: 5 : 0 Abortions: Spontaneous or Elective: 0 Number of Living Children: 5 - Gestational Age Gestational Age by FATMATA (wks/days): 23 Weeks and 5 Days - History Complications: Smoker Comment: thc use during Review of Systems - Review of Systems Constitutional: No problems Breast: No problems ENT: No problems Cardiovascular: No problems Respiratory: No problems Gastrointestinal: No problems Genitourinary: No problems Musculoskeletal: No problems Neurological: No problems Skin: No problems Vital Signs - Temperature Temperature: 97.4 F Temperature Source: Temporal Artery Scan - Pulse Right Brachial Pulse Rate: 93 Pulse Assessment Method: Automatic Cuff - Respirations Respiratory Rate: 17 Oxygen Delivery Method: Room Air O2 Sat by Pulse Oximetry: 98 - Blood Pressure Right Arm Blood Pressure: 122/67 Blood Pressure Mean: 85 Blood Pressure Source: Automatic Cuff Medical Screen Scoring - Assessment - Baby A Baseline FHR: 145 Heart Rate - NICHD Category: Category I (Normal) Physician Notification - Physician Notified Physician Notified Date: 01/21/23 Physician Notified Time: 08:37 Physician: Colette Javier Order Received: Yes - Notification Comment Comment: pt given IVF, obtained UA, cbc and bmp, given pepcid and zofran and KCL iv, pt keeping crackers and water down, escript for zofran and pepcid sent to [facility] at [facility] Maternal Triage Index - Maternal Triage Index Presenting for scheduled procedure w/no complaint: No - Stat/Priority 1 Stat Priority 1: No - Urgent/Priority 2 Urgent Priority 2: No - Prompt/Priority 3 Prompt Priority 3: No - Non-Urgent/Priority 4 Non-Urgent Priority 4: Yes Criteria Met for Priority 4: pt presents to triage for n/v that started at 0100 this am, vomited at least 10 times, and now dry heaving Disposition - Disposition OB Disposition: Triage, Discharge to home, Written follow up instructions reviewed Discharge Date: 01/21/23 Discharge Time: 13:20 I agree with the RN Medical Screening Exam: Yes Physician's MSE Comment: I have neither seen nor examined the patient Case reviewed; plan agreed upon as documented in EMR&OBIX.: Yes Diagnosis: RELATED CONDITIONS, UNSPECIFIED, SECOND TRIMESTER
== END 2023-01-21 13:20 | disposition home or self-care (01) ==
LOC: FBPOP 08:13
PROVIDERS: ATTEND Obstetrics & Gynecology
DX: O26.892 Other specified pregnancy related conditions, second trimester (principal); Z3A.23 23 weeks gestation of pregnancy; O99.333 Smoking (tobacco) complicating pregnancy, third trimester; F17.200 Nicotine dependence, unspecified, uncomplicated
CPT/HCPCS: 96361; 96365; 96375; 36415; 80048; 85025; 81003; G0463; J2765; J2405; J3480; 99214

== ENCOUNTER 2023-03-07 09:39 | Outpatient (CLI) | payer OTHER ==
--- NOTE | 2023-03-07 12:07 | US ---
EXAMINATION TYPE: US OB limited DATE OF EXAM: 03/07/2023 COMPARISON: NONE CLINICAL INDICATION: Female, 27 years old with history of bleeding, placenta previa; bleeding, placen ta previa. EXAM PERFORMED: Transabdominal (TA) GESTATIONAL AGE / DATING No growth performed on today?s study per ordering physician SURVEY PLACENTA: Anterior PREVIA: Tip of placenta is right at the cervix. Ultrasound evidence of abruption? No PRESENTATION: Vertex HEART RATE: 153 bpm RHYTHM: Normal IMPRESSION: Anterior, marginal placenta previa noted.
[2023-03-07 12:29] VITALS: BP 120/75; PULSE 93; RESP 16; TEMP 97.2
--- NOTE | 2023-03-25 07:25 | P.MSEPDOC ---
Presenting Problems - Arrival Data Date of Arrival on Unit: 03/07/23 Time of Arrival on Unit: 09:39 Mode of Transport: Portable - Complaint OB-Reason for Admission/Chief Complaint: Vaginal Bleeding Medical History - Information : 6 Para: 5 Term: 5 : 0 Abortions: Spontaneous or Elective: 0 Number of Living Children: 5 - Gestational Age Gestational Age by FATMATA (wks/days): 30 Weeks and 1 Days - History Complications: Placenta Previa Review of Systems - Review of Systems Constitutional: No problems Breast: No problems ENT: No problems Cardiovascular: No problems Respiratory: No problems Gastrointestinal: No problems Genitourinary: No problems Musculoskeletal: No problems Neurological: No problems Skin: No problems Vital Signs - Temperature Temperature: 97.2 F Temperature Source: Temporal Artery Scan - Pulse Right Sitting Pulse Rate: 93 Pulse Assessment Method: Automatic Cuff - Respirations Respiratory Rate: 16 Oxygen Delivery Method: Room Air - Blood Pressure Right Arm Blood Pressure: 120/75 Blood Pressure Mean: 90 Blood Pressure Source: Automatic Cuff Medical Screen Scoring - Assessment - Baby A Baseline FHR: 145 Heart Rate - NICHD Category: Category I (Normal) NST: Reactive Physician Notification - Physician Notified Physician Notified Date: 03/07/23 Physician Notified Time: 11:30 Physician: Colette Javier New Order Received: Yes (d/c home) Maternal Triage Index - Urgent/Priority 2 Urgent Priority 2: Yes Provider Notified: Colette Javier Provider Notified Time: 09:50 Criteria Met for Priority 2: Known placenta previa, reactive nst, occasional, irregular contractions not felt by pt or palpated, no active bleeding noted with spec exam Disposition - Disposition OB Disposition: Discharge to home, Written follow up instructions reviewed Discharge Date: 03/07/23 Discharge Time: 12:20 I agree with the RN Medical Screening Exam: Yes Case reviewed; plan agreed upon as documented in EMR&OBIX.: Yes Diagnosis: MATERNAL CARE FOR PROBLEM, UNSP, THIRD * DO NOT USE *
== END 2023-03-07 12:20 | disposition home or self-care (01) ==
LOC: FBPOP 09:39
PROVIDERS: ATTEND Obstetrics & Gynecology
DX: O36.93X1 Maternal care for fetal problem, unspecified, third trimester, fetus 1 (principal); Z3A.30 30 weeks gestation of pregnancy; Z88.5 Allergy status to narcotic agent
CPT/HCPCS: 59025; 76815; G0463; 99215

== ENCOUNTER 2023-03-21 09:31 | Outpatient (CLI) | payer OTHER ==
[2023-03-21 09:56] LABS: Basophils % (A) 0 %; Eosinophils # (A) 0.3 k/uL (0-0.7); Eosinophils % (A) 3 %; HCT 30.3 % (34.0-46.0); HGB 10.1 gm/dL (11.4-16.0); Lymphocytes # (A) 2.8 k/uL (1.0-4.8); Lymphocytes % (A) 27 %; MCH 30.4 pg (25.0-35.0); MCHC 33.3 g/dL (31.0-37.0); MCV 91.4 fL (80.0-100.0); Mean Platelet Volume 9.3; Monocytes # (A) 0.5 k/uL (0-1.0); Monocytes % (A) 5 %; Neutrophils # (A) 6.1 k/uL (1.3-7.7); Neutrophils % (A) 61 %; Platelet Count 306 k/uL (150-450); RBC 3.31 m/uL (3.80-5.40); RDW 12.8 % (11.5-15.5); WBC 10.1 k/uL (3.8-10.6)
[2023-03-21] MEDS ORDERED: BETAMET ACET-BETAMETH SOD PHOS 6 MG/ML MDV IM SCH (10:00)
[2023-03-21] MEDS ORDERED: ONDANSETRON 4 MG/2 ML VIAL IVP STA (10:04)
--- NOTE | 2023-03-23 18:25 | P.MSEPDOC ---
Presenting Problems - Arrival Data Date of Arrival on Unit: 03/21/23 Time of Arrival on Unit: 09:30 Mode of Transport: Wheelchair - Complaint OB-Reason for Admission/Chief Complaint: Vaginal Bleeding Comment: patient presents to significant vaginal bleeding, 3 large amounts in toilet at home. diaper on at arrival with moderate amount of bleeding noted on arrival. Patient states she is gushing blood, patient has known partial previa. Patient scheduled for primary in april for previa Medical History - Information : 6 Para: 5 - Gestational Age Gestational Age by FATMATA (wks/days): 32 Weeks and 1 Days - History Complications: Placenta Previa Review of Systems - Review of Systems Constitutional: No problems Breast: No problems ENT: No problems Cardiovascular: No problems Respiratory: No problems Gastrointestinal: No problems Genitourinary: No problems Musculoskeletal: No problems Neurological: No problems Skin: No problems Physician Notification - Notification Comment Comment: Dr Javier at bedside, exam complete per Dr Javier, FHT 135 no decels moderate variability. IV started with LR infusing per DR simmons. Patient transferred via [facility] Maternal Triage Index - Maternal Triage Index Presenting for scheduled procedure w/no complaint: No - Stat/Priority 1 Stat Priority 1: No - Urgent/Priority 2 Urgent Priority 2: Yes Provider Notified: Colette Javier Provider Notified Time: 09:35 Criteria Met for Priority 2: patient presents to significant vaginal bleeding, 3 large amounts in toilet at home. diaper on at arrival with moderate amount of bleeding noted on arrival. Patient states she is gushing blood, patient has known partial previa. Patient scheduled for primary in april for previa Disposition - Disposition OB Disposition: Transfer to other dept./facility Discharge Date: 03/21/23 Discharge Time: 12:52 I agree with the RN Medical Screening Exam: Yes Case reviewed; plan agreed upon as documented in EMR&OBIX.: Yes Diagnosis: SUPERVISION OF OTHER HIGH RISK PREGNANCIES, THIRD TRIMESTER
== END 2023-03-21 12:52 ==
LOC: FBPOP 09:31
PROVIDERS: ATTEND Obstetrics & Gynecology
DX: O09.93 Supervision of high risk pregnancy, unspecified, third trimester (principal); Z3A.32 32 weeks gestation of pregnancy; Z88.5 Allergy status to narcotic agent
CPT/HCPCS: 59025; 96361; 96374; 96372; 36415; 86900; 86901; 85025; 86850; G0463; J2405; J0702; 99214

== ENCOUNTER 2023-10-10 05:53 | Emergency (ER) | payer OTHER ==
[2023-10-10] MEDS ORDERED: FAMOTIDINE 20 MG/2 ML VIAL IV STA (06:30)
[2023-10-10] MEDS ORDERED: MAG HYDROX/AL HYDROX/SIMETH 30 ML, HYOSCYAMINE ELIXIR 10 ML, LIDOCAINE VISCOUS 2% 10 ML PO STA ×3 (06:30)
[2023-10-10 06:39] VITALS: RESP 18; TEMP 97.6
[2023-10-10 06:39] LABS: Basophils % (A) 0 %; Eosinophils # (A) 0.2 k/uL (0-0.7); Eosinophils % (A) 3 %; HCT 36.8 % (34.0-46.0); HGB 12.6 gm/dL (11.4-16.0); Lymphocytes # (A) 1.9 k/uL (1.0-4.8); Lymphocytes % (A) 23 %; MCH 30.9 pg (25.0-35.0); MCHC 34.1 g/dL (31.0-37.0); MCV 90.6 fL (80.0-100.0); Mean Platelet Volume 8.7; Monocytes # (A) 0.3 k/uL (0-1.0); Monocytes % (A) 4 %; Neutrophils # (A) 5.5 k/uL (1.3-7.7); Neutrophils % (A) 68 %; Platelet Count 223 k/uL (150-450); RBC 4.07 m/uL (3.80-5.40); RDW 12.3 % (11.5-15.5); WBC 8.1 k/uL (3.8-10.6)
[2023-10-10 06:54] LABS: ALT 34 U/L (4-34); AST 31 U/L (14-36); African American GFR (CKD) >90 (>60 ml/min/1.73 sqM); Albumin 4.3 g/dL (3.5-5.0); Alkaline Phosphatase 67 U/L (38-126); Anion Gap 8 mmol/L; Blood Urea Nitrogen 13 mg/dL (7-17); Calcium 9.5 mg/dL (8.4-10.2); Carbon Dioxide 24 mmol/L (22-30); Chloride 110 mmol/L (98-107); Glucose 117 mg/dL (74-99); Lipase 64 U/L (23-300); Non-African American GFR(CKD) >90 (>60 ml/min/1.73 sqM); Potassium 4.3 mmol/L (3.5-5.1); Sodium 142 mmol/L (137-145); Total Bilirubin 0.4 mg/dL (0.2-1.3)
--- NOTE | 2023-10-10 06:56 | ED ---
Abdominal Pain HPI - General Chief Complaint: Abdominal Pain Stated Complaint: abd pain Time Seen by Provider: 10/10/23 06:30 Source: patient, RN notes reviewed Mode of arrival: ambulatory Limitations: no limitations - History of Present Illness Initial Comments: 28-year-old female presents with chief complaint of upper abdominal pain, left- sided abdominal pain. Patient states has been going on for long period time after her . She states she also had a hysterectomy at that point. Patient states is a burning sensation in her upper abdomen left side. Patient denies any nausea vomit diarrhea constipation no dysuria no hematuria patient of fers no other associated symptoms - Related Data Home Medications Medication Instructions Recorded Confirmed Ondansetron [Zofran] 4 mg PO Q8HR PRN 01/21/23 03/21/23 Vit No.180/Iron/Folic 1 tab PO DAILY 01/21/23 03/21/23 [ Plus Vitamin-Mineral] Omeprazole [PriLOSEC] 10 mg PO DAILY 03/07/23 03/21/23 Previous Rx's Medication Instructions Recorded Lidocaine 5% Patch [Lidoderm 5% 1 patch TOPICAL DAILY PRN #30 patch 06/16/23 Patch] Famotidine [Pepcid] 20 mg PO BID #28 tablet 10/10/23 Sucralfate [Carafate] 1 gm PO BID #30 tablet 10/10/23 Allergies Allergy/AdvReac Type Severity Reaction Status Date / Time codeine Allergy Hallucinati Verified 10/10/23 06:14 ons Review of Systems ROS Statement: Those systems with pertinent positive or pertinent negative responses have been documented in the HPI. ROS Other: All systems not noted in ROS Statement are negative. 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 History of Any Multi-Drug Resistant Organisms: None Reported Date of last positivie culture/infection: 12/02/19 MDRO Source:: MRSA LEFT AXILLA Past Surgical History: Section, Hysterectomy Past Anesthesia/Blood Transfusion Reactions: No Reported Reaction Additional Past Anesthesia/Blood Transfusion Reaction / Comment(s): NO ANESTH HX Past Psychological History: Anxiety, Depression Smoking Status: Vaper Past Alcohol Use History: Rare Past Drug Use History: Marijuana - Past Family History Father History Unknown: Yes Additional Family Medical History / Comment(s): Father resides in [facility] and pt does not know his medical hx. Mother Family Medical History: No Reported History Additional Family Medical History / Comment(s): 4 brain anyresms General Exam Limitations: no limitations General appearance: alert, in no apparent distress Head exam: Present: atraumatic, normocephalic, normal inspection Eye exam: Present: normal appearance, PERRL, EOMI. Absent: scleral icterus, conjunctival injection, periorbital swelling ENT exam: Present: normal exam, mucous membranes dry, mucous membranes moist Neck exam: Present: normal inspection, full ROM. Absent: tenderness, meningismus, lymphadenopathy Respiratory exam: Present: normal lung sounds bilaterally. Absent: respiratory distress, wheezes, rales, rhonchi, stridor Cardiovascular Exam: Present: regular rate, normal rhythm, normal heart sounds. Absent: systolic murmur, diastolic murmur, rubs, gallop, clicks GI/Abdominal exam: Present: soft, tenderness, normal bowel sounds. Absent: distended, guarding, rebound, rigid Back exam: Absent: CVA tenderness (R), CVA tenderness (L) Neurological exam: Present: alert, oriented X3 Skin exam: Present: warm, dry, intact, normal color. Absent: rash Course Vital Signs 10/10/23 06:14 Temperature 97.6 F Pulse Rate 72 Respiratory 18 Rate Blood Pressure 119/81 O2 Sat by Pulse 96 Oximetry Medical Decision Making - Medical Decision Making Was pt. sent in by a medical professional or institution (MARY JANE Ibanez, RAILRO[employer] CAR CLEANING SUPERVISOR, urgent care, hospital, or prison...) When possible be specific @ -No Did you speak to anyone other than the patient for history (EMS, parent, family, police, friend...)? What history was obtained from this source @ -No Did you review nursing and triage notes (agree or disagree)? Why? @ -I reviewed and agree with nursing and triage notes Were old charts reviewed (outside hosp., previous admission, EMS record, old EKG, old radiological studies, urgent care reports/EKG's, prison records)? Report findings @ -No old charts were reviewed Differential Diagnosis (chest pain, altered mental status, abdominal pain women, abdominal pain men, vaginal bleeding, weakness, fever, dyspnea, syncope, headache, dizziness, GI bleed, back pain, seizure, CVA, palpatations, mental health, musculoskeletal)? @ -Differential Abdominal Pain Women: Appendicitis, Cholecystitis, diverticulosis, ischemic bowel, pancreatitis, hepatitis, UTI, gastroenteritis, AAA, incarcerated hernia, bowel obstruction, constipation, inflammatory bowel, hepatitis, peptic ulcer disease, splenic infarction, perforated viscus, vulvitis, ovarian torsion, PID, kidney stone, placenta abruption, this is not meant to be an all-inclusive list EKG interpreted by me (3pts min.). @ -[None X-rays interpreted by me (1pt min.). @ -None done CT interpreted by me (1pt min.). @ -None done U/S interpreted by me (1pt. min.). @ -None done What testing was considered but not performed or refused? (CT, X-rays, U/S, labs)? Why? @ -[Considered CT, x-ray though patient does not have any significant laboratory abnormalities or localized abdominal pain What meds were considered but not given or refused? Why? @ -None Did you discuss the management of the patient with other professionals (cooper brewer i.e. , PA, RAILROAD CAR CLEANING SUPERVISOR, lab, RT, psych nurse, social insurance analyst, manager nursing home, teacher, affirmative action officer, case specialist)? Give summary @ -No Was smoking cessation discussed for >3mins.? @ -No Was critical care preformed (if so, how long)? @ -No Were there social determinants of health that impacted care today? How? (Homelessness, low income, unemployed, alcoholism, drug addiction, transportation, low edu. Level, literacy, decrease access to med. care, fpc, rehab)? @ -No Was there de-escalation of care discussed even if they declined (Discuss DNR or withdrawal of care, Hospice)? DNR status @ -No What co-morbidities impacted this encounter? (DM, HTN, Smoking, COPD, CAD, Cancer, CVA, ARF, Chemo, Hep., AIDS, mental health diagnosis, sleep apnea, morbid obesity)? @ -None Was patient admitted / discharged? Hospital course, mention meds given and route, prescriptions, significant lab abnormalities, going to OR and other pertinent info. @ -[Charge labs unremarkable patient did have some relief with GI cocktail. Patient be discharged with Pepcid, Carafate patient will follow-up with GI or surgery for EGD, possible colonoscopy. Undiagnosed new problem with uncertain prognosis? @ -No Drug Therapy requiring intensive monitoring for toxicity (Heparin, Nitro, Insulin, Cardizem)? @ -No Were any procedures done? @ -No Diagnosis/symptom? @ -[Abdominal pain Acute, or Chronic, or Acute on Chronic? @ -Acute Uncomplicated (without systemic symptoms) or Complicated (systemic symptoms)? @ -[uncomplicated Side effects of treatment? @ -[No Exacerbation, Progression, or Severe Exacerbation? @ -No Poses a threat to life or bodily function? How? (Chest pain, USA, NV, pneumonia, PE, COPD, DKA, ARF, appy, cholecystitis, CVA, Diverticulitis, Homicidal, Suicidal, threat to staff... and all critical care pts) @ -No - Lab Data Result diagrams: 10/10/23 06:30 10/10/23 06:30 Lab Results 10/10/23 10/10/23 10/10/23 Range/Units 06:30 06:30 07:12 WBC 8.1 (3.8-10.6) k/uL RBC 4.07 (3.80-5.40) m/uL Hgb 12.6 (11.4-16.0) gm/dL Hct 36.8 (34.0-46.0) % MCV 90.6 (80.0-100.0) fL MCH 30.9 (25.0-35.0) pg MCHC 34.1 (31.0-37.0) g/dL RDW 12.3 (11.5-15.5) % Plt Count 223 (150-450) k/uL MPV 8.7 Neutrophils % 68 % Lymphocytes % 23 % Monocytes % 4 % Eosinophils % 3 % Basophils % 0 % Neutrophils # 5.5 (1.3-7.7) k/uL Lymphocytes # 1.9 (1.0-4.8) k/uL Monocytes # 0.3 (0-1.0) k/uL Eosinophils # 0.2 (0-0.7) k/uL Basophils # 0.0 (0-0.2) k/uL Sodium 142 (137-145) mmol/L Potassium 4.3 (3.5-5.1) mmol/L Chloride 110 H (98-107) mmol/L Carbon Dioxide 24 (22-30) mmol/L Anion Gap 8 mmol/L BUN 13 (7-17) mg/dL Creatinine 0.47 L (0.52-1.04) mg/dL Est GFR (CKD-EPI)AfAm >90 (>60 ml/min/1.73 sqM) Est GFR (CKD-EPI)NonAf >90 (>60 ml/min/1.73 sqM) Glucose 117 H (74-99) mg/dL Calcium 9.5 (8.4-10.2) mg/dL Total Bilirubin 0.4 (0.2-1.3) mg/dL AST 31 (14-36) U/L ALT 34 (4-34) U/L Alkaline Phosphatase 67 (38-126) U/L Total Protein 7.0 (6.3-8.2) g/dL Albumin 4.3 (3.5-5.0) g/dL Lipase 64 (23-300) U/L Urine Color Colorless Urine Appearance Clear (Clear) Urine pH 7.0 (5.0-8.0) Ur Specific [place] 1.013 (1.001-1.035) Urine Protein Negative (Negative) Urine Glucose (UA) Negative (Negative) Urine Ketones Negative (Negative) Urine Blood Negative (Negative) Urine Nitrite Negative (Negative) Urine Bilirubin Negative (Negative) Urine Urobilinogen <2.0 (<2.0) mg/dL Ur Leukocyte Esterase Negative (Negative) Disposition Clinical Impression: Abdominal pain Disposition: HOME SELF-CARE Condition: Stable Instructions (If sedation given, give patient instructions): Abdominal Pain (ED) Additional Instructions: Please return to the Emergency Department if symptoms worsen or any other concerns. Prescriptions: Sucralfate [Carafate] 1 gm PO BID #30 tablet Famotidine [Pepcid] 20 mg PO BID #28 tablet Is patient prescribed a controlled substance at d/c from ED?: No Referrals: Burke Cope MD [Primary Care Provider] - 1-2 days Chata Spence MD [STAFF PHYSICIAN] - 1-2 days Abiel Roberson MD [STAFF PHYSICIAN] - 1-2 days Time of Disposition: 07:52
[2023-10-10 07:19] LABS: Appearance,Urine Clear (Clear); Bilirubin,Urine Negative (Negative); Blood,Urine Negative (Negative); Color,Urine Colorless; Glucose,Urine (UA) Negative (Negative); Ketones,Urine Negative (Negative); Leukocyte Esterase,Urine Negative (Negative); Nitrite,Urine Negative (Negative); Protein,Urine Negative (Negative); Specific Gravity,Urine 1.013 (1.001-1.035); Urobilinogen,Urine <2.0 mg/dL (<2.0)
[2023-10-10 08:20] VITALS: BP 111/70; PULSE 70
== END 2023-10-10 08:07 | disposition home or self-care (01) ==
LOC: EC 05:53
DX: R10.12 Left upper quadrant pain (principal); F17.290 Nicotine dependence, other tobacco product, uncomplicated; F12.90 Cannabis use, unspecified, uncomplicated; Z88.5 Allergy status to narcotic agent
CPT/HCPCS: 36415; 80053; 83690; 85025; 81003; 99284; 96374; J3490

== ENCOUNTER 2024-01-19 09:52 | Emergency (ER) | payer OTHER ==
[2024-01-19 10:26] VITALS: TEMP 98.2
[2024-01-19] MEDS: KETOROLAC 15 MG/ML 1 ML VIAL IVP STA (11:19)
[2024-01-19] MEDS: DEXAMETHASONE SOD PHOSPHATE 10 MG/ML 1 ML VIAL IVP STA (11:19)
[2024-01-19] MEDS: SODIUM CHLORIDE 0.9% 1,000 ML IV STA (11:19)
[2024-01-19] MEDS: diphenhydrAMINE 50 MG/ML 1 ML VIAL IVP STA (11:19)
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
[2024-01-19] MEDS: IBUPROFEN 800 MG TAB PO STA (11:38)
[2024-01-19] MEDS: ASPIRIN-ACET-CAFF 250-250-65MG 1 EACH TAB PO ONE (11:38)
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
[2024-01-19 12:24] VITALS: BP 124/80; PULSE 81; RESP 18
== END 2024-01-19 12:16 | disposition home or self-care (01) ==
LOC: EC 09:52
DX: S09.90XA Unspecified injury of head, initial encounter (principal); F17.290 Nicotine dependence, other tobacco product, uncomplicated; F12.90 Cannabis use, unspecified, uncomplicated; Z88.5 Allergy status to narcotic agent; V89.2XXA Person injured in unspecified motor-vehicle accident, traffic, initial encounter; Y92.411 Interstate highway as the place of occurrence of the external cause
CPT/HCPCS: 70450; 72125; 99284

== ENCOUNTER 2024-04-11 11:12 | Emergency (ER) | payer OTHER ==
[2024-04-11 11:19] VITALS: BP 98/67; PULSE 77; RESP 16; TEMP 98.3
--- NOTE | 2024-04-11 11:49 | ED ---
Abdominal Pain HPI - General Chief Complaint: Abdominal Pain Stated Complaint: Constipation Time Seen by Provider: 04/11/24 11:30 Source: patient, RN notes reviewed Mode of arrival: ambulatory Limitations: no limitations - History of Present Illness Initial Comments: this is a 28-year-old female who presents emergency department with chief complaint of constipation last week. Patient states that over the past 2 days she has attempted to take MiraLAX with no successful bowel movement. She states that she feels bloated and distended and has mild intermittent cramping of the left lower abdomen. She denies fevers, chills, nausea, vomiting, urinary symptoms. Patient had a section and abdominal hysterectomy with her last . States that she has biliary colic and follows with GI specialist biweekly with her next appointment this week, states that this pain is different as compared to her biliary pain. - Related Data Home Medications Medication Instructions Recorded Confirmed Ondansetron [Zofran] 4 mg PO Q8HR PRN 01/21/23 03/21/23 Vit No.180/Iron/Folic 1 tab PO DAILY 01/21/23 03/21/23 [ Plus Vitamin-Mineral] Omeprazole [PriLOSEC] 10 mg PO DAILY 03/07/23 03/21/23 Previous Rx's Medication Instructions Recorded Lidocaine 5% Patch [Lidoderm 5% 1 patch TOPICAL DAILY PRN #30 patch 06/16/23 Patch] Famotidine [Pepcid] 20 mg PO BID #28 tablet 10/10/23 Sucralfate [Carafate] 1 gm PO BID #30 tablet 10/10/23 Ibuprofen [Motrin] 800 mg PO Q8H PRN #30 tab 01/19/24 Allergies Allergy/AdvReac Type Severity Reaction Status Date / Time codeine Allergy Hallucinati Verified 10/10/23 06:14 ons Review of Systems ROS Statement: Those systems with pertinent positive or pertinent negative responses have been documented in the HPI. ROS Other: All systems not noted in ROS Statement are negative. 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 History of Any Multi-Drug Resistant Organisms: None Reported Date of last positivie culture/infection: 12/02/19 MDRO Source:: MRSA LEFT AXILLA Past Surgical History: Section, Hysterectomy Past Anesthesia/Blood Transfusion Reactions: No Reported Reaction Additional Past Anesthesia/Blood Transfusion Reaction / Comment(s): NO ANESTH HX Past Psychological History: Anxiety, Depression Smoking Status: Vaper Past Alcohol Use History: Rare Past Drug Use History: Marijuana - Past Family History Father History Unknown: Yes Additional Family Medical History / Comment(s): Father resides in [facility] and pt does not know his medical hx. Mother Family Medical History: No Reported History Additional Family Medical History / Comment(s): 4 brain anyresms General Exam Limitations: no limitations General appearance: alert, in no apparent distress Head exam: Present: atraumatic, normocephalic, normal inspection Eye exam: Present: normal appearance, PERRL, EOMI. Absent: scleral icterus, conjunctival injection, periorbital swelling ENT exam: Present: normal exam, mucous membranes moist Neck exam: Present: normal inspection. Absent: tenderness, meningismus, lymphadenopathy Respiratory exam: Present: normal lung sounds bilaterally. Absent: respiratory distress, wheezes, rales, rhonchi, stridor Cardiovascular Exam: Present: regular rate, normal rhythm, normal heart sounds. Absent: systolic murmur, diastolic murmur, rubs, gallop, clicks GI/Abdominal exam: Present: soft, tenderness (LLQ), normal bowel sounds. Absent: distended, guarding, rebound, rigid Extremities exam: Present: normal inspection, full ROM, normal capillary refill. Absent: tenderness, pedal edema, joint swelling, calf tenderness Back exam: Present: normal inspection Neurological exam: Present: alert, oriented X3, CN II-XII intact Psychiatric exam: Present: normal affect, normal mood Skin exam: Present: warm, dry, intact, normal color. Absent: rash Course Vital Signs 04/11/24 11:16 Temperature 98.3 F Pulse Rate 77 Respiratory 16 Rate Blood Pressure 98/67 O2 Sat by Pulse 98 Oximetry Medical Decision Making - Medical Decision Making Was pt. sent in by a medical professional or institution ([facility], PRODUCTION TECH, urgent care, hospital, or fpc...) When possible be specific @ -No Did you speak to anyone other than the patient for history (EMS, parent, family, police, friend...)? What history was obtained from this source @ -No Did you review nursing and triage notes (agree or disagree)? Why? @ -I reviewed and agree with nursing and triage notes Were old charts reviewed (outside hosp., previous admission, EMS record, old EKG, old radiological studies, urgent care reports/EKG's, fpc records)? Report findings @ -No old charts were reviewed Differential Diagnosis (chest pain, altered mental status, abdominal pain women, abdominal pain men, vaginal bleeding, weakness, fever, dyspnea, syncope, headache, dizziness, GI bleed, back pain, seizure, CVA, palpatations, mental health, musculoskeletal)? @ -Differential Abdominal Pain Women: Appendicitis, Cholecystitis, diverticulosis, ischemic bowel, pancreatitis, hepatitis, UTI, gastroenteritis, AAA, incarcerated hernia, bowel obstruction, constipation, inflammatory bowel, hepatitis, peptic ulcer disease, splenic infarction, perforated viscus, vulvitis, ovarian torsion, PID, kidney stone, placenta abruption, this is not meant to be an all-inclusive list EKG interpreted by me (3pts min.). @ -None X-rays interpreted by me (1pt min.). @ -XR KUB nonspecific abdomen without evidence of free air or obstruction. CT interpreted by me (1pt min.). @ -None done U/S interpreted by me (1pt. min.). @ -None done What testing was considered but not performed or refused? (CT, X-rays, U/S, labs)? Why? @ -None What meds were considered but not given or refused? Why? @ -None Did you discuss the management of the patient with other professionals (professionals i.e. , PA, PRODUCTION TECH, lab, RT, psych nurse, licensed social worker, winding department supervisor, teacher, combatant diver officer, disease case manager rn)? Give summary @ -No Was smoking cessation discussed for >3mins.? @ -No Was critical care preformed (if so, how long)? @ -No Were there social determinants of health that impacted care today? How? (Homeles sness, low income, unemployed, alcoholism, drug addiction, transportation, low edu. Level, literacy, decrease access to med. care, shelter, rehab)? @ -No Was there de-escalation of care discussed even if they declined (Discuss DNR or withdrawal of care, Hospice)? DNR status @ -No What co-morbidities impacted this encounter? (DM, HTN, Smoking, COPD, CAD, Cancer, CVA, ARF, Chemo, Hep., AIDS, mental health diagnosis, sleep apnea, morbid obesity)? @ -None Was patient admitted / discharged? Hospital course, mention meds given and route, prescriptions, significant lab abnormalities, going to OR and other pertinent info. @ -Left AGAINST MEDICAL ADVICE. 28-year-old female with complaint of abdominal pain and constipation. Discussion with patient she states that she has not had a bowel movement over the past week and has taken MiraLAX at home over the past 2 days with no relief. She has mild abdominal pain to left lower quadrant on examination, she is sent for x-ray and pending labs. He was informed that patient is leaving AGAINST MEDICAL ADVICE to warp picker her child. Unable to complete full assessment due to not obtaining labs. Undiagnosed new problem with uncertain prognosis? @ -No Drug Therapy requiring intensive monitoring for toxicity (Heparin, Nitro, Insulin, Cardizem)? @ -No Were any procedures done? @ -No Diagnosis/symptom? @ -abdominal pain, constipation, left AGAINST MEDICAL ADVICE Acute, or Chronic, or Acute on Chronic? @ -acute Uncomplicated (without systemic symptoms) or Complicated (systemic symptoms)? @ -uncomplicated Side effects of treatment? @ -No Exacerbation, Progression, or Severe Exacerbation? @ -No Poses a threat to life or bodily function? How? (Chest pain, USA, [place], pneumonia, PE, COPD, DKA, ARF, appy, cholecystitis, CVA, Diverticulitis, Homicidal, Suici marta, threat to staff... and all critical care pts) @ -No Disposition Clinical Impression: Constipation, Abdominal pain, Left against medical advice Disposition: LEFT AGAINST MEDICAL ADVICE Condition: Undetermined Is patient prescribed a controlled substance at d/c from ED?: No Referrals: Burke Cope MD [Primary Care Provider] - 1-2 days
--- NOTE | 2024-04-11 12:09 | XR ---
KUB. HISTORY: Abdominal pain. COMPARISON: None. TECHNIQUE: Single upright view of the abdomen was obtained. FINDINGS: The lung bases are clear. There is no free intraperitoneal air beneath the diaphragm. The bowel gas pattern is nonspecific and there is no evidence of obstruction. No suspicious abdominal or pelvic calcifications are seen. The osseous structures are intact. IMPRESSION: Nonspecific abdomen without evidence of free air or obstruction.
== END 2024-04-11 12:22 | disposition left against medical advice (07) ==
LOC: EC 11:12
DX: K59.00 Constipation, unspecified (principal); F17.290 Nicotine dependence, other tobacco product, uncomplicated; Z53.29 Procedure and treatment not carried out because of patient's decision for other reasons; Z88.5 Allergy status to narcotic agent
CPT/HCPCS: 74018; 99284

== ENCOUNTER 2024-07-15 22:31 | Emergency (ER) | payer OTHER ==
[2024-07-15 22:40] VITALS: RESP 18
--- NOTE | 2024-07-15 23:45 | ED ---
ENT HPI - General Chief complaint: ENT Stated complaint: dental pain Time Seen by Provider: 07/15/24 23:05 Source: patient Mode of arrival: ambulatory Limitations: no limitations - History of Present Illness Initial comments: 29-year-old female presenting with chief complaint of dental pain. Pain is on the left lower side. Has been ongoing for about 2 days. Patient has been experiencing nausea and vomiting secondary to the pain. She has multiple dental caries. She has an appointment on Saturday with her dentist. She has been taking Tylenol as needed. No trismus, drooling, difficulty breathing or swallowing, fever. - Related Data Home Medications Medication Instructions Recorded Confirmed Ondansetron [Zofran] 4 mg PO Q8HR PRN 01/21/23 03/21/23 Vit No.180/Iron/Folic 1 tab PO DAILY 01/21/23 03/21/23 [ Plus Vitamin-Mineral] Omeprazole [PriLOSEC] 10 mg PO DAILY 03/07/23 03/21/23 Previous Rx's Medication Instructions Recorded Lidocaine 5% Patch [Lidoderm 5% 1 patch TOPICAL DAILY PRN #30 patch 06/16/23 Patch] Famotidine [Pepcid] 20 mg PO BID #28 tablet 10/10/23 Sucralfate [Carafate] 1 gm PO BID #30 tablet 10/10/23 Ibuprofen [Motrin] 800 mg PO Q8H PRN #30 tab 01/19/24 Amoxic-Pot Clav 875-125Mg 1 tab PO Q12HR 7 Days #14 tab 07/15/24 [Augmentin 875-125] Allergies Allergy/AdvReac Type Severity Reaction Status Date / Time codeine Allergy Hallucinati Verified 07/15/24 22:40 ons ketorolac [From Toradol] Allergy Nausea & Verified 07/16/24 02:43 Vomiting Review of Systems ROS Statement: Those systems with pertinent positive or pertinent negative responses have been documented in the HPI. ROS Other: All systems not noted in ROS Statement are negative. 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 History of Any Multi-Drug Resistant Organisms: None Reported Date of last positivie culture/infection: 12/02/19 MDRO Source:: MRSA LEFT AXILLA Past Surgical History: Section, Hysterectomy Past Anesthesia/Blood Transfusion Reactions: No Reported Reaction Additional Past Anesthesia/Blood Transfusion Reaction / Comment(s): NO ANESTH HX Past Psychological History: Anxiety, Depression Smoking Status: Vaper Past Alcohol Use History: Rare Past Drug Use History: Marijuana - Past Family History Father History Unknown: Yes Additional Family Medical History / Comment(s): Father resides in [facility] and pt does not know his medical hx. Mother Family Medical History: No Reported History Additional Family Medical History / Comment(s): 4 brain anyresms General Exam Limitations: no limitations General appearance: alert, in no apparent distress Head exam: Present: atraumatic, normocephalic, normal inspection Eye exam: Present: normal appearance Expanded Mouth exam: Present: normal external inspection, tongue normal. Absent: drooling, trismus, muffled voice Teeth exam: Present: dental caries, dental tenderness # Throat exam: normal inspection Neck exam: Present: normal inspection. Absent: meningismus Respiratory exam: Absent: respiratory distress Cardiovascular Exam: Present: regular rate Neurological exam: Present: alert, oriented X3 Psychiatric exam: Present: normal affect, normal mood Skin exam: Present: warm, dry Course Vital Signs 07/15/24 07/16/24 22:38 00:33 Temperature 98.2 F 97.8 F Pulse Rate 90 81 Respiratory 18 18 Rate Blood Pressure 141/98 122/81 O2 Sat by Pulse 100 97 Oximetry Medical Decision Making - Medical Decision Making Was pt. sent in by a medical professional or institution ([facility] Ibanez, ADULT SCHOOL COUNSELOR, urgent care, hospital, or correction...) When possible be specific @ -No Did you speak to anyone other than the patient for history (EMS, parent, family, police, friend...)? What history was obtained from this source @ -No Did you review nursing and triage notes (agree or disagree)? Why? @ -I reviewed and agree with nursing and triage notes Were old charts reviewed (outside hosp., previous admission, EMS record, old EKG, old radiological studies, urgent care reports/EKG's, correction records)? Report findings @ -No old charts were reviewed Differential Diagnosis (chest pain, altered mental status, abdominal pain women, abdominal pain men, vaginal bleeding, weakness, fever, dyspnea, syncope, headache, dizziness, GI bleed, back pain, seizure, CVA, palpatations, mental health, musculoskeletal)? @ -Differential includes toothache, dental abscess, Nahum's angina, this is not an all-inclusive list EKG interpreted by me (3pts min.). @ -As above X-rays interpreted by me (1pt min.). @ -None done CT interpreted by me (1pt min.). @ -None done U/S interpreted by me (1pt. min.). @ -None done What testing was considered but not performed or refused? (CT, X-rays, U/S, labs)? Why? @ -None What meds were considered but not given or refused? Why? @ -None Did you discuss the management of the patient with other professionals (professionals i.e. , PA, ADULT SCHOOL COUNSELOR, lab, RT, psych nurse, health and social care teacher, certified technician, teacher, chief executive officer, rn case manager hospice)? Give summary @ -No Was smoking cessation discussed for >3mins.? @ -No Was critical care preformed (if so, how long)? @ -No Were there social determinants of health that impacted care today? How? (Homelessness, low income, unemployed, alcoholism, drug addiction, transportation, low edu. Level, literacy, decrease access to med. care, usp, rehab)? @ -No Was there de-escalation of care discussed even if they declined (Discuss DNR or withdrawal of care, Hospice)? DNR status @ -No What co-morbidities impacted this encounter? (DM, HTN, Smoking, COPD, CAD, Cancer, CVA, ARF, Chemo, Hep., AIDS, mental health diagnosis, sleep apnea, morbid obesity)? @ -None Was patient admitted / discharged? Hospital course, mention meds given and route, prescriptions, significant lab abnormalities, going to OR and other pertinent info. @ -29-year-old female presenting with chief complaint of dental pain. No red flag symptoms. Dental caries and tenderness on exam. Treated with pain medication and Augmentin. She will follow-up with her dentist at her scheduled appointment next week. Follow-up with PCP. Report back to ER with any new or worsening symptoms. Discussed return parameters and answered all questions. Patient conveyed verbal understanding and agreed to the plan. I discussed this case in detail with my attending Dr. Guevara Undiagnosed new problem with uncertain prognosis? @ -No Drug Therapy requiring intensive monitoring for toxicity (Heparin, Nitro, Insulin, Cardizem)? @ -No Were any procedures done? @ -No Diagnosis/symptom? @ -Dental pain Acute, or Chronic, or Acute on Chronic? @ -Acute Uncomplicated (without systemic symptoms) or Complicated (systemic symptoms)? @ -Uncomplicated Side effects of treatment? @ -No Exacerbation, Progression, or Severe Exacerbation? @ -No Poses a threat to life or bodily function? How? (Chest pain, USA, [place], pneumonia, PE, COPD, DKA, ARF, appy, cholecystitis, CVA, Diverticulitis, Homicidal, Suicidal, threat to staff... and all critical care pts) @ -Unlikely Disposition Clinical Impression: Toothache, Dental abscess Disposition: HOME SELF-CARE Condition: Good Instructions (If sedation given, give patient instructions): Dental Abscess (ED) Additional Instructions: Follow-up with PCP and dentist. Report back to ER with any new or worsening symptoms. Take medication as prescribed. Take Motrin and Tylenol as needed for pain control. Prescriptions: Amoxic-Pot Clav 875-125Mg [Augmentin 875-125] 1 tab PO Q12HR 7 Days #14 tab Is patient prescribed a controlled substance at d/c from ED?: No Referrals: Burke Cope MD [Primary Care Provider] - 1-2 days Time of Disposition: 23:45
[2024-07-16] MEDS: KETOROLAC 15 MG/ML 1 ML VIAL IM STA (00:07)
[2024-07-16] MEDS: AMOXIC-POT CLAV 875MG STARTER PACK 2 TAB BTL PO STA (00:08)
[2024-07-16] MEDS: ONDANSETRON 4 MG ODT STARTER PACK 2 TAB BTL PO STA (00:08)
[2024-07-16] MEDS: ONDANSETRON ODT 4 MG TAB PO STA (00:08)
[2024-07-16 00:34] VITALS: BP 122/81; PULSE 81; TEMP 97.8
== END 2024-07-16 00:33 | disposition home or self-care (01) ==
LOC: EC 22:31
DX: K04.7 Periapical abscess without sinus (principal); K02.9 Dental caries, unspecified; F17.290 Nicotine dependence, other tobacco product, uncomplicated; Z88.5 Allergy status to narcotic agent; Z88.6 Allergy status to analgesic agent
CPT/HCPCS: 99282; 96372; J1885; S0119

== ENCOUNTER 2024-07-16 02:38 | Emergency (ER) | payer OTHER ==
[2024-07-16 02:45] VITALS: TEMP 98.3
[2024-07-16] MEDS: ONDANSETRON 4 MG/2 ML VIAL IVP STA (03:26)
[2024-07-16] MEDS: SODIUM CHLORIDE 0.9% 1,000 ML IV STA (03:26)
[2024-07-16 03:40] LABS: Basophils % (A) 0 %; Eosinophils % (A) 0 %; HCT 38.6 % (34.0-46.0); HGB 12.9 gm/dL (11.4-16.0); Lymphocytes # (A) 1.2 k/uL (1.0-4.8); Lymphocytes % (A) 13 %; MCH 30.5 pg (25.0-35.0); MCHC 33.3 g/dL (31.0-37.0); MCV 91.3 fL (80.0-100.0); Mean Platelet Volume 8.5; Monocytes # (A) 0.3 k/uL (0-1.0); Monocytes % (A) 3 %; Neutrophils # (A) 7.7 k/uL (1.3-7.7); Neutrophils % (A) 83 %; Platelet Count 287 k/uL (150-450); RBC 4.22 m/uL (3.80-5.40); RDW 12.2 % (11.5-15.5); WBC 9.2 k/uL (3.8-10.6)
[2024-07-16 03:53] LABS: Appearance,Urine Clear (Clear); Bacteria,Urine Rare /hpf; Bilirubin,Urine Negative (Negative); Blood,Urine Negative (Negative); Budding Yeast,Urine Rare /hpf; Color,Urine Yellow; Glucose,Urine (UA) Trace (Negative); Ketones,Urine 4+ (Negative); Leukocyte Esterase,Urine Negative (Negative); Mucus,Urine Few /hpf; Nitrite,Urine Negative (Negative); Protein,Urine 1+ (Negative); RBC,Urine 1 /hpf (0-5); Squamous Epithelial Cell,Urine 6 /hpf (0-4); WBC,Urine 2 /hpf (0-5)
[2024-07-16 03:54] LABS: Specific Gravity,Urine >1.050 (1.001-1.035)
[2024-07-16 04:22] LABS: ALT 197 U/L (4-34); AST 218 U/L (14-36); African American GFR (CKD) >90 (>60 ml/min/1.73 sqM); Albumin 5.3 g/dL (3.5-5.0); Alkaline Phosphatase 70 U/L (38-126); Anion Gap 12 mmol/L; Blood Urea Nitrogen 21 mg/dL (7-17); Calcium 9.9 mg/dL (8.4-10.2); Carbon Dioxide 19 mmol/L (22-30); Chloride 108 mmol/L (98-107); Glucose 158 mg/dL (74-99); Lipase 92 U/L (23-300); Non-African American GFR(CKD) >90 (>60 ml/min/1.73 sqM); Potassium 3.7 mmol/L (3.5-5.1); Sodium 139 mmol/L (137-145); Total Bilirubin 0.9 mg/dL (0.2-1.3); Total Protein 8.3 g/dL (6.3-8.2)
--- NOTE | 2024-07-16 05:02 | ED ---
Nausea/Vomiting/Diarrhea HPI <Shaheed Dickinson - Last Filed: 07/21/24 03:23> - General Source: patient Mode of arrival: wheelchair Limitations: no limitations <Cade Guevara - Last Filed: 07/29/24 07:21> - General Chief complaint: Nausea/Vomiting/Diarrhea Stated complaint: NV Time Seen by Provider: 07/16/24 02:52 - History of Present Illness Initial comments: 29-year-old female presenting with chief complaint of nausea and vomiting. Patient was seen here 2 hours ago for dental pain that was causing her to have nausea and vomiting. She states now that the pain is actually been ongoing for 4 days and so has the nausea and vomiting. Patient was given Toradol when here earlier, she states that this happened 1 other time after getting Toradol and she thinks she may be allergic. Denies abdominal pain. No hematemesis. No chest pain or difficulty breathing. No dizziness or weakness. No fevers. (Shaheed Dickinson) - Related Data Home Medications Medication Instructions Recorded Confirmed Ondansetron [Zofran] 4 mg PO Q8HR PRN 01/21/23 03/21/23 Vit No.180/Iron/Folic 1 tab PO DAILY 01/21/23 03/21/23 [ Plus Vitamin-Mineral] Omeprazole [PriLOSEC] 10 mg PO DAILY 03/07/23 03/21/23 Previous Rx's Medication Instructions Recorded Lidocaine 5% Patch [Lidoderm 5% 1 patch TOPICAL DAILY PRN #30 patch 06/16/23 Patch] Famotidine [Pepcid] 20 mg PO BID #28 tablet 10/10/23 Sucralfate [Carafate] 1 gm PO BID #30 tablet 10/10/23 Ibuprofen [Motrin] 800 mg PO Q8H PRN #30 tab 01/19/24 Amoxic-Pot Clav 875-125Mg 1 tab PO Q12HR 7 Days #14 tab 07/15/24 [Augmentin 875-125] Allergies Allergy/AdvReac Type Severity Reaction Status Date / Time codeine Allergy Hallucinati Verified 07/15/24 22:40 ons ketorolac [From Toradol] Allergy Nausea & Verified 07/16/24 02:43 Vomiting Review of Systems ROS Other: All systems not noted in ROS Statement are negative. <Shaheed Dickinson - Last Filed: 07/21/24 03:23> ROS Other: All systems not noted in ROS Statement are negative. <BrendenCade holm - Last Filed: 07/29/24 07:21> ROS Statement: Those systems with pertinent positive or pertinent negative responses have been documented in the HPI. 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 History of Any Multi-Drug Resistant Organisms: None Reported Date of last positivie culture/infection: 12/02/19 MDRO Source:: MRSA LEFT AXILLA Past Surgical History: Section, Hysterectomy Past Anesthesia/Blood Transfusion Reactions: No Reported Reaction Additional Past Anesthesia/Blood Transfusion Reaction / Comment(s): NO ANESTH HX Past Psychological History: Anxiety, Depression Smoking Status: Vaper Past Alcohol Use History: Rare Past Drug Use History: Marijuana - Past Family History Father History Unknown: Yes Additional Family Medical History / Comment(s): Father resides in [facility] and pt does not know his medical hx. Mother Family Medical History: No Reported History Additional Family Medical History / Comment(s): 4 brain anyresms <Cade Guevara - Last Filed: 07/29/24 07:21> General Exam General appearance: alert, in no apparent distress Head exam: Present: atraumatic, normocephalic, normal inspection Eye exam: Present: normal appearance, EOMI Neck exam: Present: normal inspection. Absent: meningismus Respiratory exam: Present: normal lung sounds bilaterally. Absent: respiratory distress, wheezes, rales, rhonchi, stridor Cardiovascular Exam: Present: regular rate, normal rhythm, normal heart sounds. Absent: systolic murmur, diastolic murmur, rubs, gallop, clicks GI/Abdominal exam: Present: soft. Absent: distended, tenderness, guarding, rebound, rigid Neurological exam: Present: alert, oriented X3 Psychiatric exam: Present: normal affect, normal mood Skin exam: Present: warm, dry <Shaheed Dickinson - Last Filed: 07/21/24 03:23> Limitations: no limitations <BrendenCade holm - Last Filed: 07/29/24 07:21> Course Vital Signs 07/16/24 07/16/24 02:43 05:41 Temperature 98.3 F Pulse Rate 103 H 82 Respiratory 20 18 Rate Blood Pressure 140/79 129/74 O2 Sat by Pulse 100 96 Oximetry Medical Decision Making - Lab Data Result diagrams: 07/16/24 03:23 07/16/24 03:23 <Shaheed Dickinson - Last Filed: 07/21/24 03:23> - Lab Data Result diagrams: 07/16/24 03:23 07/16/24 03:23 <Cade Guevara - Last Filed: 07/29/24 07:21> - Medical Decision Making Was pt. sent in by a medical professional or institution (, [facility]ANE, WELL HEAD PU[employer]ER, urgent care, hospital, or snf...) When possible be specific @ -No Did you speak to anyone other than the patient for history (EMS, parent, family, police, friend...)? What history was obtained from this source @ -No Did you review nursing and triage notes (agree or disagree)? Why? @ -I reviewed and agree with nursing and triage notes Were old charts reviewed (outside hosp., previous admission, EMS record, old EKG, old radiological studies, urgent care reports/EKG's, snf records)? Report findings @ -No old charts were reviewed Differential Diagnosis (chest pain, altered mental status, abdominal pain women, abdominal pain men, vaginal bleeding, weakness, fever, dyspnea, syncope, headache, dizziness, GI bleed, back pain, seizure, CVA, palpatations, mental health, musculoskeletal)? @ -Differential includes allergy, gastroenteritis, pain, this is not an all- inclusive list EKG interpreted by me (3pts min.). @ -As above X-rays interpreted by me (1pt min.). @ -None done CT interpreted by me (1pt min.). @ -None done U/S interpreted by me (1pt. min.). @ -None done What testing was considered but not performed or refused? (CT, X-rays, U/S, labs)? Why? @ -None What meds were considered but not given or refused? Why? @ -None Did you discuss the management of the patient with other professionals (professionals i.e. MARY JANE Ibanez, WELL HEAD PUMPER, lab, RT, psych nurse, professor of social work, product trainer, teacher, registration officer, child support case officer)? Give summary @ -No Was smoking cessation discussed for >3mins.? @ -No Was critical care preformed (if so, how long)? @ -No Were there social determinants of health that impacted care today? How? (Homelessness, low income, unemployed, alcoholism, drug addiction, transportation, low edu. Level, literacy, decrease access to med. care, long term, rehab)? @ -No Was there de-escalation of care discussed even if they declined (Discuss DNR or withdrawal of care, Hospice)? DNR status @ -No What co-morbidities impacted this encounter? (DM, HTN, Smoking, COPD, CAD, Cancer, CVA, ARF, Chemo, Hep., AIDS, mental health diagnosis, sleep apnea, morbid obesity)? @ -None Was patient admitted / discharged? Hospital course, mention meds given and route, prescriptions, significant lab abnormalities, going to OR and other pertinent info. @ -29-year-old female presenting with chief complaint of nausea and vomiting. Patient received Toradol earlier and thinks that she is allergic. History and physical examination are conducted. No leukocytosis or anemia. AST 218 ALT 197. Patient reports that she has been taking Tylenol for her dental pain, she has been taking 2 tabs in the morning and 2 tabs in the evening. Concerned that she may be experiencing some some Tylenol toxicity. On reassessment patient reports that she feels "100% better". Patient is signed out to my attending Dr. Guevara who will speak with poison control and continue the patient's care Undiagnosed new problem with uncertain prognosis? @ -No Drug Therapy requiring intensive monitoring for toxicity (Heparin, Nitro, Insulin, Cardizem)? @ -No Were any procedures done? @ -No Diagnosis/symptom? @ -Default Acute, or Chronic, or Acute on Chronic? @ -Default Uncomplicated (without systemic symptoms) or Complicated (systemic symptoms)? @ -Default Side effects of treatment? @ -No Exacerbation, Progression, or Severe Exacerbation? @ -No Poses a threat to life or bodily function? How? (Chest pain, USA, [place], pneumonia, PE, COPD, DKA, ARF, appy, cholecystitis, CVA, Diverticulitis, Homicidal, Suicidal, threat to staff... and all critical care pts) @ -No (Shaheed Dickinson) I did discuss the case with poison control and agree with their recommendation to give dose of acetylcysteine. I discussed this with the patient who is refusing medication. Feeling better and would like to go home. She does understand and will avoid using Tylenol. Discussed appropriate further care and follow-up as well as return parameters. (Cade Guevara) - Lab Data Lab Results 07/16/24 07/16/24 07/16/24 Range/Units 03:23 03:23 03:23 WBC 9.2 (3.8-10.6) k/uL RBC 4.22 (3.80-5.40) m/uL Hgb 12.9 (11.4-16.0) gm/dL Hct 38.6 (34.0-46.0) % MCV 91.3 (80.0-100.0) fL MCH 30.5 (25.0-35.0) pg MCHC 33.3 (31.0-37.0) g/dL RDW 12.2 (11.5-15.5) % Plt Count 287 (150-450) k/uL MPV 8.5 Neutrophils % 83 % Lymphocytes % 13 % Monocytes % 3 % Eosinophils % 0 % Basophils % 0 % Neutrophils # 7.7 (1.3-7.7) k/uL Lymphocytes # 1.2 (1.0-4.8) k/uL Monocytes # 0.3 (0-1.0) k/uL Eosinophils # 0.0 (0-0.7) k/uL Basophils # 0.0 (0-0.2) k/uL Sodium 139 (137-145) mmol/L Potassium 3.7 (3.5-5.1) mmol/L Chloride 108 H (98-107) mmol/L Carbon Dioxide 19 L (22-30) mmol/L Anion Gap 12 mmol/L BUN 21 H (7-17) mg/dL Creatinine 0.46 L (0.52-1.04) mg/dL Est GFR (CKD-EPI)AfAm >90 (>60 ml/min/1.73 sqM) Est GFR (CKD-EPI)NonAf >90 (>60 ml/min/1.73 sqM) Glucose 158 H (74-99) mg/dL Calcium 9.9 (8.4-10.2) mg/dL Total Bilirubin 0.9 (0.2-1.3) mg/dL AST 218 H (14-36) U/L ALT 197 H (4-34) U/L Alkaline Phosphatase 70 (38-126) U/L Total Protein 8.3 H (6.3-8.2) g/dL Albumin 5.3 H (3.5-5.0) g/dL Lipase 92 (23-300) U/L Urine Color Yellow Urine Appearance Clear (Clear) Urine pH 6.0 (5.0-8.0) Ur Specific Ford >1.050 H (1.001-1.035) Urine Protein 1+ H (Negative) Urine Glucose (UA) Trace H (Negative) Urine Ketones 4+ H (Negative) Urine Blood Negative (Negative) Urine Nitrite Negative (Negative) Urine Bilirubin Negative (Negative) Urine Urobilinogen 4.0 (<2.0) mg/dL Ur Leukocyte Esterase Negative (Negative) Urine RBC 1 (0-5) /hpf Urine WBC 2 (0-5) /hpf Ur Squamous Epith Cells 6 H (0-4) /hpf Urine Bacteria Rare H (None) /hpf Urine Mucus Few H (None) /hpf Urine Yeast (Budding) Rare H (None) /hpf Urine HCG, Qual (Not Detectd) 07/16/24 Range/Units 03:23 WBC (3.8-10.6) k/uL RBC (3.80-5.40) m/uL Hgb (11.4-16.0) gm/dL Hct (34.0-46.0) % MCV (80.0-100.0) fL MCH (25.0-35.0) pg MCHC (31.0-37.0) g/dL RDW (11.5-15.5) % Plt Count (150-450) k/uL MPV Neutrophils % % Lymphocytes % % Monocytes % % Eosinophils % % Basophils % % Neutrophils # (1.3-7.7) k/uL Lymphocytes # (1.0-4.8) k/uL Monocytes # (0-1.0) k/uL Eosinophils # (0-0.7) k/uL Basophils # (0-0.2) k/uL Sodium (137-145) mmol/L Potassium (3.5-5.1) mmol/L Chloride (98-107) mmol/L Carbon Dioxide (22-30) mmol/L Anion Gap mmol/L BUN (7-17) mg/dL Creatinine (0.52-1.04) mg/dL Est GFR (CKD-EPI)AfAm (>60 ml/min/1.73 sqM) Est GFR (CKD-EPI)NonAf (>60 ml/min/1.73 sqM) Glucose (74-99) mg/dL Calcium (8.4-10.2) mg/dL Total Bilirubin (0.2-1.3) mg/dL AST (14-36) U/L ALT (4-34) U/L Alkaline Phosphatase (38-126) U/L Total Protein (6.3-8.2) g/dL Albumin (3.5-5.0) g/dL Lipase (23-300) U/L Urine Color Urine Appearance (Clear) Urine pH (5.0-8.0) Ur Specific Ford (1.001-1.035) Urine Protein (Negative) Urine Glucose (UA) (Negative) Urine Ketones (Negative) Urine Blood (Negative) Urine Nitrite (Negative) Urine Bilirubin (Negative) Urine Urobilinogen (<2.0) mg/dL Ur Leukocyte Esterase (Negative) Urine RBC (0-5) /hpf Urine WBC (0-5) /hpf Ur Squamous Epith Cells (0-4) /hpf Urine Bacteria (None) /hpf Urine Mucus (None) /hpf Urine Yeast (Budding) (None) /hpf Urine HCG, Qual Not Detected (Not Detectd) Disposition <Shaheed Dickinson - Last Filed: 07/21/24 03:23> Is patient prescribed a controlled substance at d/c from ED?: No <Cade Guevara - Last Filed: 07/29/24 07:21> Clinical Impression: Vomiting, Tylenol toxicity Disposition: HOME SELF-CARE Condition: Fair Instructions (If sedation given, give patient instructions): Acute Nausea and Vomiting (ED) Additional Instructions: As we discussed, avoid using Tylenol. Referrals: Burke Cope MD [Primary Care Provider] - 1-2 days
[2024-07-16] MEDS: ACETYLCYSTEINE 6,000 MG/30 ML VIAL PO ONE (05:36)
[2024-07-16 05:43] VITALS: BP 129/74; PULSE 82; RESP 18
== END 2024-07-16 05:44 | disposition home or self-care (01) ==
LOC: EC 02:38
DX: T39.1X1A Poisoning by 4-Aminophenol derivatives, accidental (unintentional), initial encounter (principal); R11.2 Nausea with vomiting, unspecified; F17.290 Nicotine dependence, other tobacco product, uncomplicated; Z88.5 Allergy status to narcotic agent; Z88.6 Allergy status to analgesic agent
CPT/HCPCS: 36415; 80053; 83690; 85025; 81001; 81025; 99284; 96374; 96361 ×2; J2405

== ENCOUNTER 2024-09-26 09:03 | Emergency (ER) | payer OTHER ==
[2024-09-26 09:21] VITALS: TEMP 98.5
--- NOTE | 2024-09-26 10:02 | ED ---
General Adult HPI - General Chief complaint: Abdominal Pain Stated complaint: dehydrated Time Seen by Provider: 09/26/24 09:15 Source: patient, RN notes reviewed, old records reviewed Mode of arrival: ambulatory Limitations: no limitations - History of Present Illness Initial comments: This is a 29-year-old female who states that she has been having issues she believes with her gallbladder for a while and she is following up with a primary medical care doctor. Patient states she has been vomiting on and off for the last couple days and she believes she is a little dehydrated need some fluid. Patient states she is no longer nauseous now because she took a Zofran at home today. Patient denies any diarrhea. Patient has any fever chills. Patient denies any abdominal pain currently. - Related Data Home Medications Medication Instructions Recorded Confirmed Ondansetron [Zofran] 4 mg PO Q8HR PRN 01/21/23 03/21/23 Vit No.180/Iron/Folic 1 tab PO DAILY 01/21/23 03/21/23 [ Plus Vitamin-Mineral] Omeprazole [PriLOSEC] 10 mg PO DAILY 03/07/23 03/21/23 Previous Rx's Medication Instructions Recorded Lidocaine 5% Patch [Lidoderm 5% 1 patch TOPICAL DAILY PRN #30 patch 06/16/23 Patch] Famotidine [Pepcid] 20 mg PO BID #28 tablet 10/10/23 Sucralfate [Carafate] 1 gm PO BID #30 tablet 10/10/23 Ibuprofen [Motrin] 800 mg PO Q8H PRN #30 tab 01/19/24 Amoxic-Pot Clav 875-125Mg 1 tab PO Q12HR 7 Days #14 tab 07/15/24 [Augmentin 875-125] Allergies Allergy/AdvReac Type Severity Reaction Status Date / Time codeine Allergy Hallucinati Verified 09/26/24 09:13 ons ketorolac [From Toradol] Allergy Nausea & Verified 09/26/24 09:13 Vomiting Review of Systems ROS Statement: Those systems with pertinent positive or pertinent negative responses have been documented in the HPI. ROS Other: All systems not noted in ROS Statement are negative. 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 History of Any Multi-Drug Resistant Organisms: None Reported Date of last positivie culture/infection: 12/02/19 MDRO Source:: MRSA LEFT AXILLA Past Surgical History: Section, Hysterectomy Past Anesthesia/Blood Transfusion Reactions: No Reported Reaction Additional Past Anesthesia/Blood Transfusion Reaction / Comment(s): NO ANESTH HX Past Psychological History: Anxiety, Depression Smoking Status: Vaper Past Alcohol Use History: Rare Past Drug Use History: Marijuana - Past Family History Father History Unknown: Yes Additional Family Medical History / Comment(s): Father resides in [facility] and pt does not know his medical hx. Mother Family Medical History: No Reported History Additional Family Medical History / Comment(s): 4 brain anyresms General Exam - General Exam Comments Initial Comments: GENERAL: Patient is well-developed and well-nourished. Patient is nontoxic and well- hydrated and is in no acute distress. ENT: Neck is soft and supple. No significant lymphadenopathy is noted. Oropharynx is clear. Moist mucous membranes. Neck has full range of motion without eliciting any pain. EYES: The sclera were anicteric and conjunctiva were pink and moist. Extraocular movements were intact and pupils were equal round and reactive to light. Eyelids were unremarkable. PULMONARY: Unlabored respirations. Good breath sounds bilaterally. No audible rales rhonchi or wheezing was noted. CARDIOVASCULAR: There is a regular rate and rhythm without any murmurs gallops or rubs. ABDOMEN: Soft and nontender with normal bowel sounds. SKIN: Skin is clear with no lesions or rashes and otherwise unremarkable. NEUROLOGIC: Patient is alert and oriented x3. Cranial nerves II through XII are grossly intact. Motor and sensory are also intact. Normal speech, volume and content. Symmetrical smile. MUSCULOSKELETAL: Normal extremities with adequate strength and full range of motion. LYMPHATICS: No significant lymphadenopathy is noted PSYCHIATRIC: Normal psychiatric evaluation. Limitations: no limitations Course Vital Signs 09/26/24 09:13 Temperature 98.5 F Pulse Rate 102 H Respiratory 18 Rate Blood Pressure 110/70 O2 Sat by Pulse 99 Oximetry Medical Decision Making - Medical Decision Making Was pt. sent in by a medical professional or institution (MARY JANE Ibanez, SALES OPERATIONS SPECIALIST, urgent care, hospital, or correction...) When possible be specific @ -No Did you speak to anyone other than the patient for history (EMS, parent, family, police, friend...)? What history was obtained from this source @ -No Did you review nursing and triage notes (agree or disagree)? Why? @ -I reviewed and agree with nursing and triage notes Were old charts reviewed (outside hosp., previous admission, EMS record, old EKG, old radiological studies, urgent care reports/EKG's, correction records)? Report findings @ -No old charts were reviewed Differential Diagnosis? @ -Differential Abdominal Pain Women: Appendicitis, Cholecystitis, diverticulosis, ischemic bowel, pancreatitis, hepatitis, UTI, gastroenteritis, AAA, incarcerated hernia, bowel obstruction, constipation, inflammatory bowel, hepatitis, peptic ulcer disease, splenic infarction, perforated viscus, vulvitis, ovarian torsion, PID, kidney stone, placenta abruption, this is not meant to be an all-inclusive list EKG interpreted by me (3pts min.). @ -As above X-rays interpreted by me (1pt min.). @ -KUB shows no acute abnormality CT interpreted by me (1pt min.). @ -None done U/S interpreted by me (1pt. min.). @ -None done What testing was considered but not performed or refused? (CT, X-rays, U/S, labs )? Why? @ -None What meds were considered but not given or refused? Why? @ -None Did you discuss the management of the patient with other professionals (professionals i.e. , PA, SALES OPERATIONS SPECIALIST, lab, RT, psych nurse, social economist, heater furnace, teacher, safety officer, block and case maker)? Give summary @ -No Was smoking cessation discussed for >3mins.? @ -No Was critical care preformed (if so, how long)? @ -No Were there social determinants of health that impacted care today? How? (Homelessness, low income, unemployed, alcoholism, drug addiction, transportation, low edu. Level, literacy, decrease access to med. care, custodial, rehab)? @ -No Was there de-escalation of care discussed even if they declined (Discuss DNR or withdrawal of care, Hospice)? DNR status @ -No What co-morbidities impacted this encounter? (DM, HTN, Smoking, COPD, CAD, Cancer, CVA, ARF, Chemo, Hep., AIDS, mental health diagnosis, sleep apnea, morbid obesity)? @ -None Was patient admitted / discharged? Hospital course, mention meds given and route, prescriptions, significant lab abnormalities, going to OR and other pertinent info. @ -Patient received a liter of fluid. Patient was no longer nauseous and her belly was soft at the beginning of her visit as well as at the end. Undiagnosed new problem with uncertain prognosis? @ -No Drug Therapy requiring intensive monitoring for toxicity (Heparin, Nitro, Insulin, Cardizem)? @ -No Were any procedures done? @ -No Diagnosis/symptom? @ -Nausea vomiting Acute, or Chronic, or Acute on Chronic? @ -Acute Uncomplicated (without systemic symptoms) or Complicated (systemic symptoms)? @ -Uncomplicated Side effects of treatment? @ -No Exacerbation, Progression, or Severe Exacerbation? @ -No Poses a threat to life or bodily function? How? (Chest pain, USA, [place], pneumonia, PE, COPD, DKA, ARF, appy, cholecystitis, CVA, Diverticulitis, Homicidal, Suicidal, threat to staff... and all critical care pts) @ -No - Lab Data Result diagrams: 09/26/24 10:22 09/26/24 10:22 Lab Results 09/26/24 09/26/24 Range/Units 10:22 10:22 WBC 13.7 H (3.8-10.6) k/uL RBC 3.98 (3.80-5.40) m/uL Hgb 12.2 (11.4-16.0) gm/dL Hct 35.8 (34.0-46.0) % MCV 90.1 (80.0-100.0) fL MCH 30.8 (25.0-35.0) pg MCHC 34.1 (31.0-37.0) g/dL RDW 11.4 L (11.5-15.5) % Plt Count 315 (150-450) k/uL MPV 7.6 Neutrophils % 87 % Lymphocytes % 8 % Monocytes % 4 % Eosinophils % 0 % Basophils % 0 % Neutrophils # 11.9 H (1.3-7.7) k/uL Lymphocytes # 1.1 (1.0-4.8) k/uL Monocytes # 0.6 (0-1.0) k/uL Eosinophils # 0.1 (0-0.7) k/uL Basophils # 0.0 (0-0.2) k/uL Sodium 138 (137-145) mmol/L Potassium 4.1 (3.5-5.1) mmol/L Chloride 102 (98-107) mmol/L Carbon Dioxide 25 (22-30) mmol/L Anion Gap 11 mmol/L BUN 14 (7-17) mg/dL Creatinine 0.57 (0.52-1.04) mg/dL Est GFR (CKD-EPI)AfAm >90 (>60 ml/min/1.73 sqM) Est GFR (CKD-EPI)NonAf >90 (>60 ml/min/1.73 sqM) Glucose 102 H (74-99) mg/dL Calcium 9.5 (8.4-10.2) mg/dL Total Bilirubin 0.4 (0.2-1.3) mg/dL AST 24 (14-36) U/L ALT 17 (4-34) U/L Alkaline Phosphatase 71 (38-126) U/L Total Protein 7.1 (6.3-8.2) g/dL Albumin 4.5 (3.5-5.0) g/dL Disposition Clinical Impression: Nausea and vomiting Disposition: HOME SELF-CARE Condition: Good Instructions (If sedation given, give patient instructions): Acute Nausea and Vomiting (ED) Is patient prescribed a controlled substance at d/c from ED?: No Referrals: Burke Cope MD [Primary Care Provider] - 1-2 days Time of Disposition: 10:53
--- NOTE | 2024-09-26 10:16 | XR ---
EXAMINATION TYPE: XR KUB DATE OF EXAM: 09/26/2024 10:10 AM COMPARISON: 04/11/2024 CLINICAL INDICATION: Female, 29 years old with history of Abdominal pain, TECHNIQUE: XR KUB view(s) obtained. FINDINGS: There is a normal bowel gas pattern. Psoas margins are normal. No organomegaly is present. No mass effect is evident. No free air is evident. No differential air-fluid levels are evident. IMPRESSION: 1. Unremarkable [facility], , 09/26/2024 10:14 AM
[2024-09-26] MEDS: SODIUM CHLORIDE 0.9% 500 ML 500 ML IV ONE (10:22)
[2024-09-26 10:29] LABS: Basophils % (A) 0 %; Eosinophils # (A) 0.1 k/uL (0-0.7); Eosinophils % (A) 0 %; HCT 35.8 % (34.0-46.0); HGB 12.2 gm/dL (11.4-16.0); Lymphocytes # (A) 1.1 k/uL (1.0-4.8); Lymphocytes % (A) 8 %; MCH 30.8 pg (25.0-35.0); MCHC 34.1 g/dL (31.0-37.0); MCV 90.1 fL (80.0-100.0); Mean Platelet Volume 7.6; Monocytes # (A) 0.6 k/uL (0-1.0); Monocytes % (A) 4 %; Neutrophils # (A) 11.9 k/uL (1.3-7.7); Neutrophils % (A) 87 %; Platelet Count 315 k/uL (150-450); RBC 3.98 m/uL (3.80-5.40); RDW 11.4 % (11.5-15.5); WBC 13.7 k/uL (3.8-10.6)
[2024-09-26 10:42] LABS: ALT 17 U/L (4-34); AST 24 U/L (14-36); African American GFR (CKD) >90 (>60 ml/min/1.73 sqM); Albumin 4.5 g/dL (3.5-5.0); Alkaline Phosphatase 71 U/L (38-126); Anion Gap 11 mmol/L; Blood Urea Nitrogen 14 mg/dL (7-17); Calcium 9.5 mg/dL (8.4-10.2); Carbon Dioxide 25 mmol/L (22-30); Chloride 102 mmol/L (98-107); Glucose 102 mg/dL (74-99); Non-African American GFR(CKD) >90 (>60 ml/min/1.73 sqM); Potassium 4.1 mmol/L (3.5-5.1); Sodium 138 mmol/L (137-145); Total Bilirubin 0.4 mg/dL (0.2-1.3); Total Protein 7.1 g/dL (6.3-8.2)
[2024-09-26 11:11] VITALS: BP 112/74; PULSE 94; RESP 20
== END 2024-09-26 11:11 | disposition home or self-care (01) ==
LOC: EC 09:03
DX: R11.2 Nausea with vomiting, unspecified (principal); F17.290 Nicotine dependence, other tobacco product, uncomplicated; Z88.5 Allergy status to narcotic agent; Z88.8 Allergy status to other drugs, medicaments and biological substances
CPT/HCPCS: 36415; 74018; 80053; 85025; 99284

== ENCOUNTER 2025-01-01 11:42 | Emergency (ER) | payer OTHER ==
[2025-01-01] MEDS: LORazepam 2 MG/ML INJ IV STA (13:01)
--- NOTE | 2025-01-01 13:04 | ED ---
General Adult HPI - General Chief complaint: Recheck/Abnormal Lab/Rx Stated complaint: med issue Time Seen by Provider: 01/01/25 12:07 Source: patient Mode of arrival: ambulatory Limitations: no limitations - History of Present Illness Initial comments: Dictation was produced using [employer] dictation software. please excuse any grammatical, word or spelling errors. Chief Complaint: 29-year-old female presents to the emergency department for agitation History of Present Illness: Patient 29-year-old female presents to the emergency department agitation she was seen at [facility] earlier was given an IM injection to her left gluteus for abdominal pain. States she feels agitated. States that she was seen at [facility] for gallbladder issues. Patient denies any symptoms at the bedside signs from agitation. States she has a history of anxiety. The ROS documented in this emergency department record has been reviewed and confirmed by me. Those systems with pertinent positive or negative responses have been documented in the HPI. All other systems are other negative and/or noncontributory. - Related Data Home Medications Medication Instructions Recorded Confirmed Ondansetron [Zofran] 4 mg PO Q8HR PRN 01/21/23 03/21/23 Vit No.180/Iron/Folic 1 tab PO DAILY 01/21/23 03/21/23 [ Plus Vitamin-Mineral] Omeprazole [PriLOSEC] 10 mg PO DAILY 03/07/23 03/21/23 Previous Rx's Medication Instructions Recorded Lidocaine 5% Patch [Lidoderm 5% 1 patch TOPICAL DAILY PRN #30 patch 06/16/23 Patch] Famotidine [Pepcid] 20 mg PO BID #28 tablet 10/10/23 Sucralfate [Carafate] 1 gm PO BID #30 tablet 10/10/23 Ibuprofen [Motrin] 800 mg PO Q8H PRN #30 tab 01/19/24 Amoxic-Pot Clav 875-125Mg 1 tab PO Q12HR 7 Days #14 tab 07/15/24 [Augmentin 875-125] Dicyclomine [Bentyl] 20 mg PO QID #15 tablet 10/22/24 Famotidine [Pepcid] 20 mg PO BID #14 tablet 10/22/24 Allergies Allergy/AdvReac Type Severity Reaction Status Date / Time codeine Allergy Hallucinati Verified 01/01/25 11:56 ons ketorolac [From Toradol] Allergy Nausea & Verified 01/01/25 11:56 Vomiting Review of Systems ROS Statement: Those systems with pertinent positive or pertinent negative responses have been documented in the HPI. ROS Other: All systems not noted in ROS Statement are negative. 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 History of Any Multi-Drug Resistant Organisms: None Reported Date of last positivie culture/infection: 12/02/19 MDRO Source:: MRSA LEFT AXILLA Past Surgical History: Section, Hysterectomy Past Anesthesia/Blood Transfusion Reactions: No Reported Reaction Additional Past Anesthesia/Blood Transfusion Reaction / Comment(s): NO ANESTH HX Past Psychological History: Anxiety, Depression Smoking Status: Vaper Past Alcohol Use History: Rare Past Drug Use History: Marijuana - Past Family History Father History Unknown: Yes Additional Family Medical History / Comment(s): Father resides in [facility] and pt does not know his medical hx. Mother Family Medical History: No Reported History Additional Family Medical History / Comment(s): 4 brain anyresms General Exam - General Exam Comments Initial Comments: PHYSICAL EXAM: General Impression: Alert and oriented x3, not in acute distress HEENT: Normocephalic atraumatic, extra-ocular movements intact, pupils equal and reactive to light bilaterally, mucous membranes moist. Cardiovascular: Heart regular rate and rhythm Chest: Able to complete full sentences, no retractions, no tachypnea Abdomen: abdomen soft, non-tender, non-distended, no organomegaly Musculoskeletal: Pulses present and equal in all extremities, no peripheral edema Motor: no focal deficits noted Neurological: CN II-XII grossly intact, no focal motor or sensory deficits noted Skin: Intact with no visualized rashes Psych: Pacing in the room, agitated Limitations: no limitations Course Vital Signs 01/01/25 11:53 Temperature 97.5 F L Pulse Rate 109 H Respiratory 20 Rate Blood Pressure 132/90 O2 Sat by Pulse 98 Oximetry Medical Decision Making - Medical Decision Making Was pt. sent in by a medical professional or institution (, PA, ASSISTANCE SPECIALIST, urgent care, hospital, or residential...) When possible be specific @ -No Did you speak to anyone other than the patient for history (EMS, parent, family, police, friend...)? What history was obtained from this source @ -No Did you review nursing and triage notes (agree or disagree)? Why? @ -I reviewed and agree with nursing and triage notes Were old charts reviewed (outside hosp., previous admission, EMS record, old EKG, old radiological studies, urgent care reports/EKG's, residential records)? Report findings @ -No old charts were reviewed Differential Diagnosis (chest pain, altered mental status, abdominal pain women, abdominal pain men, vaginal bleeding, musculoskeletal, weakness, fever, dyspnea, syncope, headache, dizziness, GI bleed, back pain, seizure, CVA, palpatations, mental health)? @ -Differential Mental Health: Depression, anxiety, bipolar, psychosis, schizophrenia, borderline personality, situational depression, adjustment disorder, behavioral disorder, brain tumor, malingering, substance abuse, encephalopathy, medication reaction, dementia, hypothyroidism, degenerative neurologic disorder, lupus.... This is not meant to be all-inclusive list EKG interpreted by me (3pts min.). @ -None done X-rays interpreted by me (1pt min.). @ -None done CT interpreted by me (1pt min.). @ -None done U/S interpreted by me (1pt. min.). @ -None done What testing was considered but not performed or refused? (CT, X-rays, U/S, labs)? Why? @ -None What meds were considered but not given or refused? Why? @ -None Was smoking cessation discussed for >3mins.? @ -No Were there social determinants of health that impacted care today? How? (Homelessness, low income, unemployed, alcoholism, drug addiction, transportation, low edu. Level, literacy, decrease access to med. care, [facility], rehab)? @ -No Was there de-escalation of care discussed even if they declined (Discuss DNR or withdrawal of care, Hospice)? DNR status @ -No What co-morbidities impacted this encounter? (DM, HTN, Smoking, COPD, CAD, Cancer, CVA, ARF, Chemo, Hep., AIDS, mental health diagnosis, sleep apnea, morbid obesity)? @ -None Was patient admitted / discharged? Hospital course, mention meds given and route, prescriptions, significant lab abnormalities, going to OR and other pertinent info. @ -29-year-old female presents with agitation and anxiety. Vital signs stable. Patient denies any other medical complaints. Labs are unremarkable. Patient given some anxiolytic medication reevaluated bedside at 2:00 PM found to be in improved condition. Patient agreeable for discharge given outpatient referral to GI for what she describes as chronic gallbladder issues. Did you discuss the management of the patient with other professionals (professionals i.e. , PA, ASSISTANCE SPECIALIST, lab, RT, psych nurse, social worker school, spinner box, teacher, chief fundraising officer, employment case manager)? Give summary @ -No Was critical care preformed (if so, how long)? @ -No Undiagnosed new problem with uncertain prognosis? @ -No Drug Therapy requiring intensive monitoring for toxicity (Heparin, Nitro, Insulin, Cardizem)? @ -No Were any procedures done? @ -No Diagnosis/symptom? Acute, or Chronic, or Acute on Chronic? Uncomplicated (without systemic symptoms) or Complicated (systemic symptoms)? @ -Reaction Side effects of treatment? @ -No Exacerbation, Progression, or Severe Exacerbation? @ -No Poses a threat to life or bodily function? How? (Chest pain, USA, [place], pneumonia, PE, COPD, DKA, ARF, appy, cholecystitis, CVA, Diverticulitis, Homicidal, Suicidal, threat to staff... and all critical care pts) @ -No - Lab Data Result diagrams: 01/01/25 13:00 01/01/25 13:00 Lab Results 01/01/25 01/01/25 Range/Units 13:00 13:00 WBC 9.09 (4.50-10.00) 10*3/uL RBC 4.33 (4.10-5.20) 10*6/uL Hgb 13.0 (12.0-15.0) g/dL Hct 37.6 (37.2-46.3) % MCV 86.8 (80.0-97.0) fL MCH 30.0 (27.0-32.0) pg MCHC 34.6 (32.0-37.0) g/dL Plt Count 274 (140-440) 10*3/uL MPV 10.9 (9.5-12.2) fL Immature Gran % (Auto) 0.2 % Neutrophils % 72.8 % Lymphocytes % 19.9 % Monocytes % 6.2 % Eosinophils % 0.3 % Basophils % 0.6 % Immature Gran # 0.02 (0.00-0.04) 10*3/uL Neutrophils # 6.62 (1.80-7.70) 10*3/uL Lymphocytes # 1.81 (0.90-5.00) 10*3/uL Monocytes # 0.56 (0.20-1.00) 10*3/uL Eosinophils # 0.03 L (0.04-0.35) 10*3/uL Basophils # 0.05 (0.00-0.10) 10*3/uL Sodium 139 (137-145) mmol/L Potassium 3.9 (3.5-5.1) mmol/L Chloride 105 (98-107) mmol/L Carbon Dioxide 28 (22-30) mmol/L Anion Gap 6 mmol/L BUN 9 (7-17) mg/dL Creatinine 0.44 L (0.52-1.04) mg/dL Est GFR (CKD-EPI)AfAm >90 (>60 ml/min/1.73 sqM) Est GFR (CKD-EPI)NonAf >90 (>60 ml/min/1.73 sqM) Glucose 130 H (74-99) mg/dL Calcium 10.5 H (8.4-10.2) mg/dL Disposition Clinical Impression: Anxiety reaction Disposition: HOME SELF-CARE Condition: Good Is patient prescribed a controlled substance at d/c from ED?: No Referrals: Burke Cope MD [Primary Care Provider] - 1-2 days Chata Spence MD [STAFF PHYSICIAN] - 1-2 days Time of Disposition: 14:02
[2025-01-01 13:21] LABS: Basophils # (A) 0.05 10*3/uL (0.00-0.10); Basophils % (A) 0.6 %; Eosinophils # (A) 0.03 10*3/uL (0.04-0.35); Eosinophils % (A) 0.3 %; HCT 37.6 % (37.2-46.3); Lymphocytes # (A) 1.81 10*3/uL (0.90-5.00); Lymphocytes % (A) 19.9 %; MCHC 34.6 g/dL (32.0-37.0); MCV 86.8 fL (80.0-97.0); Mean Platelet Volume 10.9 fL (9.5-12.2); Monocytes # (A) 0.56 10*3/uL (0.20-1.00); Monocytes % (A) 6.2 %; Neutrophils # (A) 6.62 10*3/uL (1.80-7.70); Neutrophils % (A) 72.8 %; Platelet Count 274 10*3/uL (140-440); RBC 4.33 10*6/uL (4.10-5.20); RDW 13.4 % (11.5-14.5); WBC 9.09 10*3/uL (4.50-10.00)
[2025-01-01 13:26] LABS: African American GFR (CKD) >90 (>60 ml/min/1.73 sqM); Anion Gap 6 mmol/L; Blood Urea Nitrogen 9 mg/dL (7-17); Carbon Dioxide 28 mmol/L (22-30); Chloride 105 mmol/L (98-107); Glucose 130 mg/dL (74-99); Potassium 3.9 mmol/L (3.5-5.1); Sodium 139 mmol/L (137-145)
[2025-01-01 13:27] LABS: Calcium 10.5 mg/dL (8.4-10.2); Non-African American GFR(CKD) >90 (>60 ml/min/1.73 sqM)
[2025-01-01 14:27] VITALS: BP 110/73; PULSE 94; RESP 16; TEMP 98.6
== END 2025-01-01 14:29 | disposition home or self-care (01) ==
LOC: EC 11:42
DX: F41.1 Generalized anxiety disorder (principal); F17.290 Nicotine dependence, other tobacco product, uncomplicated; Z88.5 Allergy status to narcotic agent; Z88.6 Allergy status to analgesic agent
CPT/HCPCS: 36415; 80048; 85025; 99284; 96374; J2060

== ENCOUNTER 2025-01-06 08:56 | Emergency (ER) | payer OTHER ==
[2025-01-06 09:07] VITALS: BP 111/78; PULSE 77; RESP 20; TEMP 98.3
--- NOTE | 2025-01-06 10:34 | ED ---
Abdominal Pain HPI - General Chief Complaint: Abdominal Pain Stated Complaint: ABD Pain Time Seen by Provider: 01/06/25 09:14 Source: patient, RN notes reviewed Mode of arrival: ambulatory Limitations: no limitations - History of Present Illness Initial Comments: 29-year-old female presents emergency department with chief complaint of abdominal pain. Patient states she has reflux, increasing burping nausea. She states she has some upper abdominal discomfort that she has been having gallbladder liver and reflux issues she is scheduled with Dr. Luo tomorrow. She states she tried some [id number] Tums and simethicone without relief. Patient states that she has no change in bowel habits no dysuria she has had a prior hysterectomy. - Related Data Home Medications Medication Instructions Recorded Confirmed Ondansetron [Zofran] 4 mg PO Q8HR PRN 01/21/23 03/21/23 Vit No.180/Iron/Folic 1 tab PO DAILY 01/21/23 03/21/23 [ Plus Vitamin-Mineral] Omeprazole [PriLOSEC] 10 mg PO DAILY 03/07/23 03/21/23 Previous Rx's Medication Instructions Recorded Lidocaine 5% Patch [Lidoderm 5% 1 patch TOPICAL DAILY PRN #30 patch 06/16/23 Patch] Famotidine [Pepcid] 20 mg PO BID #28 tablet 10/10/23 Sucralfate [Carafate] 1 gm PO BID #30 tablet 10/10/23 Ibuprofen [Motrin] 800 mg PO Q8H PRN #30 tab 01/19/24 Amoxic-Pot Clav 875-125Mg 1 tab PO Q12HR 7 Days #14 tab 07/15/24 [Augmentin 875-125] Dicyclomine [Bentyl] 20 mg PO QID #15 tablet 10/22/24 Famotidine [Pepcid] 20 mg PO BID #14 tablet 10/22/24 Allergies Allergy/AdvReac Type Severity Reaction Status Date / Time codeine Allergy Hallucinati Verified 01/06/25 09:07 ons ketorolac [From Toradol] Allergy Nausea & Verified 01/06/25 09:07 Vomiting Review of Systems ROS Statement: Those systems with pertinent positive or pertinent negative responses have been documented in the HPI. ROS Other: All systems not noted in ROS Statement are negative. 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 History of Any Multi-Drug Resistant Organisms: None Reported Date of last positivie culture/infection: 12/02/19 MDRO Source:: MRSA LEFT AXILLA Past Surgical History: Section, Hysterectomy Past Anesthesia/Blood Transfusion Reactions: No Reported Reaction Additional Past Anesthesia/Blood Transfusion Reaction / Comment(s): NO ANESTH HX Past Psychological History: Anxiety, Depression Smoking Status: Vaper Past Alcohol Use History: Rare Past Drug Use History: Marijuana - Past Family History Father History Unknown: Yes Additional Family Medical History / Comment(s): Father resides in [facility] and pt does not know his medical hx. Mother Family Medical History: No Reported History Additional Family Medical History / Comment(s): 4 brain anyresms General Exam Limitations: no limitations General appearance: alert, in no apparent distress Head exam: Present: atraumatic, normocephalic, normal inspection Eye exam: Present: normal appearance, PERRL, EOMI. Absent: scleral icterus, conjunctival injection, periorbital swelling ENT exam: Present: normal exam, mucous membranes moist Neck exam: Present: normal inspection, full ROM. Absent: tenderness, meningismus, lymphadenopathy Respiratory exam: Present: normal lung sounds bilaterally. Absent: respiratory distress, wheezes, rales, rhonchi, stridor Cardiovascular Exam: Present: regular rate, normal rhythm, normal heart sounds. Absent: systolic murmur, diastolic murmur, rubs, gallop, clicks GI/Abdominal exam: Present: soft, tenderness, normal bowel sounds. Absent: distended, guarding, rebound, rigid Course Vital Signs 01/06/25 09:05 Temperature 98.3 F Pulse Rate 77 Respiratory 20 Rate Blood Pressure 111/78 O2 Sat by Pulse 99 Oximetry Medical Decision Making - Medical Decision Making Was pt. sent in by a medical professional or institution (, PA, NURSING HOME PHYSICIAN, urgent care, hospital, or residential...) When possible be specific @ -No Did you speak to anyone other than the patient for history (EMS, parent, family, police, friend...)? What history was obtained from this source @ -No Did you review nursing and triage notes (agree or disagree)? Why? @ -I reviewed and agree with nursing and triage notes Were old charts reviewed (outside hosp., previous admission, EMS record, old EKG, old radiological studies, urgent care reports/EKG's, residential records)? Report findings @ -No old charts were reviewed Differential Diagnosis (chest pain, altered mental status, abdominal pain women, abdominal pain men, vaginal bleeding, weakness, fever, dyspnea, syncope, headache, dizziness, GI bleed, back pain, seizure, CVA, palpatations, mental health, musculoskeletal)? @ -Differential Abdominal Pain Women: Appendicitis, Cholecystitis, diverticulosis, ischemic bowel, pancreatitis, hepatitis, UTI, gastroenteritis, AAA, incarcerated hernia, bowel obstruction, constipation, inflammatory bowel, hepatitis, peptic ulcer disease, splenic infarction, perforated viscus, vulvitis, ovarian torsion, PID, kidney stone, placenta abruption, this is not meant to be an all-inclusive list EKG interpreted by me (3pts min.). @ -None X-rays interpreted by me (1pt min.). @ -None done CT interpreted by me (1pt min.). @ -None done U/S interpreted by me (1pt. min.). @ -None done What testing was considered but not performed or refused? (CT, X-rays, U/S, labs)? Why? @ -Labs, x-ray, urinalysis were ordered along with medication patient refused all after she states she has an appointment with her GI specialist. What meds were considered but not given or refused? Why? @ -None Did you discuss the management of the patient with other professionals (professionals i.e. , PA, NURSING HOME PHYSICIAN, lab, RT, psych nurse, dialysis social worker, conservation worker, teacher, property utilization officer, cyanide case hardener)? Give summary @ -No Was smoking cessation discussed for >3mins.? @ -No Was critical care preformed (if so, how long)? @ -No Were there social determinants of health that impacted care today? How? (Homelessness, low income, unemployed, alcoholism, drug addiction, transportation, low edu. Level, literacy, decrease access to med. care, shelter, rehab)? @ -No Was there de-escalation of care discussed even if they declined (Discuss DNR or withdrawal of care, Hospice)? DNR status @ -No What co-morbidities impacted this encounter? (DM, HTN, Smoking, COPD, CAD, Cancer, CVA, ARF, Chemo, Hep., AIDS, mental health diagnosis, sleep apnea, morbid obesity)? @ -None Was patient admitted / discharged? Hospital course, mention meds given and route , prescriptions, significant lab abnormalities, going to OR and other pertinent info. @ -Discharge patient requested to be discharged she is refusing all testing including labs, imaging. Patient understands the risk of leaving. Patient discharged in stable condition return for as discussed. Undiagnosed new problem with uncertain prognosis? @ -No Drug Therapy requiring intensive monitoring for toxicity (Heparin, Nitro, Insulin, Cardizem)? @ -No Were any procedures done? @ -No Diagnosis/symptom? @ -Abdominal pain Acute, or Chronic, or Acute on Chronic? @ -Acute Uncomplicated (without systemic symptoms) or Complicated (systemic symptoms)? @ -Uncomplicated Side effects of treatment? @ -No Exacerbation, Progression, or Severe Exacerbation? @ -No Poses a threat to life or bodily function? How? (Chest pain, USA, [place], pneumonia, PE, COPD, DKA, ARF, appy, cholecystitis, CVA, Diverticulitis, Homicidal, Suicidal, threat to staff... and all critical care pts) @ -No Disposition Clinical Impression: Abdominal pain Disposition: HOME SELF-CARE Condition: Stable Instructions (If sedation given, give patient instructions): Abdominal Pain (ED) Additional Instructions: Please return to the Emergency Department if symptoms worsen or any other concerns. Is patient prescribed a controlled substance at d/c from ED?: No Referrals: Burke Cope MD [Primary Care Provider] - 1-2 days Time of Disposition: 10:33
[2025-01-06] MEDS: LACTATED RINGERS 1,000 ML IV ONE (10:40)
[2025-01-06] MEDS: MAG HYDROX/AL HYDROX/SIMETH 30 ML CUP PO STA (10:40)
[2025-01-06] MEDS: METOCLOPRAMIDE 5 MG/ML 2 ML VIAL IVP STA (10:40)
[2025-01-06] MEDS: PANTOPRAZOLE 40 MG/10 ML VIAL IVP STA (10:40)
== END 2025-01-06 10:43 | disposition home or self-care (01) ==
LOC: EC 08:56
DX: R10.9 Unspecified abdominal pain (principal); F17.290 Nicotine dependence, other tobacco product, uncomplicated; Z88.5 Allergy status to narcotic agent; Z88.8 Allergy status to other drugs, medicaments and biological substances
CPT/HCPCS: 99283

== ENCOUNTER 2025-01-07 09:24 | Emergency (ER) | payer OTHER ==
--- NOTE | 2025-01-07 09:52 | ED ---
Abdominal Pain HPI - General Chief Complaint: Abdominal Pain Stated Complaint: abd pain,chest pain,vomiting Time Seen by Provider: 01/07/25 09:31 Source: patient, RN notes reviewed Mode of arrival: ambulatory Limitations: no limitations - History of Present Illness Initial Comments: 29-year-old female presenting to the emergency department for complaints of intermittent abdominal pain over the past year. Patient states that she was evaluated yesterday however left before being evaluated and had an appointment with her GI specialist. Patient states that she had multiple lab test completed and an image of her belly with follow-up scheduled early next week. She states the pain is described as a burning sensation in her upper abdomen and in her lower abdomen. She states that she is scheduled to have her gallbladder removed. She endorses intermittent associated nausea and vomiting. States that she normally cycles with constipation and has mild small stools. Previous hysterectomy. - Related Data Home Medications Medication Instructions Recorded Confirmed Ondansetron [Zofran] 4 mg PO Q8HR PRN 01/21/23 03/21/23 Vit No.180/Iron/Folic 1 tab PO DAILY 01/21/23 03/21/23 [ Plus Vitamin-Mineral] Omeprazole [PriLOSEC] 10 mg PO DAILY 03/07/23 03/21/23 Previous Rx's Medication Instructions Recorded Lidocaine 5% Patch [Lidoderm 5% 1 patch TOPICAL DAILY PRN #30 patch 06/16/23 Patch] Famotidine [Pepcid] 20 mg PO BID #28 tablet 10/10/23 Sucralfate [Carafate] 1 gm PO BID #30 tablet 10/10/23 Ibuprofen [Motrin] 800 mg PO Q8H PRN #30 tab 01/19/24 Amoxic-Pot Clav 875-125Mg 1 tab PO Q12HR 7 Days #14 tab 07/15/24 [Augmentin 875-125] Dicyclomine [Bentyl] 20 mg PO QID #15 tablet 10/22/24 Famotidine [Pepcid] 20 mg PO BID #14 tablet 10/22/24 Allergies Allergy/AdvReac Type Severity Reaction Status Date / Time codeine Allergy Hallucinati Verified 01/07/25 09:30 ons ketorolac [From Toradol] Allergy Nausea & Verified 01/07/25 09:30 Vomiting Review of Systems ROS Statement: Those systems with pertinent positive or pertinent negative responses have been documented in the HPI. ROS Other: All systems not noted in ROS Statement are negative. 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 History of Any Multi-Drug Resistant Organisms: None Reported Date of last positivie culture/infection: 12/02/19 MDRO Source:: MRSA LEFT AXILLA Past Surgical History: Section, Hysterectomy Past Anesthesia/Blood Transfusion Reactions: No Reported Reaction Additional Past Anesthesia/Blood Transfusion Reaction / Comment(s): NO ANESTH HX Past Psychological History: Anxiety, Depression Smoking Status: Vaper Past Alcohol Use History: Rare Past Drug Use History: Marijuana - Past Family History Father History Unknown: Yes Additional Family Medical History / Comment(s): Father resides in [facility] and pt does not know his medical hx. Mother Family Medical History: No Reported History Additional Family Medical History / Comment(s): 4 brain anyresms General Exam Limitations: no limitations General appearance: alert, in no apparent distress Neck exam: Present: normal inspection. Absent: tenderness, meningismus, lymphadenopathy Respiratory exam: Present: normal lung sounds bilaterally. Absent: respiratory distress, wheezes, rales, rhonchi, stridor Cardiovascular Exam: Present: regular rate, normal rhythm, normal heart sounds. Absent: systolic murmur, diastolic murmur, rubs, gallop, clicks GI/Abdominal exam: Present: soft, tenderness (epigastric, RUQ), normal bowel sounds. Absent: distended, guarding, rebound, rigid Extremities exam: Present: normal inspection, full ROM, normal capillary refill. Absent: tenderness, pedal edema, joint swelling, calf tenderness Back exam: Present: normal inspection. Absent: CVA tenderness (R), CVA te nderness (L) Course Vital Signs 01/07/25 01/07/25 09:27 11:00 Pulse Rate 98 82 Respiratory 18 20 Rate Blood Pressure 128/80 126/80 O2 Sat by Pulse 99 99 Oximetry Medical Decision Making - Medical Decision Making Was pt. sent in by a medical professional or institution (, PA, INDUSTRIAL MACHINERY MECHANIC, urgent care, hospital, or shelter...) When possible be specific @ -no Did you speak to anyone other than the patient for history (EMS, parent, family, police, friend...)? What history was obtained from this source @ -[No] Did you review nursing and triage notes (agree or disagree)? Why? @ -[I reviewed and agree with nursing and triage notes] Were old charts reviewed (outside hosp., previous admission, EMS record, old EKG, old radiological studies, urgent care reports/EKG's, shelter records)? Report findings @ -Reviewed patient's chart note from 01/06/2025 where she presented to emergency department however left prior to labs or imaging and had follow-up appointment with her GI specialist the same day. Differential Diagnosis (chest pain, altered mental status, abdominal pain women, abdominal pain men, vaginal bleeding, weakness, fever, dyspnea, syncope, headache, dizziness, GI bleed, back pain, seizure, CVA, palpatations, mental health, musculoskeletal)? @ -Differential Abdominal Pain Women: Appendicitis, Cholecystitis, diverticulosis, ischemic bowel, pancreatitis, hepa titis, UTI, gastroenteritis, AAA, incarcerated hernia, bowel obstruction, constipation, inflammatory bowel, hepatitis, peptic ulcer disease, splenic infarction, perforated viscus, vulvitis, ovarian torsion, PID, kidney stone, placenta abruption, this is not meant to be an all-inclusive list EKG interpreted by me (3pts min.). @ -None X-rays interpreted by me (1pt min.). @ -[None done] CT interpreted by me (1pt min.). @ -[None done] U/S interpreted by me (1pt. min.). @ -Ultrasound of the gallbladder completed with no evidence for acute process, cholelithiasis without evidence for acute cholecystitis. What testing was considered but not performed or refused? (CT, X-rays, U/S, labs)? Why? @ -[None] What meds were considered but not given or refused? Why? @ -[None] Did you discuss the management of the patient with other professionals (professionals i.e. , PA, INDUSTRIAL MACHINERY MECHANIC, lab, RT, psych nurse, healthcare social worker, claims collector, teacher, chief privacy officer, showcase trimmer)? Give summary @ -[No] Was smoking cessation discussed for >3mins.? @ -[No] Was critical care preformed (if so, how long)? @ -[No] Were there social determinants of health that impacted care today? How? (Homelessness, low income, unemployed, alcoholism, drug addiction, transportation, low edu. Level, literacy, decrease access to med. care, custodial, rehab)? @ -[No] Was there de-escalation of care discussed even if they declined (Discuss DNR or withdrawal of care, Hospice)? DNR status @ -[No] What co-morbidities impacted this encounter? (DM, HTN, Smoking, COPD, CAD, Cancer, CVA, ARF, Chemo, Hep., AIDS, mental health diagnosis, sleep apnea, morbid obesity)? @ -[None] Was patient admitted / discharged? Hospital course, mention meds given and route, prescriptions, significant lab abnormalities, going to OR and other pertinent info. @ -Discharge. 29-year-old female presents emergency department with inte rmittent abdominal pain described as a burning sensation over the past year. Patient is mildly reproducible on examination. She is provided with IV fluids, Protonix, Zofran and morphine for pain relief. Laboratory test including CBC, CMP, urinalysis unremarkable. Ultrasound no acute intra-abdominal process, no evidence of acute cystitis. Patient is scheduled for follow-up with GI specialist on Saturday. Case discussed with Dr. Adler Undiagnosed new problem with uncertain prognosis? @ -[No] Drug Therapy requiring intensive monitoring for toxicity (Heparin, Nitro, Insulin, Cardizem)? @ -[No] Were any procedures done? @ -[No] Diagnosis/symptom? @ -Abdominal pain, biliary colic Acute, or Chronic, or Acute on Chronic? @ -Acute Uncomplicated (without systemic symptoms) or Complicated (systemic symptoms)? @ -Uncomplicated Side effects of treatment? @ -[No] Exacerbation, Progression, or Severe Exacerbation? @ -[No] Poses a threat to life or bodily function? How? (Chest pain, USA, VT, pneumonia, PE, COPD, DKA, ARF, appy, cholecystitis, CVA, Diverticulitis, Homicidal, Suicidal, threat to staff... and all critical care pts) @ -[No] - Lab Data Result diagrams: 01/07/25 09:53 01/07/25 09:53 Lab Results 01/07/25 01/07/25 01/07/25 Range/Units 09:53 09:53 09:53 WBC 8.51 (4.50-10.00) 10*3/uL RBC 4.30 (4.10-5.20) 10*6/uL Hgb 12.7 (12.0-15.0) g/dL Hct 37.2 (37.2-46.3) % MCV 86.5 (80.0-97.0) fL MCH 29.5 (27.0-32.0) pg MCHC 34.1 (32.0-37.0) g/dL Plt Count 295 (140-440) 10*3/uL MPV 10.6 (9.5-12.2) fL Immature Gran % (Auto) 0.2 % Neutrophils % 75.4 % Lymphocytes % 18.2 % Monocytes % 4.8 % Eosinophils % 0.9 % Basophils % 0.5 % Immature Gran # 0.02 (0.00-0.04) 10*3/uL Neutrophils # 6.41 (1.80-7.70) 10*3/uL Lymphocytes # 1.55 (0.90-5.00) 10*3/uL Monocytes # 0.41 (0.20-1.00) 10*3/uL Eosinophils # 0.08 (0.04-0.35) 10*3/uL Basophils # 0.04 (0.00-0.10) 10*3/uL Sodium 140 (137-145) mmol/L Potassium 3.8 (3.5-5.1) mmol/L Chloride 105 (98-107) mmol/L Carbon Dioxide 26 (22-30) mmol/L Anion Gap 9 mmol/L BUN 12 (7-17) mg/dL Creatinine 0.53 (0.52-1.04) mg/dL Est GFR (CKD-EPI)AfAm >90 (>60 ml/min/1.73 sqM) Est GFR (CKD-EPI)NonAf >90 (>60 ml/min/1.73 sqM) Glucose 133 H (74-99) mg/dL Calcium 10.3 H (8.4-10.2) mg/dL Total Bilirubin 0.7 (0.2-1.3) mg/dL AST 25 (14-36) U/L ALT 29 (4-34) U/L Alkaline Phosphatase 59 (38-126) U/L Total Protein 7.4 (6.3-8.2) g/dL Albumin 4.6 (3.5-5.0) g/dL Amylase 89 (30-110) U/L Lipase 87 (23-300) U/L Urine Color Yellow Urine Appearance Cloudy H (Clear) Urine pH 8.5 H (5.0-8.0) Ur Specific Silver 1.030 (1.001-1.035) Urine Protein Trace H (Negative) Urine Glucose (UA) Negative (Negative) Urine Ketones 1+ H (Negative) Urine Blood Negative (Negative) Urine Nitrite Negative (Negative) Urine Bilirubin Negative (Negative) Urine Urobilinogen 2.0 (<2.0) mg/dL Ur Leukocyte Esterase Negative (Negative) Urine RBC 1 (0-5) /hpf Urine WBC <1 (0-5) /hpf Ur Squamous Epith Cells 4 (0-4) /hpf Urine Mucus Many H (None) /hpf Disposition Clinical Impression: Biliary colic Disposition: HOME SELF-CARE Condition: Good Instructions (If sedation given, give patient instructions): Biliary Colic (ED) Additional Instructions: Please return to the Emergency Department if symptoms worsen or any other concerns. Follow-up as scheduled with GI specialist next week. Is patient prescribed a controlled substance at d/c from ED?: No Referrals: Burke Cope MD [Primary Care Provider] - 1-2 days Time of Disposition: 11:29
[2025-01-07] MEDS: ONDANSETRON 4 MG/2 ML VIAL IVP STA (09:57)
[2025-01-07] MEDS: SODIUM CHLORIDE 0.9% 1,000 ML IV ONE (09:59)
[2025-01-07] MEDS: PANTOPRAZOLE 40 MG/10 ML VIAL IVP STA (09:59)
[2025-01-07 10:03] LABS: Basophils # (A) 0.04 10*3/uL (0.00-0.10); Basophils % (A) 0.5 %; Eosinophils # (A) 0.08 10*3/uL (0.04-0.35); Eosinophils % (A) 0.9 %; HCT 37.2 % (37.2-46.3); HGB 12.7 g/dL (12.0-15.0); Lymphocytes # (A) 1.55 10*3/uL (0.90-5.00); Lymphocytes % (A) 18.2 %; MCH 29.5 pg (27.0-32.0); MCHC 34.1 g/dL (32.0-37.0); MCV 86.5 fL (80.0-97.0); Mean Platelet Volume 10.6 fL (9.5-12.2); Monocytes # (A) 0.41 10*3/uL (0.20-1.00); Monocytes % (A) 4.8 %; Neutrophils # (A) 6.41 10*3/uL (1.80-7.70); Neutrophils % (A) 75.4 %; Platelet Count 295 10*3/uL (140-440); RDW 13.4 % (11.5-14.5); WBC 8.51 10*3/uL (4.50-10.00)
[2025-01-07] MEDS: MORPHINE SULFATE 2 MG/ML SYRINGE IVP ONE (10:03)
[2025-01-07 10:16] LABS: ALT 29 U/L (4-34); AST 25 U/L (14-36); African American GFR (CKD) >90 (>60 ml/min/1.73 sqM); Albumin 4.6 g/dL (3.5-5.0); Alkaline Phosphatase 59 U/L (38-126); Amylase 89 U/L (30-110); Anion Gap 9 mmol/L; Blood Urea Nitrogen 12 mg/dL (7-17); Calcium 10.3 mg/dL (8.4-10.2); Carbon Dioxide 26 mmol/L (22-30); Chloride 105 mmol/L (98-107); Glucose 133 mg/dL (74-99); Lipase 87 U/L (23-300); Non-African American GFR(CKD) >90 (>60 ml/min/1.73 sqM); Potassium 3.8 mmol/L (3.5-5.1); Sodium 140 mmol/L (137-145); Total Bilirubin 0.7 mg/dL (0.2-1.3); Total Protein 7.4 g/dL (6.3-8.2)
[2025-01-07 10:27] LABS: Appearance,Urine Cloudy (Clear); Bilirubin,Urine Negative (Negative); Blood,Urine Negative (Negative); Color,Urine Yellow; Glucose,Urine (UA) Negative (Negative); Ketones,Urine 1+ (Negative); Leukocyte Esterase,Urine Negative (Negative); Mucus,Urine Many /hpf; Nitrite,Urine Negative (Negative); PH, Urine 8.5 (5.0-8.0); Protein,Urine Trace (Negative); RBC,Urine 1 /hpf (0-5); Squamous Epithelial Cell,Urine 4 /hpf (0-4); WBC,Urine <1 /hpf (0-5)
--- NOTE | 2025-01-07 10:57 | US ---
EXAMINATION TYPE: US gallbladder DATE OF EXAM: 01/07/2025 COMPARISON: NONE CLINICAL INDICATION: Female, 29 years old with history of epigastric ab pain; abd pain, n/v TECHNIQUE: Grayscale and color Doppler imaging of the right upper quadrant. FINDINGS: EXAM MEASUREMENTS: Liver Length: 14.9 cm Gallbladder Wall: 0.1 cm CBD: 0.2 cm, color Doppler imaging was utilized to isolate the common bile duct for measurement. Right Kidney: 10.0x3.1x6.1 cm [employer] NOTES: Pancreas: wnl Liver: no abnormalities seen Gallbladder: echogenic foci seen w posterior shadowing Largest: 1.3cm, 0.9cm Evidence for sonographic Becerra's sign: No CBD: wnl Right Kidney: No hydronephrosis or masses seen The pancreas is within normal limits. The liver appears unremarkable without focal lesion. Gallstones are identified without evidence of wall thickening or surrounding fluid. Negative sonographic Becerra 's sign. Common bile duct is within normal limits. Right kidney demonstrates no shadowing calculus, h ydronephrosis or solid mass. IMPRESSION: 1. No ultrasound evidence for acute process. 2. Cholelithiasis without evidence for acute cholecystitis. [facility], , 01/07/2025 10:55 AM
[2025-01-07 11:31] VITALS: BP 126/80; PULSE 82; RESP 20
== END 2025-01-07 11:38 | disposition home or self-care (01) ==
LOC: EC 09:24
DX: K80.70 Calculus of gallbladder and bile duct without cholecystitis without obstruction (principal); F17.290 Nicotine dependence, other tobacco product, uncomplicated; Z88.5 Allergy status to narcotic agent; Z88.6 Allergy status to analgesic agent
CPT/HCPCS: 36415; 80053; 82150; 83690; 85025; 81001; 76705; 99285; 96374; 96375 ×2; 96361; J2405; J2270; J2470

== ENCOUNTER 2025-01-08 08:10 | Emergency (ER) | payer OTHER ==
[2025-01-08 08:29] VITALS: TEMP 98.1
[2025-01-08 10:37] LABS: Appearance,Urine Clear (Clear); Bilirubin,Urine Negative (Negative); Blood,Urine Negative (Negative); Color,Urine Colorless; Glucose,Urine (UA) Negative (Negative); Ketones,Urine Negative (Negative); Leukocyte Esterase,Urine Negative (Negative); Mucus,Urine Rare /hpf; Nitrite,Urine Negative (Negative); Protein,Urine Negative (Negative); RBC,Urine 1 /hpf (0-5); Specific Gravity,Urine 1.016 (1.001-1.035); Squamous Epithelial Cell,Urine 7 /hpf (0-4); Urobilinogen,Urine <2.0 mg/dL (<2.0); WBC,Urine 1 /hpf (0-5)
[2025-01-08 10:47] LABS: ALT 33 U/L (4-34); AST 35 U/L (14-36); African American GFR (CKD) >90 (>60 ml/min/1.73 sqM); Albumin 4.5 g/dL (3.5-5.0); Alkaline Phosphatase 54 U/L (38-126); Amylase 93 U/L (30-110); Anion Gap 10 mmol/L; Blood Urea Nitrogen 11 mg/dL (7-17); Calcium 10.1 mg/dL (8.4-10.2); Carbon Dioxide 25 mmol/L (22-30); Chloride 105 mmol/L (98-107); Glucose 130 mg/dL (74-99); Lipase 92 U/L (23-300); Magnesium 1.7 mg/dL (1.6-2.3); Non-African American GFR(CKD) >90 (>60 ml/min/1.73 sqM); Potassium 3.8 mmol/L (3.5-5.1); Sodium 140 mmol/L (137-145); Total Bilirubin 0.6 mg/dL (0.2-1.3); Total Protein 7.1 g/dL (6.3-8.2)
[2025-01-08 10:48] LABS: Basophils # (A) 0.03 10*3/uL (0.00-0.10); Basophils % (A) 0.4 %; Eosinophils # (A) 0.07 10*3/uL (0.04-0.35); Eosinophils % (A) 0.8 %; HCT 37.3 % (37.2-46.3); HGB 12.7 g/dL (12.0-15.0); Lymphocytes % (A) 13.1 %; MCH 29.8 pg (27.0-32.0); MCV 87.6 fL (80.0-97.0); Mean Platelet Volume 10.7 fL (9.5-12.2); Monocytes # (A) 0.37 10*3/uL (0.20-1.00); Monocytes % (A) 4.4 %; Neutrophils % (A) 80.9 %; Platelet Count 281 10*3/uL (140-440); RBC 4.26 10*6/uL (4.10-5.20); RDW 13.5 % (11.5-14.5)
[2025-01-08] MEDS: DICYCLOMINE 10 MG/ML 2 ML AMP IM STA (11:05)
[2025-01-08] MEDS: ONDANSETRON 4 MG/2 ML VIAL IVP STA (11:05)
[2025-01-08] MEDS: FAMOTIDINE 20 MG/2 ML VIAL IV STA (11:06)
--- NOTE | 2025-01-08 11:09 | ED ---
General Adult HPI - General Chief complaint: Recheck/Abnormal Lab/Rx Stated complaint: vomiting Time Seen by Provider: 01/08/25 08:41 Source: patient, family, RN notes reviewed Mode of arrival: ambulatory Limitations: no limitations - History of Present Illness Initial comments: Patient is a 29-year-old female present to the emergency department with concern for abdominal problems. Patient states she vomits daily. Patient complains of abdominal discomfort that has also daily. Symptoms have been occurring for the past year. Patient believes her symptoms are related to her gallbladder. Patient did see gastroenterology last week and has a follow-up next week. No diarrhea. Patient does have some constipation. No fever. - Related Data Home Medications Medication Instructions Recorded Confirmed Ondansetron [Zofran] 4 mg PO Q8HR PRN 01/21/23 03/21/23 Vit No.180/Iron/Folic 1 tab PO DAILY 01/21/23 03/21/23 [ Plus Vitamin-Mineral] Omeprazole [PriLOSEC] 10 mg PO DAILY 03/07/23 03/21/23 Previous Rx's Medication Instructions Recorded Lidocaine 5% Patch [Lidoderm 5% 1 patch TOPICAL DAILY PRN #30 patch 06/16/23 Patch] Famotidine [Pepcid] 20 mg PO BID #28 tablet 10/10/23 Sucralfate [Carafate] 1 gm PO BID #30 tablet 10/10/23 Ibuprofen [Motrin] 800 mg PO Q8H PRN #30 tab 01/19/24 Amoxic-Pot Clav 875-125Mg 1 tab PO Q12HR 7 Days #14 tab 07/15/24 [Augmentin 875-125] Dicyclomine [Bentyl] 20 mg PO QID #15 tablet 10/22/24 Famotidine [Pepcid] 20 mg PO BID #14 tablet 10/22/24 Ondansetron Odt [Zofran Odt] 4 mg PO Q8HR PRN #10 tab 01/08/25 Allergies Allergy/AdvReac Type Severity Reaction Status Date / Time codeine Allergy Hallucinati Verified 01/08/25 08:29 ons ketorolac [From Toradol] Allergy Nausea & Verified 01/08/25 08:29 Vomiting Review of Systems ROS Statement: Those systems with pertinent positive or pertinent negative responses have been documented in the HPI. ROS Other: All systems not noted in ROS Statement are negative. 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 History of Any Multi-Drug Resistant Organisms: None Reported Date of last positivie culture/infection: 12/02/19 MDRO Source:: MRSA LEFT AXILLA Past Surgical History: Section, Hysterectomy Past Anesthesia/Blood Transfusion Reactions: No Reported Reaction Additional Past Anesthesia/Blood Transfusion Reaction / Comment(s): NO ANESTH HX Past Psychological History: Anxiety, Depression Smoking Status: Vaper Past Alcohol Use History: Rare Past Drug Use History: Marijuana - Past Family History Father History Unknown: Yes Additional Family Medical History / Comment(s): Father resides in [facility] and pt does not know his medical hx. Mother Family Medical History: No Reported History Additional Family Medical History / Comment(s): 4 brain anyresms General Exam Limitations: no limitations General appearance: alert Head exam: Present: normocephalic Eye exam: Present: normal appearance Neck exam: Present: normal inspection Respiratory exam: Present: normal lung sounds bilaterally Cardiovascular Exam: Present: regular rate, normal rhythm GI/Abdominal exam: Present: soft, tenderness (Mild diffuse tenderness), normal bowel sounds. Absent: pulsatile mass Extremities exam: Present: normal inspection. Absent: pedal edema, calf tenderness Neurological exam: Present: alert Psychiatric exam: Present: anxious Skin exam: Present: normal color Course Vital Signs 01/08/25 01/08/25 01/08/25 08:26 09:29 11:00 Temperature 98.1 F Pulse Rate 80 88 100 Respiratory 18 20 20 Rate Blood Pressure 144/88 130/80 110/60 O2 Sat by Pulse 99 98 98 Oximetry 01/08/25 01/08/25 12:00 13:00 Temperature Pulse Rate 78 68 Respiratory 20 16 Rate Blood Pressure 130/94 125/68 O2 Sat by Pulse 100 98 Oximetry Medical Decision Making - Medical Decision Making Was pt. sent in by a medical professional or institution (, PA, STAFF NURSE MIDWIFE, urgent care, hospital, or penitentiary...) When possible be specific @ -No Did you speak to anyone other than the patient for history (EMS, parent, family, police, friend...)? What history was obtained from this source @ -Mother is present helps provide symptom duration Did you review nursing and triage notes (agree or disagree)? Why? @ -I reviewed and agree with nursing and triage notes Were old charts reviewed (outside hosp., previous admission, EMS record, old EKG, old radiological studies, urgent care reports/EKG's, penitentiary records)? Report findings @ -Previous charts and ultrasound reviewed Differential Diagnosis (chest pain, altered mental status, abdominal pain women, abdominal pain men, vaginal bleeding, weakness, fever, dyspnea, syncope, headache, dizziness, GI bleed, back pain, seizure, CVA, palpatations, mental health, musculoskeletal)? @ -Differential Abdominal Pain Women: Appendicitis, Cholecystitis, diverticulosis, ischemic bowel, pancreatitis, hepatitis, UTI, gastroenteritis, AAA, incarcerated hernia, bowel obstruction, constipation, inflammatory bowel, hepatitis, peptic ulcer disease, splenic infarction, perforated viscus, vulvitis, ovarian torsion, PID, kidney stone, placenta abruption, this is not meant to be an all-inclusive list EKG interpreted by me (3pts min.). @ -As above X-rays interpreted by me (1pt min.). @ -None done CT interpreted by me (1pt min.). @ -CT scan abdomen pelvis shows cholelithiasis U/S interpreted by me (1pt. min.). @ -None done What testing was considered but not performed or refused? (CT, X-rays, U/S, labs)? Why? @ -None What meds were considered but not given or refused? Why? @ -None Did you discuss the management of the patient with other professionals (professionals i.e. MARY JANE Ibanez, STAFF NURSE MIDWIFE, lab, RT, psych nurse, social work associate, microsoft windows engineer, teacher, fire control officer, casey saw operator)? Give summary @ -No Was smoking cessation discussed for >3mins.? @ -No Was critical care preformed (if so, how long)? @ -No Were there social determinants of health that impacted care today? How? (Homelessness, low income, unemployed, alcoholism, drug addiction, transportation, low edu. Level, literacy, decrease access to med. care, detention, rehab)? @ -No Was there de-escalation of care discussed even if they declined (Discuss DNR or withdrawal of care, Hospice)? DNR status @ -No What co-morbidities impacted this encounter? (DM, HTN, Smoking, COPD, CAD, Cancer, CVA, ARF, Chemo, Hep., AIDS, mental health diagnosis, sleep apnea, morb id obesity)? @ -Abdominal symptoms 1 year Was patient admitted / discharged? Hospital course, mention meds given and route, prescriptions, significant lab abnormalities, going to OR and other pertinent info. @ -Patient presents with 1 year of abdominal discomfort nausea and vomiting. Some constipation. Patient did see GI this week and has an appointment for follow-up next week. On reevaluation patient still has burning sensation and also request medication for constipation. Offered to discuss case with surgeon for possible admission however patient refuses. Patient will like to be disch arged and follow-up. Patient is updated on results. Undiagnosed new problem with uncertain prognosis? @ -No Drug Therapy requiring intensive monitoring for toxicity (Heparin, Nitro, Insulin, Cardizem)? @ -No Were any procedures done? @ -No Diagnosis/symptom? @ -Abdominal pain Acute, or Chronic, or Acute on Chronic? @ -Acute on chronic Uncomplicated (without systemic symptoms) or Complicated (systemic symptoms)? @ -Default Side effects of treatment? @ -No Exacerbation, Progression, or Severe Exacerbation? @ -No Poses a threat to life or bodily function? How? (Chest pain, [place], HI, pneumonia, PE, COPD, DKA, ARF, appy, cholecystitis, CVA, Diverticulitis, Homicidal, Suicidal, threat to staff... and all critical care pts) @ -No - Lab Data Result diagrams: 01/08/25 09:40 01/08/25 09:40 Lab Results 01/08/25 01/08/25 01/08/25 Range/Units 09:40 09:40 09:40 WBC 8.40 (4.50-10.00) 10*3/uL RBC 4.26 (4.10-5.20) 10*6/uL Hgb 12.7 (12.0-15.0) g/dL Hct 37.3 (37.2-46.3) % MCV 87.6 (80.0-97.0) fL MCH 29.8 (27.0-32.0) pg MCHC 34.0 (32.0-37.0) g/dL Plt Count 281 (140-440) 10*3/uL MPV 10.7 (9.5-12.2) fL Immature Gran % (Auto) 0.4 % Neutrophils % 80.9 % Lymphocytes % 13.1 % Monocytes % 4.4 % Eosinophils % 0.8 % Basophils % 0.4 % Immature Gran # 0.03 (0.00-0.04) 10*3/uL Neutrophils # 6.80 (1.80-7.70) 10*3/uL Lymphocytes # 1.10 (0.90-5.00) 10*3/uL Monocytes # 0.37 (0.20-1.00) 10*3/uL Eosinophils # 0.07 (0.04-0.35) 10*3/uL Basophils # 0.03 (0.00-0.10) 10*3/uL Sodium 140 (137-145) mmol/L Potassium 3.8 (3.5-5.1) mmol/L Chloride 105 (98-107) mmol/L Carbon Dioxide 25 (22-30) mmol/L Anion Gap 10 mmol/L BUN 11 (7-17) mg/dL Creatinine 0.49 L (0.52-1.04) mg/dL Est GFR (CKD-EPI)AfAm >90 (>60 ml/min/1.73 sqM) Est GFR (CKD-EPI)NonAf >90 (>60 ml/min/1.73 sqM) Glucose 130 H (74-99) mg/dL Calcium 10.1 (8.4-10.2) mg/dL Phosphorus 2.0 L (2.5-4.5) mg/dL Magnesium 1.7 (1.6-2.3) mg/dL Total Bilirubin 0.6 (0.2-1.3) mg/dL AST 35 (14-36) U/L ALT 33 (4-34) U/L Alkaline Phosphatase 54 (38-126) U/L Total Protein 7.1 (6.3-8.2) g/dL Albumin 4.5 (3.5-5.0) g/dL Amylase 93 (30-110) U/L Lipase 92 (23-300) U/L Urine Color Colorless Urine Appearance Clear (Clear) Urine pH 7.0 (5.0-8.0) Ur Specific [place] 1.016 (1.001-1.035) Urine Protein Negative (Negative) Urine Glucose (UA) Negative (Negative) Urine Ketones Negative (Negative) Urine Blood Negative (Negative) Urine Nitrite Negative (Negative) Urine Bilirubin Negative (Negative) Urine Urobilinogen <2.0 (<2.0) mg/dL Ur Leukocyte Esterase Negative (Negative) Urine RBC 1 (0-5) /hpf Urine WBC 1 (0-5) /hpf Ur Squamous Epith Cells 7 H (0-4) /hpf Urine Mucus Rare H (None) /hpf Urine HCG, Qual (Not Detectd) 01/08/25 Range/Units 09:40 WBC (4.50-10.00) 10*3/uL RBC (4.10-5.20) 10*6/uL Hgb (12.0-15.0) g/dL Hct (37.2-46.3) % MCV (80.0-97.0) fL MCH (27.0-32.0) pg MCHC (32.0-37.0) g/dL Plt Count (140-440) 10*3/uL MPV (9.5-12.2) fL Immature Gran % (Auto) % Neutrophils % % Lymphocytes % % Monocytes % % Eosinophils % % Basophils % % Immature Gran # (0.00-0.04) 10*3/uL Neutrophils # (1.80-7.70) 10*3/uL Lymphocytes # (0.90-5.00) 10*3/uL Monocytes # (0.20-1.00) 10*3/uL Eosinophils # (0.04-0.35) 10*3/uL Basophils # (0.00-0.10) 10*3/uL Sodium (137-145) mmol/L Potassium (3.5-5.1) mmol/L Chloride (98-107) mmol/L Carbon Dioxide (22-30) mmol/L Anion Gap mmol/L BUN (7-17) mg/dL Creatinine (0.52-1.04) mg/dL Est GFR (CKD-EPI)AfAm (>60 ml/min/1.73 sqM) Est GFR (CKD-EPI)NonAf (>60 ml/min/1.73 sqM) Glucose (74-99) mg/dL Calcium (8.4-10.2) mg/dL Phosphorus (2.5-4.5) mg/dL Magnesium (1.6-2.3) mg/dL Total Bilirubin (0.2-1.3) mg/dL AST (14-36) U/L ALT (4-34) U/L Alkaline Phosphatase (38-126) U/L Total Protein (6.3-8.2) g/dL Albumin (3.5-5.0) g/dL Amylase (30-110) U/L Lipase (23-300) U/L Urine Color Urine Appearance (Clear) Urine pH (5.0-8.0) Ur Specific [place] (1.001-1.035) Urine Protein (Negative) Urine Glucose (UA) (Negative) Urine Ketones (Negative) Urine Blood (Negative) Urine Nitrite (Negative) Urine Bilirubin (Negative) Urine Urobilinogen (<2.0) mg/dL Ur Leukocyte Esterase (Negative) Urine RBC (0-5) /hpf Urine WBC (0-5) /hpf Ur Squamous Epith Cells (0-4) /hpf Urine Mucus (None) /hpf Urine HCG, Qual Not Detected (Not Detectd) Disposition Clinical Impression: Abdominal pain Disposition: HOME SELF-CARE Condition: Stable Instructions (If sedation given, give patient instructions): Abdominal Pain (ED) Additional Instructions: [id number] Pepcid as needed. Prescription for nausea medication sent to pharmacy. Return for fever, increased pain, not tolerating oral intake, worsening symptoms or other concerns. Please follow-up with your machine operator packaging and surgeon next week. Prescriptions: Ondansetron Odt [Zofran Odt] 4 mg PO Q8HR PRN #10 tab PRN Reason: Nausea Is patient prescribed a controlled substance at d/c from ED?: No Referrals: Burke Cope MD [Primary Care Provider] - 1-2 days Abiel Roberson MD [STAFF PHYSICIAN] - 1-2 days Chata Spence MD [STAFF PHYSICIAN] - 1-2 days Time of Disposition: 13:31
--- NOTE | 2025-01-08 12:04 | CT ---
EXAMINATION TYPE: CT abdomen pelvis w con CT DLP: 331.1 mGycm, Automated exposure control for dose reduction was used. DATE OF EXAM: 01/08/2025 11:57 AM COMPARISON: Gallbladder ultrasound 01/07/2025, KUB radiograph 10/22/2024 CLINICAL INDICATION:Female, 29 years old with history of abp; abdominal pain, h/o gall bladder issues after surgery TECHNIQUE: Standard CT of the abdomen and pelvis following the administration of 100 cc of Isovue 3 00 IV contrast material. Coronal and sagittal reformats were performed. FINDINGS: Paucity of intra-abdominal fat limits evaluation. LOWER CHEST: Unremarkable ABDOMEN LIVER: Unremarkable GALLBLADDER AND BILE DUCTS: Cholelithiasis. No biliary ductal dilatation. PANCREAS: Unremarkable. SPLEEN: Unremarkable. ADRENAL GLANDS: Unremarkable. KIDNEYS AND URETERS: No evidence of hydronephrosis or renal calculus. The kidneys enhance symmetrical ly. Contrast is demonstrated within both collecting systems and proximal ureters on the delayed phase . PELVIS BLADDER: Incompletely distended but grossly unremarkable. REPRODUCTIVE: Unremarkable. ABDOMEN & PELVIS STOMACH AND BOWEL: Stomach and duodenum are unremarkable. No focal bowel wall thickening or surroundi ng inflammatory changes. The appendix is not confidently identified however there is no significant i nflammatory changes within the right lower quadrant. No evidence of bowel obstruction. PERITONEUM: No evidence of pneumoperitoneum or free fluid. VASCULATURE: No evidence of aortic aneurysm. Left-sided pelvic phleboliths. MUSCULOSKELETAL: No acute osseous abnormalities LYMPH NODES: No evidence for lymphadenopathy. SOFT TISSUE/ABDOMINAL WALL: Unremarkable IMPRESSION: 1. No CT evidence for acute abdominal/pelvic process. 2. Cholelithiasis. [facility], , 01/08/2025 12:01 PM
[2025-01-08 13:27] VITALS: PULSE 68
[2025-01-08] MEDS: MAG HYDROX/AL HYDROX/SIMETH 30 ML CUP PO STA (13:43)
[2025-01-08] MEDS: LACTULOSE 20 GM/30 ML CUP PO ONE (13:43)
[2025-01-08 14:03] VITALS: BP 138/89; RESP 20
== END 2025-01-08 14:01 | disposition home or self-care (01) ==
LOC: EC 08:10
DX: K80.20 Calculus of gallbladder without cholecystitis without obstruction (principal); F17.290 Nicotine dependence, other tobacco product, uncomplicated; Z88.5 Allergy status to narcotic agent; Z88.6 Allergy status to analgesic agent
CPT/HCPCS: 36415; 80053; 82150; 83690; 83735; 84100; 85025; 81003; 81025; 74177; 99284; 96374; 96375; 96372; J0500; J2405; Q9967; J1308